=== PATIENT | male | born 1960 | race Caucasian/White ===

== ENCOUNTER 2023-05-29 02:34 | Inpatient (IN) ==
--- OUTSIDE RECORDS SUMMARY | 2023-05-29 02:40 | External Medical Summary | Summary of Care ---
Author Name Unknown Organization [facility] Address [address] [place] [address] Phone [phone] Care Team Providers Care It Project Coordinator Name Role Phone Rodo Pineda Primary Care Provider Reason for Visit * Reason Comments Outpatient Testing Encounter Details Date Type Department Care Team (Late st Contact Info) Description 03/04/2023 2:10 PM EDT Laboratory Laboratory, [facility] [address] [place] [id number] [facility] [address] [place] [id number] Acquired hypothyroidism; Schizoaffective disorder, bipolar type ([facility]); Prediabetes; DYSLIPIDEMIA, GOAL LDL BELOW 70; HOCM (hypertrophic obstructive cardiomyopathy) ([facility]) Allergies Active Allergy Reactions Criticality Noted Date Comments Bee Stings Hives Medium 03/08/2009 Niacin Itching High 03/26/2011 Penicillin V Potassium 08/26/2007 Pt told as a child he was allergic to it documented as of this encounter (statuses as of 03/04/2023) Medications Medication Sig Dispensed Refills Start Date End Date Status BENZTROPINE MESYLATE 1 MG PO TABSIndications:S chizoaffective disorder, chronic condition (HCC) 1 tab daily 30 5 09/02/2007 Active LOXAPINE SUCCINATE 50 MG PO CAPSIndications:S chizoaffective disorder, chronic condition (HCC) 1 cap at bedtime 60 Cap 2 04/16/2011 Active SERTRALINE HCL 100 MG PO TABSIndications:S chizoaffective disorder, chronic condition (HCC),Anxiety state one pill each day 100 Tab 0 10/08/2011 Active EPINEPHrine, anaphylaxis, (EPI-PEN) 0.3 MG/0.3ML SOAJ injection For a severe reaction: Place orange end against the outer thigh, press firmly, hold in place for 10 seconds and go to the Emergency room. 2 Device 3 08/01/2015 Active busPIRone (BUSPAR) 10 MG TabletIndications :Anxiety state Take 1 Tablet by mouth in the morning and 1 Tablet at noon and 1 Tablet before bedtime. 180 Tab 3 08/21/2016 Active hydrOXYzine Pamoate 50 MG Oral Capsule Take 1 Capsule by mouth 2 times a day as needed (anxiety/depressi on). 0 Active oxygen IN GAS Administer into nostril 2 L/min(Oxygen) continuous . 1 Each 0 10/17/2021 Active Additional Information Patient not taking.Reported on 11/19/2022 Combivent Respimat 20-100 MCG/ACT Inhalation Aerosol Solution (Ipratropium-Albu terol)Indications :COPD, severity to be determined (HCC) USE 1 INHALATION ORALLY 4 TIMES DAILY NEEDED FOR COUGH OR WHEEZING 12 g 3 04/30/2022 Active Lisinopril 40 MG Oral TabletIndications :HTN, goal below 130/80 TAKE 1 TABLET DAILY 90 Tablet 3 05/28/2022 Active Montelukast Sodium 10 MG Oral Tablet (Singulair)Indica tions:COPD, severity to be determined (HCC) TAKE 1 TABLET DAILY 90 Tablet 3 05/28/2022 Active amLODIPine Besylate 5 MG Oral Tablet (Norvasc) TAKE 1 TABLET DAILY 90 Tablet 3 07/05/2022 Active Lovastatin 40 MG Oral TabletIndications :Dyslipidemia, goal LDL below 70 TAKE 1 TABLET DAILY 90 Tablet 3 07/05/2022 Active Trelegy Ellipta 100-62.5-25 MCG/ACT Aerosol Powder Breath Activated (Fluticasone-Umec lidinium-Vilanter ol) Inhale 1 Puff by mouth in the morning. 180 Blister Dosing Unit 1 08/13/2022 Active metFORMIN HCl ER 500 MG Oral Tablet Extended Release 24 Hour (Glucophage XR) Take 2 Tablets by mouth at bedtime. 180 Tablet 3 11/19/2022 Active Levothyroxine Sodium 137 MCG Oral Tablet Take 1 Tablet by mouth in the morning. (at least 30 min prior to breakfast or other meds). 90 Tablet 3 12/03/2022 03/04/2023 Active Carvedilol 12.5 MG Oral Tablet (Coreg)Indication s:HOCM (hypertrophic obstructive cardiomyopathy) (HCC) TAKE 1 TABLET TWICE A DAY 180 Tablet 1 02/08/2023 Active documented as of this encounter (statuses as of 03/04/2023) Active Problems Problem Noted Date Diagnosed Date Medical marijuana use 03/04/2023 Need for prophylactic vaccin ation and inoculation against influenza 03/04/2023 Right kidney mass 08/13/2022 Moderate persistent asthma without complication 08/13/2022 Chronic respiratory failure with hypoxia, on home oxygen therapy 11/14/2021 Grade I diastolic dysfunction 09/27/2021 Body mass index (BMI) of 50.0 to 59.9 in adult 0 08/20/2021 Overview: Per Obesity protocol - Decreased visual acuity 12/17/2017 Prediabetes 07/22/2017 Overview: Per Prediabetes protocol #1 Chronic pain of left knee 07/07/2017 Alcohol dependence in remission 08/21/2016 Acquired hypothyroidism 11/07/2015 Heart murmur 05/04/2014 HOCM (hypertrophic obstructive cardiomyopathy) 0 10/14/2012 HTN, goal below 130/80 06/06/2011 Injury of ulnar nerve 03/26/2011 Carpal tunnel syndrome 02/28/2011 Incisional hernia 05/25/2009 DYSLIPIDEMIA, GOAL LDL BELOW 70 04/25/2009 Overview: Per Lipid Taxonomy. COPD, group B, by GOLD 2017 classification 03/08 Edema 03/08/2009 ADVANCE DIRECTIVE INFORMATION 11/09/2007 Overview: Yes, Patient instructed to provide copy of advance directive for provider to review and to be scanned into Electronic Medical Record Constipation 10/19/2007 Schizoaffective disorder, chronic condition 08/10 Unilateral inguinal hernia 08/26/2007 Anxiety state 08/26/2007 Knee pain, left 08/26/2007 documented as of this encounter (statuses as of 03/04/2023) Resolved Problems Problem Noted Date Diagnosed Date Resolved Date MICHELLE (dyspnea on exertion) 09/27/2021 External hemorrhoid 12/17/2017 03/04/20 23 COPD, mild 02/19/2017 05/14/2022 Body mass index (BMI) of 45. 0 to 49.9 in adult 02/10/2017 08/23/2021 Overview: Per Obesity protocol #1 Body mass index (BMI) of 40.0-44.9 in adult 07/26/2010 02/13/2017 Overview: Per Obesity protocol #1 Asthma with severity to be determined 11/02/2009 08/13/2022 Overview: Per Asthma Taxonomy ICD-10 update of inactive term Asthma, mild persistent 11/02/200906/13 Overview: Per Provider Protocol. Obesity, morbid (more than 1 00 lbs over ideal weight or BMI > 40) 08/08/2009 07/26/2010 Overview: Per Obesity Taxonomy ICD-10 update of inactive term ASCVD (arteriosclerotic card iovascular disease) 2009 05/22/2011 Alcohol abuse, unspecified 01/20/2008 0 08/21/2016 Stable angina 10/08/2007 05/22/2011 HTN, goal below 140/90 08/26/200702/28 HYPOTHYROIDISM NOS 08/26/2007 6 Asthma, allergic 08/26/2007 11/02/2009 Mixed dyslipidemia 08/26/2007 9 Overview: Per Lipid Taxonomy. Obesity, BMI not known 08/26/200708/08 Overview: Per Obesity Taxonomy History of tobacco use 08/26/200711/14 documented as of this encounter (statuses as of 03/04/2023) Immunizations Name Administration Dates Next Due COVID-19 mRNA, LNP-s, No Pre serve, 2-Dose Series (Moderna) 07/25/2020,06/27/2020 HEP A - Hepatitis A (Adult > 18 yrs) 09/09/2002, 04/11/2002 Hepatitis B, 20+ yrs 09/09/2002,05/12/2002,04/11 PPD 09/08/2006 Pneumococcal Conjugate Vacci ne, 20-valent (Pryxvun22) 11/14/2021 Pneumococcal Polysaccharide PPV23 (Pneumovax) 04/17/2003 SEASONAL INFLUENZA, PF, 6 M & Above, IM , (FLULAVAL or FLUZONE) 03/04/2023,03/10/2021,02/19/2017 Seasonal Influenza, Quadrivalent, ID 02/21/2022 Seasonal Influenza, Quadriva lent, No Preserve, IM 04/08/2016 Seasonal Influenza, Split, I IV3, With Preserve, Inj 05/04/2014,04/15/2013,04/15/2012,02/28,03/23/2010,02/06/2009,03/13/2007 TD - Tetanus/Diptheria (ADULT) 04/28/2006 TDAP (age 10 and older)(Boostrix) 04/15/2012 Zoster Vaccine Recombinant (Shingrix) 11/14/2021 ,07/31/2021 documented as of this encounter Social History Tobacco Use Types Packs/Day Years Used Date Smoking Tobacco: Former Cigarettes 1 41 0 06/28/2013 - 07/09/2013 Smokeless Tobacco: Current Snuff Alcohol Use Standard Drinks/Week Comments No 0 (1 standard drink = 0.6 oz pure alcohol) alcoholic -sober for "85 days" as of 03/26/10 PHQ-2 Answer Date Recorded PHQ Adult Total Score 0 11/19/2022 Hunger Vital Sign Answer Date Recorded Worried About Running Out of Food in the Last Ye ar Never true 06/06/2020 Ran Out of Food in the Last Year Never true 06/06/2020 Sex and Gender Information Value Date Recorded Sex Assigned at Not on file Gender Identity Not on file Sexual Orientation Not on file Job Start Date Occupation Industry Not on file Not on file Not on file documented as of this encounter Plan of Treatment Upcoming Encounters Date Type Department Care Team (Late st Contact Info) Description 05/27/2023 11:40 AM EST Office Visit Family Practice [facility] [address] [place] [id number] Renae Costello CRNP [address] [place] [phone] Pending Results Name Type Priority Associated Diagnoses Date /Time TSH WITH FREE T4 IF INDICATED Lab Routine Acquired hypothyroidism 03/04/2023 2:15 PM EDT CBC WITH WBC DIFFERENTIAL Lab Routine Schizoaffective disorder, bipolar type (HCC) 03/04/2023 2:15 PM EDT COMPREHENSIVE METABOLIC PANEL Lab Routine Schizoaffective disorder, bipolar type (HCC) 03/04/2023 2:15 PM EDT HEMOGLOBIN A1C Lab Routine Schizoaffective disorder, bipolar type (HCC) 03/04/2023 2:15 PM EDT LIPID PANEL WITH DIRECT LDL IF TG IS HIGH Lab Routine Schizoaffective disorder, bipolar type (HCC) 03/04/2023 2:15 PM EDT LITHIUM LEVEL Lab Routine Schizoaffective disorder, bipolar type (HCC) 03/04/2023 2:15 PM EDT T4, FREE Lab Routine Schizoaffective disorder, bipolar type (HCC) 03/04/2023 2:15 PM EDT CBC Lab Routine Schizoaffective disorder, bipolar type (HCC) 03/04/2023 2:15 PM EDT DIFFERENTIAL, AUTOMATED Lab Routine Schizoaffective disorder, bipolar type (HCC) 03/04/2023 2:15 PM EDT Scheduled Procedures Name Priority Associated Diagnoses Date/Ti me COLONOSCOPY FLEXIBLE PROXIMAL DIAGNOSTIC Recall History of colon polyps Health Maintenance Due Date Last Done Comments DTaP,Tdap,and Td Vaccines (2 - Td or Tdap) 04/15/2022 04/15/2012, 04/28/2006 COVID-19 Vaccine (3 - 2022- season) 2023 07/25/2020, 06/27/2020 COLONOSCOPY-EVERY 3 YRS AGES 18-100 09/09/2023 09/08/2020, 08/29/2015, 08/29/2015, Additional history exists Depression Screening 11/20/2023 11/19/2022 GFR 11/20/2023 11/19/2022, 07/2022, 11/14/2021, Additional history exists HbA1c 11/20/2023 11/19/2022, 07/2022, 11/14/2021, Additional history exists O2 ASSESSMENT COMPLETED IN PAST YEAR FOR COPD 11/20/2023 11/19/2022 TSH 01/08/2024 01/07/2023, 11/09, 05/14/2022, Additional history exists Albumin/Creatinine Ratio 05/14/2025 05/14/2022 Lipid Panel 11/14/2026 11/14/2021, 04/12, 03/15/2020, Additional history exists Hepatitis B Completed 09/09/2002, 05/2002, 04/11/2002 COLONOSCOPY-EVERY 5 YRS AGES 18-100 Discontinued 09/08/2020, 08/29/2015, 08/29/2015, Additional history exists Alpha-1 Antitrypsin Completed 07/31/2021 Pneumococcal Vaccine: Pediatrics (0 to 5 Years) and At-Risk Patients (6 to 64 Years) Completed 11/14/2021, 04/17/2003 Zoster Vaccines Completed 11/14/2021, 07/31/2021 LUNG CANCER SCREENING - USE SMARTSET [id number] Completed 07/30/2022, 07/16/2021, 07/14/2018, Additional history exists Influenza Vaccine (FLU shot) Completed 03/04/2023, 02/21/2022, 03/10/2021, Additional history exists GARDASIL-HPV IMMUNIZATION SERIES Aged Out No longer eligible based on patient's age to complete this topic MENINGOCOCCAL (MENACTRA/MENVEO) Aged Out No longer eligible based on patient's age to complete this topic documented as of this encounter Medical Devices Implanted Type Area Grass Cutter Device Identifier Shelf Expiration Date Model / Serial / Lot Mesh Supramesh [id number] - [id number] Implanted:Qty: 1 on 05/27/2009 [place] [facility] [place]: Abdomen CR BARD : DAVOL 03/12/2011 [id number] / / [id number] documented as of this encounter Visit Diagnoses Diagnosis Acquired hypothyroidism Unspecified hypothyroidism Schizoaffective disorder, bipolar type (HCC) Schizoaffective disorder, unspecified condition Prediabetes Other abnormal glucose DYSLIPIDEMIA, GOAL LDL BELOW 70 Other and unspecified hyperlipidemia HOCM (hypertrophic obstructive cardiomyopathy) (HCC) Hypertrophic obstructive cardiomyopathy documented in this encounter Advance Directives Latest Code Status on File Code Status Date Activated Date Inactivated Comments Full Code 05/27/2009 1:25 PM 06/01/2009 5:29 PM This order reflects the patients wishes and were consensually agreed upon. Question Answer Comments Discussion of Advance Directives occurred with: Patient Code Status History Code Status Date Activated Date Inactivated Comments Full Code 05/27/2009 12:40 PM 05/27/2009 1:25 PM This order reflects the patients wishes and were consensually agreed upon. Full Code 05/25/2009 12:49 PM 05/27/2009 12:40 PM Thi s order reflects the patients wishes and were consensually agreed upon. Care Teams It Project Coordinator Relationship Specialty Start Date End Date Rodo Pineda DO [address] [place] [id number] PCP - General Family Medicine 12/17/17 documented as of this encounter
--- OUTSIDE RECORDS SUMMARY | 2023-05-29 02:40 | External Medical Summary ---
Author Name Unknown Address Unknown Organization [id number]:[facility] [address] [place] [address] Laboratory Report Ordering Provider Test Date Status KAMAR SMITH 03/04/2023 14:15:34 Final Observation Date Value Abnormality Reference (Units ) Status SYNC LEUKOCYTES IN BLOOD BY AUTOMATED COUNT 03/04/2023 14:15:34 9.33 4.00-10.80 (K/uL) Final Segs 03/04/2023 14:15:34 73.3 40.0-75.0 (%) Final Lymphs % 03/04/2023 14:15:34 18.3 18.0-42.0 (%) Final Monos 03/04/2023 14:15:34 6.4 1.0-11.0 (%) Final Eosinophils 03/04/2023 14:15:34 1.6 0.0-6.0 (%) Final Basos 03/04/2023 14:15:34 0.4 0.0-2.0 (%) Final Absolute Segs 03/04/2023 14:15:34 6.83 1.80-7.70 (K/uL) Final Lymphs, absolute 03/04/2023 14:15:34 1.71 1.00-4.80 (K/ul) Final Monos, Abs 03/04/2023 14:15:34 0.60 0.00-1.10 (K/uL) Final Eos, Abs 03/04/2023 14:15:34 0.15 0.00-0.70 (K/uL) Final Basos, Abs 03/04/2023 14:15:34 0.04 0.00-0.20 (K/uL) Final [facility] [place] [id number]
--- OUTSIDE RECORDS SUMMARY | 2023-05-29 02:40 | External Medical Summary ---
Author Name Unknown Address Unknown Organization [id number]:[facility] [place] - [facility] [address] [facility] [id number] Laboratory Report Ordering Provider Test Date Status KAMAR SMITH 03/04/2023 14:15:34 Final Observation Date Value Abnormality Reference (Units ) Status HbA1C 03/04/2023 14:15:34 6.0 Above high normal 4. 0-5.6 (%) Final The use of HbA1c to monitor glycemic status is based on normal hemoglobin and HbA composition. This test should not be used in patients with abnormal hemoglobin that affects the half life of the red blood cell or the in vivo glycation rates. Glucose, estimated average 03/04/2023 14:15:34 126 Above high normal <126 (mg/dL) Akin al Performing Location [facility] - [facility] [address] [facility] [address] [facility] [address]
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
--- OUTSIDE RECORDS SUMMARY | 2023-05-29 02:40 | External Medical Summary | Summary of Care ---
Author Name Unknown Organization [facility] Address [address] [place] [address] Phone [phone] Care Team Providers Care Hearing Therapist Name Role Phone Tyrell Pineda DO Primary Care Provider Reason for Visit * Reason Comments eRx-Medication Refill Encounter Details Date Type Department Care Team (Late st Contact Info) Description 05/17/2023 Refill Family Practice [facility] [address] [place] [phone] Tyrell Pineda DO [address] [place] [address] CHRONIC AIRWAY OBSTRUCTION NEC (HCC); HTN, goal below 130/80 Allergies Active Allergy Reactions Criticality Noted Date Comments Bee Stings Hives Medium 03/08/2009 Niacin Itching High 03/26/2011 Penicillin V Potassium 08/26/2007 Pt told as a child he was allergic to it documented as of this encounter (statuses as of 05/19/2023) Medications Medication Sig Dispensed Refills Start Date End Date Status BENZTROPINE MESYLATE 1 MG PO TABSIndications: Schizoaffective disorder, chronic condition (HCC) 1 tab daily 30 5 09/02/2007 Active LOXAPINE SUCCINATE 50 MG PO CAPSIndications: Schizoaffective disorder, chronic condition (HCC) 1 cap at bedtime 60 Cap 2 04/16/2011 Active SERTRALINE HCL 100 MG PO TABSIndications: Schizoaffective disorder, chronic condition (HCC),Anxiety state one pill each day 100 Tab 0 10/08/2011 Active EPINEPHrine, anaphylaxis, (EPI-PEN) 0.3 MG/0.3ML SOAJ injection For a severe reaction: Place orange end against the outer thigh, press firmly, hold in place for 10 seconds and go to the Emergency room. 2 Device 3 08/01/2015 Active busPIRone (BUSPAR) 10 MG TabletIndication s:Anxiety state Take 1 Tablet by mouth in the morning and 1 Tablet at noon and 1 Tablet before bedtime. 180 Tab 3 08/21/2016 Active hydrOXYzine Pamoate 50 MG Oral Capsule Take 1 Capsule by mouth 2 times a day as needed (anxiety/depress ion). 0 Active oxygen IN GAS Administer into nostril 2 L/min(Oxygen) continuous . 1 Each 0 10/17/2021 Active Additional Information Patient not taking.Reported on 11/19/2022 Combivent Respimat 20-100 MCG/ACT Inhalation Aerosol Solution (Ipratropium-Alb uterol)Indicatio ns:COPD, severity to be determined ([facility]) USE 1 INHALATION ORALLY 4 TIMES DAILY NEEDED FOR COUGH OR WHEEZING 12 g 3 04/30/2022 Active amLODIPine Besylate 5 MG Oral Tablet (Norvasc) TAKE 1 TABLET DAILY 90 Tablet 3 07/05/2022 Active Lovastatin 40 MG Oral TabletIndication s:Dyslipidemia, goal LDL below 70 TAKE 1 TABLET DAILY 90 Tablet 3 07/05/2022 Active metFORMIN HCl ER 500 MG Oral Tablet Extended Release 24 Hour (Glucophage XR) Take 2 Tablets by mouth at bedtime. 180 Tablet 3 11/19/2022 Active Carvedilol 12.5 MG Oral Tablet (Coreg)Indicatio ns:HOCM (hypertrophic obstructive cardiomyopathy) (HCC) TAKE 1 TABLET TWICE A DAY 180 Tablet 1 02/08/2023 Active Trelegy Ellipta 100-62.5-25 MCG/ACT Aerosol Powder Breath Activated (Fluticasone-Ume clidinium-Vilant rodri) Inhale 1 Puff by mouth in the morning. 180 Blister Dosing Unit 2 05/16/2023 Active Montelukast Sodium 10 MG Oral Tablet (Singulair)Indic ations:COPD, severity to be determined (HCC) TAKE 1 TABLET DAILY 90 Tablet 2 05/19/2023 Active Lisinopril 40 MG Oral TabletIndication s:HTN, goal below 130/80 TAKE 1 TABLET DAILY 90 Tablet 2 05/19/2023 Active Lisinopril 40 MG Oral TabletIndication s:HTN, goal below 130/80 TAKE 1 TABLET DAILY 90 Tablet 3 05/28/2022 05/19/19 24 Discontinued Montelukast Sodium 10 MG Oral Tablet (Singulair)Indic ations:COPD, severity to be determined (HCC) TAKE 1 TABLET DAILY 90 Tablet 3 05/28/2022 05/19/19 24 Discontinued documented as of this encounter (statuses as of 05/19/2023) Active Problems Problem Noted Date Diagnosed Date Body mass index (BMI) of 45.0 to 49.9 in adult 1 05/24/2022 Overview: Per Obesity protocol - Per Obesity protocol - Medical marijuana use 03/04/2023 Need for prophylactic vaccin ation and inoculation against influenza 03/04/2023 Right kidney mass 08/13/2022 Moderate persistent asthma without complication 08/13/2022 Chronic respiratory failure with hypoxia, on home oxygen therapy 11/14/2021 Grade I diastolic dysfunction 09/27/2021 Decreased visual acuity 12/17/2017 Prediabetes 07/22/2017 Overview: [...] as of this encounter (statuses as of 05/19/2023) Resolved Problems Problem Noted Date Diagnosed Date Resolved Date MICHELLE (dyspnea on exertion) 09/27/2021 Body mass index (BMI) of 50. 0 to 59.9 in adult 08/20/2021 03/27/2023 Overview: Per Obesity protocol - External hemorrhoid 12/17/2017 03/04/20 23 COPD, mild [...] as of this encounter (statuses as of 05/19/2023) Immunizations Name Administration Dates Next Due COVID-19 mRNA, LNP-s, No Pre serve, 2-Dose Series (Moderna) 07/25/2020,06/27/2020 HEP A - Hepatitis A (Adult > 18 yrs) 09/09/2002, 04/11/2002 Hepatitis B, 20+ yrs 09/09/2002,05/12/2002,04/11 PPD 09/08/2006 Pneumococcal Conjugate Vacci ne, 20-valent ([id number]) 11/14/2021 Pneumococcal Polysaccharide PPV23 (Pneumovax) 04/17/2003 Seasonal Influenza, PF, 6 M & above, IM , (FluLaval or Fluzone) 03/04/2023,03/10/2021,02/19/2017 Seasonal Influenza, Quadrivalent, ID 02/21/2022 Seasonal [...] on file documented as of this encounter Miscellaneous Notes * Telephone Encounter - Iain Corado [facility] - 05/19/2023 10:48 AM ESTSigned Prescriptions: Disp Refills Montelukast Sodium 10 MG Oral Tablet (Sing*90 Tab*2 Sig: TAKE 1TABLET DAILYAuthorizing Provider: TYRELL PINEDA User: IAIN CORADO [id number] MG Oral Tablet 90 Tab*2 Sig: TAKE 1 TABLET DAILYAuthorizing Provider: TYRELL PINEDA User: IAIN CORADO documented in this encounter Plan of Treatment Upcoming Encounters Date Type Department Care Team (Late st Contact Info) Description 05/27/2023 11:40 AM EST Office Visit Family Practice [facility] [address] [facility] [place] [address] Renae Costello CRNP [address] [facility] [place] [phone] Scheduled Procedures Name Priority Associated Diagnoses Date/Ti me COLONOSCOPY FLEXIBLE PROXIMAL DIAGNOSTIC Recall History of colon polyps Health Maintenance Due Date Last Done Comments DTaP,Tdap,and Td Vaccines (2 - Td or Tdap) 04/15/2022 04/15/2012, 04/28/2006 COVID-19 Vaccine (3 - 2022- season) 2023 07/25/2020, 06/27/2020 COLONOSCOPY-EVERY 3 YRS AGES 18-100 09/09/2023 09/08/2020, 08/29/2015, 08/29/2015, Additional history exists Depression Screening 11/20/2023 11/19/2022 O2 ASSESSMENT COMPLETED IN PAST YEAR FOR COPD 11/20/2023 11/19/2022 GFR 03/04/2024 03/04/2023, 11/09, 05/14/2022, Additional history exists HbA1c 03/04/2024 03/04/2023, 11/09, 05/14/2022, Additional history exists Albumin/Creatinine Ratio 05/14/2025 05/14/2022 Lipid Panel 03/04/2028 03/04/2023, 10/2021, 04/30/2021, Additional history exists Hepatitis B Completed 09/09/2002, 05/2002, 04/11/2002 COLONOSCOPY-EVERY 5 YRS AGES 18-100 Discontinued 09/08/2020, 08/29/2015, 08/29/2015, Additional history exists Alpha-1 Antitrypsin Completed 07/31/2021 Pneumococcal Vaccine: Pediatrics (0 to 5 Years) and At-Risk Patients (6 to 64 Years) Completed 11/14/2021, 04/17/2003 Zoster Vaccines Completed 11/14/2021, 07/31/2021 LUNG CANCER SCREENING - USE SMARTSET [id number] Completed 07/30/2022, 07/16/2021, 07/14/2018, Additional history exists Influenza Vaccine (FLU shot) Completed 03/04/2023, 02/21/2022, 02/19/2022, Additional history exists GARDASIL-HPV IMMUNIZATION SERIES Aged Out No longer eligible based on patient's age to complete this topic MENINGOCOCCAL (MENACTRA/MENVEO) Aged Out No longer eligible based on patient's age to complete this topic documented as of this encounter Medical Devices Implanted Type Area Freight Sales Broker Device Identifier Shelf Expiration Date Model / Serial / Lot Mesh Supramesh [id number] - [id number] Implanted:Qty: 1 on 05/27/2009 at [place] [facility] [place] N/A: Abdomen CR BARD : DAVOL 03/12/2011 [id number] / / [id number] documented as of this encounter Visit Diagnoses Diagnosis CHRONIC AIRWAY OBSTRUCTION NEC (HCC) Chronic airway obstruction, not elsewhere classified HTN, goal below 130/80 Unspecified essential hypertension documented in this encounter Advance Directives Latest [...] and were consensually agreed upon. Care Teams Hearing Therapist Relationship Specialty Start Date End Date Tyrell Pineda DO [address] [place] [phone] PCP - General Family Medicine 12/17/17 documented as of this encounter
--- OUTSIDE RECORDS SUMMARY | 2023-05-29 02:40 | External Medical Summary | Summary of Care ---
Author Name Unknown Organization [facility] Address [address] [place] [facility] [address] Phone [phone] Care Team Providers Care Appliance Service Representative Name Role Phone Rodo Pineda Primary Care Provider Reason for Visit * Reason Onset Date Comments Forms Request 03/18/2023 Encounter Details Date Type Department Care Team (Late st Contact Info) Description 03/18/2023 Telephone Family Practice [facility] [address] [place] [address] Ofe Cagle LPN Forms Request Allergies Active Allergy Reactions Criticality Noted Date Comments Bee Stings Hives Medium 03/08/2009 Niacin Itching High 03/26/2011 Penicillin V Potassium 08/26/2007 Pt told as a child he was allergic to it documented as of this encounter (statuses as of 03/18/2023) Medications Medication Sig Dispensed Refills Start Date End Date Status BENZTROPINE MESYLATE 1 MG PO TABSIndications:Sc hizoaffective disorder, chronic condition (HCC) 1 tab daily 30 5 09/02/2007 Active LOXAPINE SUCCINATE 50 MG PO CAPSIndications:Sc hizoaffective disorder, chronic condition (HCC) 1 cap at bedtime 60 Cap 2 04/16/2011 Active SERTRALINE HCL 100 MG PO TABSIndications:Sc hizoaffective disorder, chronic condition (HCC),Anxiety state one pill each day 100 Tab 0 10/08/2011 Active EPINEPHrine, anaphylaxis, (EPI-PEN) 0.3 MG/0.3ML SOAJ injection For a severe reaction: Place orange end against the outer thigh, press firmly, hold in place for 10 seconds and go to the Emergency room. 2 Device 3 08/01/2015 Active busPIRone (BUSPAR) 10 MG TabletIndications: Anxiety state Take 1 Tablet by mouth in [...] Combivent Respimat 20-100 MCG/ACT Inhalation Aerosol Solution (Ipratropium-Albut rodri)Indications:C OPD, severity to be determined ([facility]) USE 1 INHALATION ORALLY 4 TIMES DAILY NEEDED FOR COUGH OR WHEEZING 12 g 3 04/30/2022 Active Lisinopril 40 MG Oral TabletIndications: HTN, goal below 130/80 TAKE 1 TABLET DAILY 90 Tablet 3 05/28/2022 Active Montelukast Sodium 10 MG Oral Tablet (Singulair)Indicat ions:COPD, severity to be determined (HCC) TAKE 1 TABLET DAILY 90 Tablet 3 05/28/2022 Active amLODIPine Besylate 5 MG Oral Tablet (Norvasc) TAKE 1 TABLET DAILY 90 Tablet 3 07/05/2022 Active Lovastatin 40 MG Oral TabletIndications: Dyslipidemia, goal LDL below 70 TAKE 1 TABLET DAILY 90 Tablet 3 07/05/2022 Active Trelegy Ellipta 100-62.5-25 MCG/ACT Aerosol Powder Breath Activated (Fluticasone-Umecl idinium-Vilanterol ) Inhale 1 Puff by mouth in the morning. 180 Blister Dosing Unit 1 08/13/2022 Active metFORMIN HCl ER 500 MG Oral Tablet Extended Release 24 Hour (Glucophage XR) Take 2 Tablets by mouth at bedtime. 180 Tablet 3 11/19/2022 Active Carvedilol 12.5 MG Oral Tablet (Coreg)Indications :HOCM (hypertrophic obstructive cardiomyopathy) (HCC) TAKE 1 TABLET TWICE A DAY 180 Tablet 1 02/08/2023 Active documented as of this encounter (statuses as of 03/18/2023) Active Problems Problem Noted Date Diagnosed Date [...] as of this encounter (statuses as of 03/18/2023) Resolved Problems Problem Noted Date Diagnosed Date Resolved Date MICHELLE (dyspnea on exertion) 09/27/2021 External hemorrhoid 12/17/2017 03/04/20 COPD, mild 02/19/2017 05/14/2022 Body mass index [...] as of this encounter (statuses as of 03/18/2023) Immunizations Name Administration Dates Next Due COVID-19 mRNA, LNP-s, No Pre serve, 2-Dose Series (Moderna) 07/25/2020,06/27/2020 HEP A - Hepatitis A (Adult > 18 yrs) 09/09/2002, 04/11/2002 Hepatitis B, 20+ yrs 09/09/2002,05/12/2002,04/11 PPD 09/08/2006 Pneumococcal Conjugate Vacci ne, 20-valent ([id number]) 11/14/2021 Pneumococcal Polysaccharide PPV23 (Pneumovax) 04/17/2003 SEASONAL [...] encounter Miscellaneous Notes * Telephone Encounter - Ofe Cagle LPN - 03/18/2023 4:17 PM EST Received forms request from [facility]. Form requested recent labs and vitals along with diagnosis list. Form faxed to Attn: Ronel Mayfield RN at [phone]. Form placed in scanning. documented in this encounter Plan of Treatment Upcoming Encounters Date Type Department Care Team (Late st Contact Info) Description 05/27/2023 11:40 AM EST Office Visit [facility] [address] [place] [address] Renae Costello CRNP [address] [place] [address] Scheduled Procedures Name Priority Associated Diagnoses Date/Ti [...] 07/31/2021 LUNG CANCER SCREENING - USE SMARTSET [id number] Completed 07/30/2022, 07/16/2021, 07/14/2018, Additional history exists Influenza Vaccine (FLU shot) Completed 03/04/2023, 02/21/2022, 03/10/2021, Additional history exists GARDASIL-HPV IMMUNIZATION SERIES Aged Out No longer eligible based on patient's age to complete this topic MENINGOCOCCAL (MENACTRA/MENVEO) Aged Out No longer eligible based on patient's age to complete this topic documented as of this encounter Medical Devices Implanted Type Area Netbackup Engineer Device Identifier Shelf Expiration Date Model / Serial / Lot Mesh Supramesh 4x8 [id number] - [id number] Implanted:Qty: 1 on 05/27/2009 [place] [facility] [place]: Abdomen CR BARD : DAVOL 03/12/2011 [id number] / / [id number] documented as of this encounter Advance Directives Latest Code Status [...] and were consensually agreed upon. Care Teams Appliance Service Representative Relationship Specialty Start Date End Date Rodo Pineda DO [address] [place] [address] PCP - General Family Medicine 12/17/17 documented as of this encounter
--- OUTSIDE RECORDS SUMMARY | 2023-05-29 02:40 | External Medical Summary | Summary of Care ---
Author Name Unknown Organization [facility] Address [address] [facility] [address] Phone [phone] Care Team Providers Care Mat Cutter Name Role Phone Tyrell Pineda DO Primary Care Provider Reason for Visit * Reason Onset Date Comments Medication Refill 05/15/2023 Encounter Details Date Type Department Care Team (Late st Contact Info) Description 05/15/2023 Refill Family Practice [facility] [address] [place] [address] Tyrell Pineda DO [address] [place] [address] Allergies Active Allergy Reactions Criticality Noted Date Comments Bee Stings Hives Medium 03/08/2009 Niacin Itching High 03/26/2011 Penicillin V Potassium 08/26/2007 Pt told as a child he was allergic to it documented as of this encounter (statuses as of 05/16/2023) Medications Medication Sig Dispensed Refills Start Date [...] (Ipratropium-Albu terol)Indications :COPD, severity to be determined ([facility]) USE 1 INHALATION ORALLY 4 TIMES DAILY NEEDED FOR COUGH OR WHEEZING 12 g 3 04/30/2022 Active Lisinopril 40 MG Oral TabletIndications :HTN, goal below 130/80 TAKE 1 TABLET DAILY 90 Tablet 3 05/28/2022 Active Montelukast Sodium 10 MG Oral Tablet (Singulair)Indica tions:COPD, severity to be determined ([facility]) TAKE 1 TABLET DAILY 90 Tablet 3 [...] 11/19/2022 Active Carvedilol 12.5 MG Oral Tablet (Coreg)Indication s:HOCM (hypertrophic obstructive cardiomyopathy) ([facility]) TAKE 1 TABLET TWICE A DAY 180 Tablet 1 02/08/2023 Active Trelegy Ellipta 100-62.5-25 MCG/ACT Aerosol Powder Breath Activated (Fluticasone-Umec lidinium-Vilanter ol) Inhale 1 Puff by mouth in the morning. 180 Blister Dosing Unit 2 05/16/2023 Active Trelegy Ellipta 100-62.5-25 MCG/ACT Aerosol Powder Breath Activated (Fluticasone-Umec lidinium-Vilanter ol) Inhale 1 Puff by mouth in the morning. 180 Blister Dosing Unit 1 08/13/2022 4 Discontinue d(Refill) documented as of this encounter (statuses as of 05/16/2023) Active Problems Problem Noted Date Diagnosed Date [...] as of this encounter (statuses as of 05/16/2023) Resolved Problems Problem Noted Date Diagnosed Date [...] as of this encounter (statuses as of 05/16/2023) Immunizations Name Administration Dates Next Due COVID-19 mRNA, LNP-s, No Pre serve, 2-Dose Series (Moderna) 07/25/2020,06/27/2020 HEP A - Hepatitis A (Adult > 18 yrs) 09/09/2002, 04/11/2002 Hepatitis B, 20+ yrs 09/09/2002,05/12/2002,04/11 PPD 09/08/2006 Pneumococcal Conjugate Vacci ne, 20-valent ([id number]) 11/14/2021 Pneumococcal Polysaccharide PPV23 (Pneumovax) 04/17/2003 Seasonal [...] encounter Miscellaneous Notes * Telephone Encounter - Maida Han RP - 05/16/2023 4:09 PM ESTSigned Prescriptions: Disp Refills Trelegy Ellipta 100-62.5-25 MCG/ACT Aeroso*180 Bl*2 Sig: Inhale 1 Puff by mouth in the morning. Authorizing Provider: TYRELL PINEDA Ordering User: MAIDA HAN * Telephone Encounter - Mary Lima CPhT - 05/15/2023 5:16 PM EST Did you pend patient's preferred pharmacy and medication before forwarding?yes [id number] Pending Prescriptions: Disp Refills Trelegy Ellipta 100-62.5-25 MCG/ACT Aeros*180 Bl*1 Sig: Inhale 1 Puff by mouth in the morning. Last Visit: 03/04/2023 (in office), 06/06/2020 (telemedicine) Next Visit: 05/27/2023 If no future appointments scheduled, and last appointment is greater than a year ago, please schedule patient for a follow-up appointment Last date the medication was ordered: 08/13/2022 Is this request for a controlled substance?No Urine Drug Screen:No results found for this or any previous visit. Patient Phone Numbers Labs: Lab Results Component Value Date/Time CREAT 0.9 03/04/2023 02:15 PM CREAT 0.9 03/15/2020 10:38 AM POTASSIUM 4.7 03/04/2023 02:15 PM POTASSIUM 4.6 03/15/2020 10:38 AM TSH 1.87 03/04/2023 02:15 PM TSH 2.80 03/15/2020 10:38 AM LDLCALC 85 03/04/2023 02:15 PM LDLCALC 91 06/24/2018 10:39 AM LDLDIRECT 101 03/15/2020 10:38 AM LDLDIRECT 135 (H) 07/06/2015 12:49 PM ALT 16 03/04/2023 02:15 PM ALT 17 07/07/2017 10:20 AM HGBA1C 6.0 (H) 03/04/2023 02:15 PM HGBA1C 5.7 (H) 01/06/2019 10:54 AM documented in this encounter Plan of Treatment Upcoming Encounters Date Type Department Care Team (Late st Contact Info) Description 05/27/2023 11:40 AM EST Office Visit Family Practice [facility] [address] [place] [address] Renae Costello CRNP [address] [place] [address] Scheduled Procedures Name Priority Associated Diagnoses Date/Ti me COLONOSCOPY FLEXIBLE PROXIMAL DIAGNOSTIC Recall History of colon polyps Health Maintenance Due Date Last Done Comments DTaP,Tdap,and Td Vaccines (2 - Td or Tdap) 04/15/2022 04/15/2012, 04/28/2006 COVID-19 Vaccine (3 - season) 2023 07/25/2020, 06/27/2020 COLONOSCOPY-EVERY 3 YRS [...] 07/31/2021 LUNG CANCER SCREENING - USE SMARTSET [id number] Completed 07/30/2022, 07/16/2021, 07/14/2018, Additional history exists Influenza Vaccine (FLU shot) Completed 03/04/2023, 02/21/2022, 02/19/2022, Additional history exists GARDASIL-HPV IMMUNIZATION SERIES Aged Out No longer eligible based on patient's age to complete this topic MENINGOCOCCAL (MENACTRA/MENVEO) Aged Out No longer eligible based on patient's age to complete this topic documented as of this encounter Medical Devices Implanted Type Area Outside Plant Field Engineer Device Identifier Shelf Expiration Date Model / Serial / Lot Mesh Supramesh 4x8 [id number] - [id number] Implanted:Qty: 1 on 05/27/2009 at [place] [facility] [place] N/A: Abdomen CR BARD : DAVOL 03/12/2011 [id number] / / [id number] documented as of this encounter Advance Directives [...] and were consensually agreed upon. Care Teams Mat Cutter Relationship Specialty Start Date End Date Tyrell Pineda DO [address] [place] [address] PCP - General Family Medicine 12/17/17 documented as of this encounter
--- OUTSIDE RECORDS SUMMARY | 2023-05-29 02:40 | External Medical Summary ---
Author Name Unknown Address Unknown Organization [id number][place] [place] [address] [facility] [address] Laboratory Report Ordering Provider Test Date Status KAMAR SMITH 03/04/2023 14:15:34 Final Observation Date Value Abnormality Reference (Units ) Status Triglyceride 03/04/2023 14:15:34 196 Above high normal <=174 (mg/dL) Final Triglyceride Reference Range s (mg/dL):
<150 Acceptable
150-174 Borderline high
175-499 High
>=500 Very high Cholesterol 03/04/2023 14:15:34 161 <200 (mg /dL) Final Total Cholesterol Reference Ranges (mg/dL):
<200 Desirable
200-239 Borderline high
>=240 High HDL 03/04/2023 14:15:34 37 Below low normal >39 (mg/dL) Final HDL Cholesterol Reference Ra nges (mg/dL):
>=60 High (Desirable)
<50 Low (Undesirable) For Females
<40 Low (Undesirable) For Males NON-HDL CHOLESTEROL 03/04/2023 14:15:34 124 <=159 (mg/dL) Final Non-HDL Cholesterol Referenc e Range (mg/dL):
<100 Target level for high risk ASCVD patient
<130 Optimal for general population
130-159 Near optimal for general population
160-189 Borderline High
190-219 High
>=220 Very High LDL, (calculated) 03/04/2023 14:15:34 85 <= 129 (mg/dL) Final LDL Cholesterol Reference Ra nges (mg/dL):
<70 Target level for high risk ASCVD patient
<100 Optimal for general population
100-129 Near optimal for general population
130-159 Borderline high
160-189 High
>=190 Very high Performing Location [facility] [place] [address] [facility] [address]
--- OUTSIDE RECORDS SUMMARY | 2023-05-29 02:40 | External Medical Summary ---
Author Name Unknown Address Unknown Organization [id number][place] [place] [address] [place] [address] Laboratory Report Ordering Provider Test Date Status KAMAR SMITH 03/04/2023 14:15:34 Final Observation Date Value Abnormality Reference (Units ) Status [place] [Moles/volume] in Blood 03/04/2023 14:15:34 <0.1 Below low normal 0.6-1.2 (mmol/L) Final Performing Location [facility] [place] [address] [place] [address]
--- OUTSIDE RECORDS SUMMARY | 2023-05-29 02:40 | External Medical Summary | Summary of Care ---
Author Name Unknown Organization [facility] Address [address] [facility] [address] Phone [phone] Care Team Providers Care Nut Sheller Name Role Phone Elsie Pinedar Mark Primary Care Provider Encounter Details Date Type Department Care Team (Late st Contact Info) Description 03/05/2023 Telephone Family Practice [facility] [address] [place] [address] Renae Costello CRNP [address] [place] [address] Allergies Active Allergy Reactions Criticality Noted Date Comments Bee Stings Hives Medium 03/08/2009 Niacin Itching High 03/26/2011 Penicillin V Potassium 08/26/2007 Pt told as a child he was allergic to it documented as of this encounter (statuses as of 03/06/2023) Medications Medication Sig Dispensed Refills Start Date [...] (Ipratropium-Albut rodri)Indications:C OPD, severity to be determined (HCC) USE 1 [...] as of this encounter (statuses as of 03/06/2023) Active Problems Problem Noted Date Diagnosed Date [...] as of this encounter (statuses as of 03/06/2023) Resolved Problems Problem Noted Date Diagnosed Date [...] 6 Asthma, allergic 08/26/2007 11/02/2009 Mixed dyslipidemia 08/26/2007200 9 Overview: Per Lipid Taxonomy. Obesity, BMI not known 08/26/200708/08 Overview: Per Obesity Taxonomy History of tobacco use 08/26/200711/14 documented as of this encounter (statuses as of 03/06/2023) Immunizations Name Administration Dates Next Due COVID-19 mRNA, LNP-s, No Pre serve, 2-Dose Series (Moderna) 07/25/2020,06/27/2020 HEP A - Hepatitis A (Adult > 18 yrs) 09/09/2002, 04/11/2002 Hepatitis B, 20+ yrs 09/09/2002,05/12/2002,04/11 PPD 09/08/2006 Pneumococcal Conjugate Vacci ne, 20-valent ([id number]) 11/14/2021 Pneumococcal Polysaccharide PPV23 (Pneumovax) 04/17/2003 SEASONAL [...] encounter Miscellaneous Notes * Telephone Encounter - Adriana Sultana LPN - 03/06/2023 4:15 PM EDT Patient is aware and verbalizes understanding. * Telephone Encounter - Leandra Sommer LPN - 03/06/2023 4:04 PM EDT Called pt and left a vm message to call the nurse line. See Trang's note below. * Telephone Encounter - SMITHA Bess - 03/05/2023 4:31 PM EDT Please notify patient Liver, kidney functions normal Thyroid normal A1C is improved and now at 6.0 meaning his prediabetes is better. His diet changes and weight loss are improving his health Brooks, MSN, SMITHA [facility] Medicine documented in this encounter Plan of Treatment Upcoming Encounters Date Type Department Care Team (Late st Contact Info) Description 05/27/2023 11:40 AM EST Office Visit Family Practice [facility] [address] [place] [address] Renae Costello CRNP [address] [place] [address] Scheduled Procedures Name Priority Associated Diagnoses Date/Ti [...] 07/31/2021 LUNG CANCER SCREENING - USE SMARTSET [id number] Completed 07/30/2022, 07/16/2021, 07/14/2018, Additional history exists Influenza Vaccine (FLU shot) Completed 03/04/2023, 02/21/2022, 03/10/2021, Additional history exists GARDASIL-HPV IMMUNIZATION SERIES Aged Out No longer eligible based on patient's age to complete this topic MENINGOCOCCAL (MENACTRA/MENVEO) Aged Out No longer eligible based on patient's age to complete this topic documented as of this encounter Medical Devices Implanted Type Area Manager Battery Device Identifier Shelf Expiration Date Model / Serial / Lot Mesh Supramesh 4x8 [id number] - [id number] Implanted:Qty: 1 on 05/27/[address] [facility] [place] N/A: Abdomen CR BARD : DAVOL 03/12/2011 [id number] / / [id number] documented as of this encounter Advance Directives [...] and were consensually agreed upon. Care Teams Nut Sheller Relationship Specialty Start Date End Date Rodo Pineda DO [address] [place] [address] PCP - General Family Medicine 12/17/17 documented as of this encounter
--- OUTSIDE RECORDS SUMMARY | 2023-05-29 02:40 | External Medical Summary ---
Author Name Unknown Address Unknown Organization K0G:LABORATORY [facility] [address] [place] [address] Laboratory Report Ordering Provider Test Date Status KAMAR SMITH 03/04/2023 14:15:34 Final Observation Date Value Abnormality Reference (Units ) Status WBC, Total 03/04/2023 14:15:34 9.33 4.00-10.8 0 (K/uL) Final RBC 03/04/2023 14:15:34 5.64 4.50-5.25 (M/uL) Final Hemoglobin 03/04/2023 14:15:34 15.8 14.0-16.8 (g/dL) Final HCT 03/04/2023 14:15:34 48.1 40.0-48.4 (%) Final MCV 03/04/2023 14:15:34 85.3 82.0-99.5 (fL) Final MCH 03/04/2023 14:15:34 28.0 27.0-34.0 (pg) Final MCHC 03/04/2023 14:15:34 32.8 32.0-36.0 (g/dL) Final RDW 03/04/2023 14:15:34 14.8 11.5-15.5 (%) Final Platelets 03/04/2023 14:15:34 337 140-400 (K /uL) Final MPV 03/04/2023 14:15:34 8.8 6.6-11.1 ( fL) Final Performing Location [facility]ORY [facility] [place] [address] - [address] [place] [address]
--- OUTSIDE RECORDS SUMMARY | 2023-05-29 02:40 | External Medical Summary ---
Author Name Unknown Address Unknown Organization K01:LAB[facility]ATORY [facility] - [address] [place] [address] Laboratory Report Ordering Provider Test Date Status KAMAR SMITH 03/04/2023 14:15:34 Final Observation Date Value Abnormality Reference (Units ) Status T4, Free 03/04/2023 14:15:34 1.5 0.9-1.7 (n g/dL) Final Performing Location LABORATORY [facility] - [address] [place] [address]
--- OUTSIDE RECORDS SUMMARY | 2023-05-29 02:41 | External Medical Summary | Summary of Care ---
Author Name Unknown Organization [facility] Address [address] [place] [address] Phone [phone] Care Team Providers Care Nursery Manager Name Role Phone Rodo Pineda Primary Care Provider Reason for Visit * Reason Comments Medical Nutrition Therapy Follow Up Encounter Details Date Type Department Care Team Description 02/28/2023 Telemedicine Nutrition, [facility] [address] [place] [address] Barbara Mukherjee, ELIECER [address] [place] [address] Prediabetes*; Body mass index (BMI) of 50.0 to 59.9 in adult (HCC); Dyslipidemia, goal LDL below 70; HTN, goal below 130/80; Schizoaffective disorder, chronic condition (HCC) Allergies Active Allergy Reactions Severity Noted Date Comments Bee Stings Hives Medium 03/08/2009 Niacin Itching High 03/26/2011 Penicillin V Potassium 08/26/2007 Pt told as a child he was allergic to it documented as of this encounter (statuses as of 02/28/2023) Medications Medication Sig Dispensed Refills Start Date [...] at bedtime. 180 Tablet 3 11/19/2022 Active Docusate Sodium 100 MG Oral Capsule (Colace) Take 1 Capsule by mouth in the morning and 1 Capsule before bedtime. 180 Capsule 3 12/03/2022 03/03/2023 Active Levothyroxine Sodium 137 MCG Oral Tablet Take 1 Tablet by mouth in the morning. (at least 30 min prior to breakfast or other meds). 90 Tablet 3 12/03/2022 03/03/2023 Active Carvedilol 12.5 MG Oral Tablet (Coreg)Indication s:HOCM (hypertrophic obstructive cardiomyopathy) (HCC) TAKE 1 TABLET TWICE A DAY 180 Tablet 1 02/08/2023 Active documented as of this encounter (statuses as of 02/28/2023) Active Problems Problem Noted Date Right kidney mass 08/13/2022 Moderate persistent asthma without compl ication 08/13/2022 Chronic respiratory failure with hypoxia , on home oxygen therapy 11/14/2021 MICHELLE (dyspnea on exertion) 09/27/2021 Grade I diastolic dysfunction 09/27/2021 Body mass index (BMI) of 50.0 to 59.9 in adult 08/20/2021 Overview: Per Obesity protocol - Decreased visual acuity 12/17/2017 External hemorrhoid 12/17/2017 Prediabetes 07/22/2017 Overview: Per Prediabetes protocol #1 Chronic pain of left knee 07/07/2017 Alcohol dependence in remission 08/22/19 17 Acquired hypothyroidism 11/07/2015 Heart murmur 05/04/2014 HOCM (hypertrophic obstructive cardiomyo kuldip) 10/14/2012 HTN, goal below 130/80 06/06/2011 Injury of ulnar nerve 03/26/2011 Carpal tunnel syndrome 02/28/2011 Incisional hernia 05/25/2009 DYSLIPIDEMIA, GOAL LDL BELOW 70 04/25/20 09 Overview: Per Lipid Taxonomy. COPD, group B, by GOLD 2017 classificati on 03/08/2009 Edema 03/08/2009 ADVANCE DIRECTIVE INFORMATION 11/09/2007 Overview: Yes, Patient instructed to provide copy of advance directive for provider to review and to be scanned into Electronic Medical Record Constipation 10/19/2007 Schizoaffective disorder, chronic condit ion 08/26/2007 Unilateral inguinal hernia 08/26/2007 Anxiety state 08/26/2007 Knee pain, left 08/26/2007 documented as of this encounter (statuses as of 02/28/2023) Resolved Problems Problem Noted Date Resolved Date COPD, mild 02/19/2017 05/14/2022 Body mass index (BMI) of 45.0 to 49.9 in adult 1 08/23/2021 Overview: Per Obesity protocol #1 Body mass index (BMI) of 40.0-44.9 in adult 07/1002/13/2017 Overview: Per Obesity protocol #1 Asthma with severity to be determined 11/02/2009 08/13/2022 Overview: Per Asthma Taxonomy ICD-10 update of inactive term Asthma, mild persistent 11/02/2009 07/06/19 16 Overview: Per Provider Protocol. Obesity, morbid (more than 1 00 lbs over ideal weight or BMI > 40) 08/08/2009 07/26/2010 Overview: Per Obesity Taxonomy ICD-10 update of inactive term ASCVD (arteriosclerotic cardiovascular disease) 2009 05/22/2011 Alcohol abuse, unspecified 01/20/200808/21 Stable angina 10/08/2007 05/22/2011 HTN, goal below 140/90 08/26/2007 1 HYPOTHYROIDISM NOS 08/26/2007 11/07/2015 Asthma, allergic 08/26/2007 11/02/2009 Mixed dyslipidemia 08/26/2007 04/25/2009 Overview: Per Lipid Taxonomy. Obesity, BMI not known 08/26/2007 0 Overview: Per Obesity Taxonomy History of tobacco use 08/26/2007 2 documented as of this encounter (statuses as of 02/28/2023) Immunizations Name Administration Dates Next Due COVID-19 mRNA, LNP-s, No Pre serve, 2-Dose Series (Moderna) 07/25/2020,06/27/2020 HEP A - Hepatitis A (Adult > 18 yrs) 09/09/2002, 04/11/2002 Hepatitis B, 20+ yrs 09/09/2002,05/12/2002,04/11 PPD 09/08/2006 Pneumococcal Conjugate Vacci ne, 20-valent ([id number]) 11/14/2021 Pneumococcal Polysaccharide PPV23 (Pneumovax) 04/17/2003 SEASONAL INFLUENZA, PF, 6 M & Above, IM , (FLULAVAL or FLUZONE) 03/10/2021,02/19/2017 Seasonal Influenza, Quadrivalent, ID 02/21/2022 Seasonal Influenza, [...] -sober for "85 days" as of 03/26/10 Food Insecurity Answer Date Recorded Within the past 12 months, y ou worried that your food would run out before you got money to buy more. Never true 01/06/2019 Within the past 12 months, t he food you bought just didn't last and you didn't have money to get more. Never true 01/06/2019 Sex Assigned at Date Recorded Not on file Job Start Date Occupation Industry Not on file Not on file Not on file documented as of this encounter Last Filed Vital Signs Vital Sign Reading Time Taken Comments Blood Pressure - - Pulse - - Temperature - - Respiratory Rate - - Oxygen Saturation - - Inhaled Oxygen Concentration - - Weight 152 kg (335 lb) 02/28/2023 1:00 PM EDT Height 173.9 cm (5' 8.47") 02/28/2023 1:00 PM ED T Body Mass Index 50.25 02/28/2023 1:00 PM EDT documented in this encounter Patient Instructions * Patient Instructions* Barbara Mukherjee RDN - 02/28/2023 1:24 PM EDT Patient will increase activity level by walking at least 3 times a week. Do 20 minutes sessions if able or do 2 10 minute sessions daily. Patient will monitor serving sizes of high-CHO foods to no more than 1/2 cup portions. Patient will include a low-carb vegetable at least 1 serving a day most days of the week. documented in this encounter Progress Notes * Barbara Mukherjee RDN - 02/28/2023 12:59 PM EDT NUTRITION FOLLOW-UP NOTE - OUTPATIENT [facility] Name: Will Bearden Location: [facility] Date: 02/28/2023 Time: 12:59 PM Patient was identified by name and date. After connecting to the patient via telephone, the patient was identified by name and date of . Patient was then informed that this was a telephone call only visit. The patient agreed to participate. Visit Disposition: Routine follow-up Total call duration was 28 minutes. Reason for Nutrition Follow-up: Prediabetes NUTRITION ASSESSMENT: Client History Patient is a 62 year old male being seen for above issue. Support System: sister, cousin, friends Barriers to Learning: mental health-schizophrenia. States he doesn't function well in public places. Special Education Needs: None Physical Activity: walking at least 2 times a week Food/Nutrition-Related History Describes typical diet history/24 hr recall Breakfast: 1 egg and 1 egg white or 2 egg whites or oatmeal with flax seed and cinnamon sugar, water with medicine, coffee, whole milk, tea Snacks: none Lunch: 1 PM spoonfuls of fruit, monegasque fries, pork or chicken breast, water or milk Snacks: sometimes handful of Chex mix Dinner: 5-6:30 PM chicken breast or pork loin, northern beans or kidney beans or Mckeon[employer] baked beans, water or milk Snacks: occasionally Chex mix Drinks: decaf tea-one cup black and one cup green, water, coffee-2 daily in AM, milk with most meals, water-64 ounces Restaurant meals: rarely per pt, Gene Gamez when sister visits Alcohol: decreased per pt report Tobacco Use: chews snuff daily, quit cigars recently Drug Use: medical marijuana 2 servings of vegetables daily, apple or sugar-free fruit daily per pt report Diet Recall/Food Logs Indicate: AREAS FOR IMPROVEMENT: High calorie, high fat and/or high sugar selections Inconsistent carbohydrate intake Inadequate fiber intake Inadequate fruit and vegetable intake POSITIVE: Uses calorie free beverages Adequate fluid intake Food and Nutrient Intake and other pertinent information: Patient reports working on portion sizes of his foods and experiencing less munchies lately. States he has not been walking a lot. Notes his weight has decreased and he feels better. Notes an improvement in his anxiety and mood since using medical marijuana. He continues to be assessed by nursing staff from [facility]. Medications Changes/Updates: medical marijuana per pt report Nutrition-Focused Physical Findings Deferred due to telephonic visit Anthropometric Measurements Current Weight: Wt Readings from Last 1 Encounters: 02/28/23 (!) 152 kg (335 lb) Wt Readings from Last 4 Encounters: 02/28/23 (!) 152 kg (335 lb) 12/03/22 (!) 155.2 kg (342 lb 2 oz) 11/22/22 (!) 157.6 kg (347 lb 7.1 oz) 11/19/22 (!) 157.6 kg (347 lb 8 oz) Weight Change: decreased by 12.5 pounds in the past 3 months per pt report BMI Readings from Last 1 Encounters: 02/28/23 50.25 kg/m Biochemical Data, Medical Tests, and Procedures No current labs since last visit. Patient states he will be having labs checked on 03/04. Previous Nutrition Diagnosis: Altered nutrition-related laboratory values related to prediabetes as evidenced by elevated Hgb [id number]. Overweight/obesity related to Large portions, High calorie, high fat and/or high sugar selections, Inconsistent carbohydrate intake as evidenced by Reported diet and/or activity recall, Body mass index is 52.11 kg/m. Progress towards goals: Patient will continue walking at least 5 days a week. Go ahead and separate sessions into 2-15 minute sessions daily or 3-10 minute sessions daily. NOT MET Patient will follow ADA Plate model for eating at least 1 meal a day at least 5 times a week. Partially MET Patient will monitor serving sizes of high-CHO foods to no more than 1/2 cup portions. partially MET Patient will eat consistent meals throughout the day, at least 3 meals most days of the week. MET Patient will review nutrition labels for total grams of carb's and serving size. MET CURRENT NUTRITION DIAGNOSIS Overweight/obesity related to High calorie, high fat and/or high sugar selections, Inconsistent carbohydrate intake, Inadequate fiber intake, Inadequate fruit and vegetable intake as evidenced by Reported diet and/or activity recall, Body mass index is 50.25 kg/m. NUTRITION INTERVENTION: NUTRITION EDUCATION Initial/brief nutrition education NUTRITION COUNSELING Strategies Nutrition Prescription: Diet: Consistent Carbohydrate Weight Management Daily Calorie Needs: 4730-7976 Kcals Daily Protein Needs: 75-80 Grams protein Current Goals: Patient will increase activity level by walking at least 3 times a week. Do 20 minute sessions if able or do 2- 10 minute sessions daily. Patient will monitor serving sizes of high-CHO foods to no more than 1/2 cup portions. Patient will include a low-carb vegetable at least 1 serving a day most days of the week. Dietitian Action: Encouraged patient to do short sessions of activity daily as able-states he feelshe can do 20 minute sessions daily. Patient asking questions about certain foods. Reminded him of total CHO content affecting the glucose levels; encouraged him to limit portion sizes of beans and fruit and pasta and potatoes to 1/2 cup per meal. Encouraged him to decrease portion size of cinnamonsugar on oatmeal, as he currently uses a few tablespoons with each serving. Encouraged him to include more low-CHO vegetables in meals. When asked about nutrition labels, pt states he has assistance from nursing staff with reviewing these. Recommendations to Ordering Provider: Continue current plan of nutrition care. NUTRITION MONITORING AND EVALUATION: The following will be monitored and evaluated at the next visit: Monitor weight. Monitor goals and progress. Monitor activity regimen. Plan: Patient scheduled to return in 6 months; encouraged pt to contact me via phone if any questions or concerns arise. Of note: pt does not have My G access. 30 minutes Medical Nutrition Therapy Time In: 1300 (02/28/23 1314) Time Out: 1329 (02/28/23 1504) 15 min (8-22 min) 30 min (23-37 min) 45 min (38-52 min) 60 min (53-67 min) 75 min (68-82 min) 90 min (83-97 min) 105 min (98-113 min) Barbara Mukherjee RDN [facility] documented in this encounter Plan of Treatment Upcoming Encounters Date Type Specialty Care Team Description 03/04/2023 Office Visit Family Medicine Renae Costello CRNP [address] [place] [address] 05/27/2023 Office Visit Family Medicine Renae Costello CRNP [address] [place] [phone] Scheduled Procedures Name Priority Associated Diagnoses Date/Ti me COLONOSCOPY FLEXIBLE PROXIMAL DIAGNOSTIC Recall History of colon polyps Health Maintenance Due Date Last Done Comments DTaP,Tdap,and Td Vaccines (2 - Td or Tdap) 04/15/2022 04/15/2012, 04/28/2006 COVID-19 Vaccine (3 - 2022- season) 2023 07/25/2020, 06/27/2020 Influenza Vaccine (FLU shot) (#1) 2023 02/21/2022, 03/10/2021, 02/19/2017, Additional history exists COLONOSCOPY-EVERY 3 YRS AGES 18-100 09/09/2023 09/08/2020, 08/29/2015, 08/29/2015, Additional history exists Depression Screening 11/20/2023 11/19/2022 GFR 11/20/2023 11/19/2022, 07/2022, 11/14/2021, Additional history exists HbA1c 11/20/2023 11/19/2022, 0 07/2022, 11/14/2021, Additional history exists O2 ASSESSMENT [...] 07/31/2021 LUNG CANCER SCREENING - USE SMARTSET 82800 Completed 07/30/2022, 07/16/2021, 07/14/2018, Additional history exists GARDASIL-HPV IMMUNIZATION SERIES Aged Out No longer eligible based on patient's age to complete this topic MENINGOCOCCAL (MENACTRA/MENVEO) Aged Out No longer eligible based on patient's age to complete this topic documented as of this encounter Medical Devices Implanted Type Area Coagulant Dipper Device Identifier Shelf Expiration Date Model / Serial / Lot Mesh Supramesh 4x8 [id number] - [id number] Implanted:Qty: 1 on 05/27/2009 [place] [facility] [place]: Abdomen CR BARD : DAVOL 03/12/2011 [id number] / / [id number] documented as of this encounter Visit Diagnoses Diagnosis Prediabetes- Primary Other abnormal glucose Body mass index (BMI) of 50.0 to 59.9 in adult (HCC) Dyslipidemia, goal LDL below 70 Other and unspecified hyperlipidemia HTN, goal below 130/80 Unspecified essential hypertension Schizoaffective disorder, chronic condition (HCC) Schizoaffective disorder, chronic condition documented in this encounter Advance Directives Latest [...] and were consensually agreed upon. Care Teams Nursery Manager Relationship Specialty Start Date End Date Rodo Pineda DO [address] [place] [phone] PCP - General Family Medicine 12/17/17 documented as of this encounter
--- OUTSIDE RECORDS SUMMARY | 2023-05-29 02:41 | External Medical Summary | Summary of Care ---
Author Name Unknown Organization [facility] Address [address] [address] Phone [phone] Care Team Providers Care Outpatient Clerk Name Role Phone Tyrell Pineda DO Primary Care Provider Reason for Visit * Reason Comments eRx-Medication Refill Encounter Details Date Type Department Care Team Description 02/08/2023 Refill Family Practice [facility] [address] [place] [address] Tyrell Pineda DO [address] [place] [address] HOCM (hypertrophic obstructive cardiomyopathy) ([facility]) Allergies Active Allergy Reactions Severity Noted Date Comments Bee Stings Hives Medium 03/08/2009 Niacin Itching High 03/26/2011 Penicillin V Potassium 08/26/2007 Pt told as a child he was allergic to it documented as of this encounter (statuses as of 02/08/2023) Medications Medication Sig Dispensed Refills Start Date End Date Status BENZTROPINE MESYLATE 1 MG PO TABSIndications: Schizoaffective disorder, chronic condition ([facility]) 1 tab daily 30 5 09/02/2007 Active LOXAPINE SUCCINATE 50 MG PO CAPSIndications: Schizoaffective disorder, chronic condition ([facility]) 1 cap at bedtime 60 Cap 2 [...] (Ipratropium-Alb uterol)Indicatio ns:COPD, severity to be determined (HCC) USE 1 INHALATION ORALLY 4 TIMES DAILY NEEDED FOR COUGH OR WHEEZING 12 g 3 04/30/2022 Active Lisinopril 40 MG Oral TabletIndication s:HTN, [...] Capsule before bedtime. 180 Capsule 3 12/03/2022 03/03/20 Active Levothyroxine Sodium 137 MCG Oral Tablet Take 1 Tablet by mouth in the morning. (at least 30 min prior to breakfast or other meds). 90 Tablet 3 12/03/2022 03/03/20 Active Carvedilol 12.5 MG Oral Tablet (Coreg)Indicatio ns:HOCM (hypertrophic obstructive cardiomyopathy) (HCC) TAKE 1 TABLET TWICE A DAY 180 Tablet 1 02/08/2023 Active Carvedilol 12.5 MG Oral Tablet (Coreg)Indicatio ns:HOCM (hypertrophic obstructive cardiomyopathy) (HCC) TAKE 1 TABLET TWICE A DAY 180 Tablet 0 11/26/2022 02/09/20 Discontinued documented as of this encounter (statuses as of 02/08/2023) Active Problems Problem Noted Date Right kidney [...] as of this encounter (statuses as of 02/08/2023) Resolved Problems Problem Noted Date Resolved Date COPD, mild 02/19/2017 05/14/2022 Body mass index (BMI) of 45.0 to 49.9 in adult 1 08/23/2021 Overview: Per Obesity protocol #1 Body mass index (BMI) of 40.0-44.9 in adult /11/201002/13/2017 Overview: Per Obesity protocol #1 Asthma with [...] as of this encounter (statuses as of 02/08/2023) Immunizations Name Administration Dates Next Due COVID-19 mRNA, LNP-s, No Pre serve, 2-Dose Series (Moderna) 07/25/2020,06/27/2020 HEP A - Hepatitis A (Adult > 18 yrs) 09/09/2002, 04/11/2002 Hepatitis B, 20+ yrs 09/09/2002,05/12/2002,04/11 PPD 09/08/2006 Pneumococcal Conjugate Vacci ne, 20-valent ([id number]) 11/14/2021 Pneumococcal Polysaccharide PPV23 (Pneumovax) 04/17/2003 SEASONAL [...] encounter Miscellaneous Notes * Telephone Encounter - Zoltan Zamudio [facility] - 02/08/2023 1:42 PM EDTSigned Prescriptions: Disp Refills Carvedilol 12.5 MG Oral Tablet (Coreg) 180 Ta*1 Sig: TAKE 1 TABLET TWICE A DAYAuthorizing Provider: TYRELL PINEDA User: ZOLTAN ZAMUDIO documented in this encounter Plan of Treatment Upcoming Encounters Date Type Specialty Care Team Description 02/28/2023 Telemedicine Nutrition Services Barbara Mukherjee, ELIECER [address] [place] [phone] 03/04/2023 Office Visit Family Medicine Renae Costello CRNP [address] [place] [address] 05/27/2023 Office Visit Family Renae Winters CRNP [address] [place] [address] Scheduled Procedures Name Priority Associated Diagnoses Date/Ti me COLONOSCOPY FLEXIBLE PROXIMAL DIAGNOSTIC Recall History of colon polyps Health Maintenance Due Date Last Done Comments COVID-19 Vaccine (3 - Moderna series) 09/19/2020 07/25/2020, 06/27/2020 DTaP,Tdap,and Td Vaccines (2 - Td or Tdap) 04/15/2022 04/15/2012, 04/28/2006 Influenza Vaccine (FLU shot) (#1) 2023 02/21/2022, [...] 07/31/2021 LUNG CANCER SCREENING - USE SMARTSET [id number] Completed 07/30/2022, 07/16/2021, 07/14/2018, Additional history exists GARDASIL-HPV IMMUNIZATION SERIES Aged Out No longer eligible based on patient's age to complete this topic MENINGOCOCCAL (MENACTRA/MENVEO) Aged Out No longer eligible based on patient's age to complete this topic documented as of this encounter Medical Devices Implanted Type Area Qlikview Developer Device Identifier Shelf Expiration Date Model / Serial / Lot Mesh Supramesh 4x8 [id number] - [id number] Implanted:Qty: 1 on 05/27/2009 [place] [facility] [place]A: Abdomen CR BARD : DAVOL 03/12/2011 [id number] / / [id number] documented as of this encounter Visit Diagnoses Diagnosis HOCM (hypertrophic obstructive cardiomyopathy) (HCC) Hypertrophic obstructive [...] and were consensually agreed upon. Care Teams Outpatient Clerk Relationship Specialty Start Date End Date Tyrell Pineda DO [address] [place] [address] PCP - General Family Medicine 12/17/17 documented as of this encounter
--- OUTSIDE RECORDS SUMMARY | 2023-05-29 02:41 | External Medical Summary ---
Author Name Unknown Address Unknown Organization K01:LABORATORY [facility] [place] - [address] [place] [address] Laboratory Report Ordering Provider Test Date Status LASHA CERONAlverto 03/04/2023 14:15:34 Final Observation Date Value Abnormality Reference (Units ) Status TSH 03/04/2023 14:15:34 1.87 0.27-4.20 (uIU/mL) Final Performing Location LABORATORY [facility] - [address] [place] [address]
--- OUTSIDE RECORDS SUMMARY | 2023-05-29 02:41 | External Medical Summary | Summary of Care ---
Author Name Unknown Organization [facility] Address [address] [facility] [place] [address] Phone [phone] Care Team Providers Care Finance Director Name Role Phone Rodo Pineda Primary Care Provider Reason for Visit * Reason Comments Medical Nutrition Therapy Follow Up Encounter Details Date Type Department Care Team Description 02/28/2023 Telemedicine Nutrition, [facility] [address] [place] [address] Barbara Mukherjee, ELIECER [address] [place] [address] Prediabetes*; Body mass index (BMI) of 50.0 [...] PPD 09/08/2006 Pneumococcal Conjugate Vacci ne, 20-valent ([id number]) 11/14/2021 Pneumococcal Polysaccharide PPV23 (Pneumovax) 04/17/2003 SEASONAL [...] PM EDT NUTRITION FOLLOW-UP NOTE - OUTPATIENT [facility] Name: Will Bearden Location: [facility] Date: 02/28/2023 Time: 12:59 PM Patient [...] none Lunch: 1 PM spoonfuls of fruit, bulgarian fries, pork or chicken breast, water or [...] to be assessed by nursing staff from [facility]. Medications Changes/Updates: medical marijuana per pt [...] to prediabetes as evidenced by elevated Hgb [id number]. Overweight/obesity related to Large portions, High calorie, [...] Consistent Carbohydrate Weight Management Daily Calorie Needs: 8654-4746 Kcals Daily Protein Needs: 75-80 Grams protein [...] Encouraged him to decrease portion size of cinnamon sugar on oatmeal, as he currently uses a [...] (98-113 min) Barbara Mukherjee RDN [facility] documented in this encounter Plan of Treatment Upcoming Encounters Date Type Specialty Care Team Description 03/04/2023 Office Visit Family Medicine Renae Costello CRNP [address] [phone] 05/27/2023 Office Visit Family Medicine Renae Costello CRNP [address] [place] [address] Scheduled Procedures Name Priority Associated Diagnoses Date/Ti [...] 07/31/2021 LUNG CANCER SCREENING - USE SMARTSET [id number] Completed 07/30/2022, 07/16/2021, 07/14/2018, Additional history exists GARDASIL-HPV IMMUNIZATION SERIES Aged Out No longer eligible based on patient's age to complete this topic MENINGOCOCCAL (MENACTRA/MENVEO) Aged Out No longer eligible based on patient's age to complete this topic documented as of this encounter Medical Devices Implanted Type Area Cabinet Mounter Device Identifier Shelf Expiration Date Model / Serial / Lot Mesh Supramesh 4x8 [id number] - [id number] Implanted:Q[place] 1 [place] 05[place]27[place]2009 [place] [facility] [place] Abdomen CR BARD : DAVOL 03/12/2011 [id number] / / [id number] documented as of this encounter Visit Diagnoses [...] and were consensually agreed upon. Care Teams Finance Director Relationship Specialty Start Date End Date Rodo Pineda DO [address] [place] [address] PCP - General Family Medicine 12/17/17 documented as of this encounter
--- OUTSIDE RECORDS SUMMARY | 2023-05-29 02:41 | External Medical Summary | Summary of Care ---
Author Name Unknown Organization [facility] Address [address] [address] Phone [phone] Care Team Providers Care Medical Technologist Chief Name Role Phone Rodo Pineda DO Primary Care Provider Reason for Visit * Reason Onset Date Comments Health Maintenance 02/24/2023 Encounter Details Date Type Department Care Team Description 02/24/2023 Telephone Family Practice [facility] [address] [place] [address] Rodo Pineda DO [address] [place] [address] Health Maintenance Allergies Active Allergy Reactions Severity Noted Date Comments Bee Stings Hives Medium 03/08/2009 Niacin Itching High 03/26/2011 Penicillin V Potassium 08/26/2007 Pt told as a child he was allergic to it documented as of this encounter (statuses as of 02/24/2023) Medications Medication Sig Dispensed Refills Start Date [...] as of this encounter (statuses as of 02/24/2023) Active Problems Problem Noted Date Right kidney [...] as of this encounter (statuses as of 02/24/2023) Resolved Problems Problem Noted Date Resolved Date [...] as of this encounter (statuses as of 02/24/2023) Immunizations Name Administration Dates Next Due COVID-19 mRNA, LNP-s, No Pre serve, 2-Dose Series (Moderna) 07/25/2020,06/27/2020 HEP A - Hepatitis A (Adult > 18 yrs) 09/09/2002, 04/11/2002 Hepatitis B, 20+ yrs 09/09/2002,05/12/2002,04/11 PPD 09/08/2006 Pneumococcal Conjugate Vacci ne, 20-valent ([id number]) 11/14/2021 Pneumococcal Polysaccharide PPV23 (Pneumovax) 04/17/2003 SEASONAL [...] encounter Miscellaneous Notes * Telephone Encounter - Juanita Pritchett LPN - 02/24/2023 8:50 AM EDT Care Gaps Comprehensive Care Outreach Last Office/Telemedicine Visit: 12/03/2022 (in office), 06/06/2020 (telemedicine) Next Office Visit: 03/04/2023 Hemoglobin AIC Results: Lab Results Component Value Date/Time HEMOGLOBIN A1C - [facility] 6.1 (H) 11/19/2022 12:18 PM HEMOGLOBIN A1C - [facility] 6.4 (H) 05/14/2022 11:59 AM HEMOGLOBIN A1C - [facility] 6.1 (H) 11/14/2021 12:55 PM HEMOGLOBIN A1C - [facility] 5.7 (H) 01/06/2019 10:54 AM HEMOGLOBIN A1C - [facility] 5.8 (H) 06/24/2018 10:39 AM HEMOGLOBIN A1C - [facility] 5.7 (H) 12/17/2017 11:05 AM Reviewed Health Maintenance below: Health Maintenance Topic Date Due DTaP,Tdap,and Td Vaccines (2 - Td or Tdap) 04/15/2022 Influenza Vaccine (FLU shot) (1) 01/10/2023 COVID-19 Vaccine (3 - season) 2023 Care Gap Outreach Action Taken: Outreach not indicated documented in this encounter Plan of Treatment Upcoming Encounters Date Type Specialty Care Team Description 02/28/2023 Telemedicine Nutrition Services Barbara Mukherjee RDN [address] [place] [address] 03/04/2023 Office Visit Family Renae Winters CRNP [address] [place] [address] 05/27/2023 Office Visit Family Renae Winters CRNP [address] [place] [address] Scheduled Procedures Name Priority Associated Diagnoses Date/Ti me COLONOSCOPY FLEXIBLE PROXIMAL DIAGNOSTIC Recall History of colon polyps Health Maintenance Due Date Last Done Comments DTaP,Tdap,and Td Vaccines (2 - Td or Tdap) 04/15/2022 04/15/2012, 04/28/2006 COVID-19 Vaccine (3 - 2023-24 season) 2023 07/25/2020, 06/27/2020 Influenza Vaccine (FLU [...] 07/31/2021 LUNG CANCER SCREENING - USE SMARTSET [id number] Completed 07/30/2022, 07/16/2021, 07/14/2018, Additional history exists GARDASIL-HPV IMMUNIZATION SERIES Aged Out No longer eligible based on patient's age to complete this topic MENINGOCOCCAL (MENACTRA/MENVEO) Aged Out No longer eligible based on patient's age to complete this topic documented as of this encounter Medical Devices Implanted Type Area Student Loan Counselor Device Identifier Shelf Expiration Date Model / Serial / Lot Mesh Farhanaesh 4x8 [id number] - [id number] Implanted:Qty: 1 on 05/27/2009 at [place] [facility] [place] N/A: Abdomen CR BARD : DAVOL 03/12/2011 [id number] / / [id number] documented as of this encounter Advance Directives [...] and were consensually agreed upon. Care Teams Medical Technologist Chief Relationship Specialty Start Date End Date Rodo Pineda DO [address] [place] [address] PCP - General Family Medicine 12/17/17 documented as of this encounter
--- OUTSIDE RECORDS SUMMARY | 2023-05-29 02:41 | External Medical Summary ---
Author Name Unknown Address Unknown Organization [id number]:[facility] - [address] [place] [address] Laboratory Report Ordering Provider Test Date Status KAMAR SMITH 03/04/2023 14:15:34 Final Observation Date Value Abnormality Reference (Units ) Status BUN 03/04/2023 14:15:34 10 6-20 (mg/dL) Final Creatinine 03/04/2023 14:15:34 0.9 0.6-1.2 (mg/dL) Final Glomerular filtration rate/1.73 sq M.predicted [Volume Rate/Area] in Serum, Plasma or Blood by Creatinine-based formula (CKD-EPI) 03/04/2023 14:15:34 >90 >=60 (mL/min) Final eGFR is calculated based on the CKD-EPI 2020 equation SODIUM 03/04/2023 14:15:34 137 135-146 (m mol/L) Final Potassium 03/04/2023 14:15:34 4.7 3.5-5.1 (m mol/L) Final Cl 03/04/2023 14:15:34 95 Below low normal 98- 107 (mmol/L) Final CO2 03/04/2023 14:15:34 28 22-32 (mmo l/L) Final Anion gap 03/04/2023 14:15:34 14 7-15 (mmol /L) Final Glucose 03/04/2023 14:15:34 103 70-120 (mg /dL) Final Albumin 03/04/2023 14:15:34 4.5 3.8-5.0 (g /dL) Final AST (Aspartate aminotransferase) 03/04/2023 14:15:34 12 10-50 (U/L) Fin al Alk Phos 03/04/2023 14:15:34 110 35-130 (U/ L) Final Bilirubin, Total 03/04/2023 14:15:34 0.5 <=1 .2 (mg/dL) Final Calcium 03/04/2023 14:15:34 9.8 8.4-10.2 ( mg/dL) Final Protein 03/04/2023 14:15:34 7.0 6.0-8.3 (g /dL) Final ALT (Alanine aminotransferase) 03/04/2023 14:15:34 16 10-50 (U/L) Akin corona Performing Location [facility] [place] [address]
--- OUTSIDE RECORDS SUMMARY | 2023-05-29 02:41 | External Medical Summary | Summary of Care ---
Author Name Unknown Organization [facility] Address [address] [place] [address] Phone [phone] Care Team Providers Care Life Cycle Assessment Analyst Name Role Phone Rodo Pineda Primary Care Provider Encounter Details Date Type Department Care Team Description 01/21/2023 Orders Only Laboratory, [facility] [address] [place] [phone] [address] Guardado PA-C [address] [place] [address] Schizoaffective disorder, bipolar type ([facility])* Allergies Active Allergy Reactions Severity Noted Date Comments Bee Stings Hives Medium 03/08/2009 Niacin Itching High 03/26/2011 Penicillin V Potassium 08/26/2007 Pt told as a child he was allergic to it documented as of this encounter (statuses as of 01/21/2023) Medications Medication Sig Dispensed Refills Start Date [...] TWICE A DAY 180 Tablet 0 11/26/2022 Active Docusate Sodium 100 MG Oral Capsule (Colace) Take 1 Capsule by mouth in the morning and 1 Capsule before bedtime. 180 Capsule 3 12/03/2022 03/03/2023 Active Levothyroxine Sodium 137 MCG Oral Tablet Take 1 Tablet by mouth in the morning. (at least 30 min prior to breakfast or other meds). 90 Tablet 3 12/03/2022 03/03/2023 Active documented as of this encounter (statuses as of 01/21/2023) Active Problems Problem Noted Date Right kidney [...] as of this encounter (statuses as of 01/21/2023) Resolved Problems Problem Noted Date Resolved Date COPD, mild 02/19/2017 05/14/2022 Body mass index (BMI) of 45.0 to 49.9 in adult 1 08/23/2021 Overview: Per Obesity protocol #1 Body mass index (BMI) of 40.0-44.9 in adult 03/11/201002/13/2017 Overview: Per Obesity protocol #1 Asthma with [...] as of this encounter (statuses as of 01/21/2023) Immunizations Name Administration Dates Next Due COVID-19 mRNA, LNP-s, No Pre serve, 2-Dose Series (Moderna) 07/25/2020,06/27/2020 HEP A - Hepatitis A (Adult > 18 yrs) 09/09/2002, 04/11/2002 Hepatitis B, 20+ yrs 09/09/2002,05/12/2002,04/11 PPD 09/08/2006 Pneumococcal Conjugate Vacci ne, 20-valent ([id number]) 11/14/2021 Pneumococcal Polysaccharide PPV23 (Pneumovax) 04/17/2003 Seasonal Influenza, PF, 6 mo ns & Above, IM , (Flulaval) 03/10/2021,02/19/2017 Seasonal Influenza, Quadrivalent, ID 02/21/2022 Seasonal [...] Description 02/28/2023 Telemedicine Nutrition Services Barbara Mukherjee, RDN [address] [place] [address] 03/04/2023 Office Visit Family Medicine Renae Costello CRNP [address] [place] [address] 05/27/2023 Office Visit Family Medicine Renae Costello CRNP [address] [place] [address] Scheduled Orders Name Type Priority Associated Diagnoses Orde r Schedule CBC WITH WBC DIFFERENTIAL Lab Routine Schizoaffective disorder, bipolar type (HCC) Expected: 01/21/2023, Expires: 01/22/2024 COMPREHENSIVE METABOLIC PANEL Lab Routine Schizoaffective disorder, bipolar type (HCC) Expected: 01/21/2023, Expires: 01/22/2024 HEMOGLOBIN A1C Lab Routine Schizoaffective disorder, bipolar type (HCC) Expected: 01/21/2023, Expires: 01/22/2024 LIPID PANEL WITH DIRECT LDL IF TG IS HIGH Lab Routine Schizoaffective disorder, bipolar type (HCC) Expected: 01/21/2023, Expires: 01/22/2024 LITHIUM LEVEL Lab Routine Schizoaffective disorder, bipolar type (HCC) Expected: 01/21/2023, Expires: 01/22/2024 TSH Lab Routine Schizoaffective disorder, bipolar type (HCC) Expected: 01/21/2023, Expires: 01/22/2024 T4, FREE Lab Routine Schizoaffective disorder, bipolar type (HCC) Expected: 01/21/2023, Expires: 01/22/2024 Scheduled Procedures Name Priority Associated Diagnoses Date/Ti [...] 07/31/2021 LUNG CANCER SCREENING - USE SMARTSET [id number] Completed 07/30/2022, 07/16/2021, 07/14/2018, Additional history exists GARDASIL-HPV IMMUNIZATION SERIES Aged Out No longer eligible based on patient's age to complete this topic MENINGOCOCCAL (MENACTRA/MENVEO) Aged Out No longer eligible based on patient's age to complete this topic documented as of this encounter Medical Devices Implanted Type Area Salt Miner Device Identifier Shelf Expiration Date Model / Serial / Lot Mesh Supramesh 4x8 [id number] - [id number] Implanted:Qty: 1 on 05/27/2009 at OR [facility] [place] N/A: Abdomen CR BARD : DAVOL 03/12/2011 [id number] / / [id number] documented as of this encounter Visit Diagnoses Diagnosis Schizoaffective disorder, bipolar type (HCC)- Primary Schizoaffective disorder, unspecified condition documented in this encounter Advance Directives [...] and were consensually agreed upon. Care Teams Life Cycle Assessment Analyst Relationship Specialty Start Date End Date Rodo Pineda DO [address] [place] [address] PCP - General Family Medicine 12/17/17 documented as of this encounter
--- OUTSIDE RECORDS SUMMARY | 2023-05-29 02:42 | External Medical Summary | Summary of Care ---
Author Name Unknown Organization [facility] Address [address] [place] [address] Phone [phone] Care Team Providers Care Beverage Sales Consultant Name Role Phone Rodo Pineda Primary Care Provider Encounter Details Date Type Department Care Team Description 01/21/2023 Orders Only Laboratory, [facility] [address] [place] [phone] [address] Guardado PA-C [address] [place] [address] Schizoaffective disorder, bipolar type ([facility])* Allergies Active Allergy Reactions Severity Noted Date [...] PPD 09/08/2006 Pneumococcal Conjugate Vacci ne, 20-valent ([id number]) 11/14/2021 Pneumococcal Polysaccharide PPV23 (Pneumovax) 04/17/2003 Seasonal [...] Mukherjee, RDN [address] [place] [address] 03/04/2023 Office Visit Family Medicine Renae Costello CRNP [address] [place] [address] 05/27/2023 Office Visit Family Medicine Renae Costello CRNP [address] [place] [address] Scheduled Orders Name Type Priority Associated Diagnoses [...] 07/31/2021 LUNG CANCER SCREENING - USE SMARTSET [id number] Completed 07/30/2022, 07/16/2021, 07/14/2018, Additional history exists GARDASIL-HPV IMMUNIZATION SERIES Aged Out No longer eligible based on patient's age to complete this topic MENINGOCOCCAL (MENACTRA/MENVEO) Aged Out No longer eligible based on patient's age to complete this topic documented as of this encounter Medical Devices Implanted Type Area Nurse'S Assistant Device Identifier Shelf Expiration Date Model / Serial / Lot Mesh Supramesh 4x8 [id number] - [id number] Implanted:Q[place]: 1 [place]27[place]2009 [place] [facility] [place]A: Abdomen CR BARD : DAVOL 03/12/2011 [id number] / / [id number] documented as of this encounter Visit Diagnoses [...] and were consensually agreed upon. Care Teams Beverage Sales Consultant Relationship Specialty Start Date End Date Rodo Pineda DO [address] [place] [address] PCP - General Family Medicine 12/17/17 documented as of this encounter
--- OUTSIDE RECORDS SUMMARY | 2023-05-29 02:42 | External Medical Summary | Summary of Care ---
Author Name Unknown Organization [facility] Address [address] [address] [address] Phone [phone] Care Team Providers Care Sole Leveler Machine Name Role Phone Elsie Pinedar Mark Primary Care Provider Reason for Visit * Reason Comments Outpatient Testing Encounter Details Date Type Department Care Team Description 01/07/2023 [facility] [address] [facility] [place] [phone] [facility] [address] [place] [address] Acquired hypothyroidism Allergies Active Allergy Reactions Severity Noted Date Comments Bee Stings Hives Medium 03/08/2009 Niacin Itching High 03/26/2011 Penicillin V Potassium 08/26/2007 Pt told as a child he was allergic to it documented as of this encounter (statuses as of 01/07/2023) Medications Medication Sig Dispensed Refills Start Date End Date Status BENZTROPINE MESYLATE 1 MG PO TABSIndications:S chizoaffective disorder, chronic condition ([facility]) 1 tab daily 30 5 09/02/2007 Active LOXAPINE SUCCINATE 50 MG PO CAPSIndications:S chizoaffective disorder, chronic condition ([facility]) 1 cap at bedtime 60 Cap 2 04/16/2011 Active SERTRALINE HCL 100 MG PO TABSIndications:S chizoaffective disorder, chronic condition ([facility]),Anxiety state one pill each day 100 Tab [...] as of this encounter (statuses as of 01/07/2023) Active Problems Problem Noted Date Right kidney [...] as of this encounter (statuses as of 01/07/2023) Resolved Problems Problem Noted Date Resolved Date [...] as of this encounter (statuses as of 01/07/2023) Immunizations Name Administration Dates Next Due COVID-19 mRNA, LNP-s, No Pre serve, 2-Dose Series (Moderna) 07/25/2020,06/27/2020 HEP A - Hepatitis A (Adult > 18 yrs) 09/09/2002, 04/11/2002 Hepatitis B, 20+ yrs 09/09/2002,05/12/2002,04/11 PPD 09/08/2006 Pneumococcal Conjugate Vacci ne, 20-valent ([id number]) 11/14/2021 Pneumococcal Polysaccharide PPV23 (Pneumovax) 04/17/2003 Seasonal [...] Mukherjee, RDN [address] [place] [address] 03/04/2023 Office Visit Family Medicine Renae Costello CRNP [address] [place] [address] 05/27/2023 Office Visit Family Renae Winters CRNP [address] [place] [address] Pending Results Name Type Priority Associated Diagnoses Date /Time TSH WITH FREE T4 IF INDICATED Lab Routine Acquired hypothyroidism 01/07/2023 12:15 PM EDT Scheduled Procedures Name Priority Associated [...] 09/08/2020, 08/29/2015, 08/29/2015, Additional history exists Depression Screening, Annual for Pts 12 and Over 11/20/2023 11/19/2022 GFR 11/20/2023 11/19/2022, 0 07/2022, 11/14/2021, Additional history exists HbA1c 11/20/2023 11/19/2022, 0 07/2022, 11/14/2021, Additional history exists O2 ASSESSMENT COMPLETED IN PAST YEAR FOR COPD 11/20/2023 11/19/2022 TSH 11/20/2023 11/19/2022, 0 07/2022, 11/14/2021, Additional history exists Albumin/Creatinine Ratio 05/14/2025 05/14/2022 Lipid Panel 11/14/2026 11/14/2021, 12/2 , 03/15/2020, Additional history exists Hepatitis B Completed 09/09/2002, 05/2002, 04/11/2002 COLONOSCOPY-EVERY 5 YRS AGES 18-100 Discontinued 09/08/2020, 08/29/2015, 08/29/2015, Additional history exists Alpha-1 Antitrypsin Completed 07/31/2021 Pneumococcal Vaccine: Pediatrics (0 to 5 Years) and At-Risk Patients (6 to 64 Years) Completed 11/14/2021, 04/17/2003 Zoster Vaccines Completed 11/14/2021, 07/31/2021 LUNG CANCER SCREENING - USE SMARTSET [id number] Completed 07/30/2022, 07/16/2021, 07/14/2018, Additional history exists GARDASIL-HPV IMMUNIZATION SERIES Aged Out No longer eligible based on patient's age to complete this topic MENINGOCOCCAL (MENACTRA/MENVEO) Aged Out No longer eligible based on patient's age to complete this topic documented as of this encounter Medical Devices Implanted Type Area Teasel Gig Operator Device Identifier Shelf Expiration Date Model / Serial / Lot Mesh Supramesh 4x8 [id number] - [id number] Implanted:Qty: 1 on [place]2009 [place] [facility] [place]: Abdomen CR BARD : DAVOL 03/12/2011 [id number] / / [id number] documented as of this encounter Visit Diagnoses Diagnosis Acquired hypothyroidism Unspecified hypothyroidism documented in this encounter Advance Directives Latest [...] and were consensually agreed upon. Care Teams Sole Leveler Machine Relationship Specialty Start Date End Date Rodo Pineda DO [address] [place] [address] PCP - General Family Medicine 12/17/17 documented as of this encounter
--- OUTSIDE RECORDS SUMMARY | 2023-05-29 02:42 | External Medical Summary ---
Author Name Unknown Address Unknown Organization K01:[facility] - [address] [place] [address] Laboratory Report Ordering Provider Test Date Status LEOLA CERON 01/07/2023 12:15:12 Final Observation Date Value Abnormality Reference (Units ) Status TSH 01/07/2023 12:15:12 1.44 0.27-4.20 (uIU/mL) Final Performing Location [facility] - [address] [place] [id number]
--- OUTSIDE RECORDS SUMMARY | 2023-05-29 02:42 | External Medical Summary | Summary of Care ---
Author Name Unknown Organization [facility] Address [address] [address] Phone [phone] Care Team Providers Care Environmental Health Aide Name Role Phone Rodo Pineda Primary Care Provider Reason for Visit * Reason Onset Date Comments Test Results 01/08/2023 Encounter Details Date Type Department Care Team Description 01/08/2023 Telephone Family Practice [facility] [address] [place] [address] Renae Costello CRNP [address] [place] [id number] Test Results Allergies Active Allergy Reactions Severity Noted Date Comments Bee Stings Hives Medium 03/08/2009 Niacin Itching High 03/26/2011 Penicillin V Potassium 08/26/2007 Pt told as a child he was allergic to it documented as of this encounter (statuses as of 01/08/2023) Medications Medication Sig Dispensed Refills Start Date [...] as of this encounter (statuses as of 01/08/2023) Active Problems Problem Noted Date Right kidney [...] as of this encounter (statuses as of 01/08/2023) Resolved Problems Problem Noted Date Resolved Date [...] as of this encounter (statuses as of 01/08/2023) Immunizations Name Administration Dates Next Due COVID-19 mRNA, LNP-s, No Pre serve, 2-Dose Series (Moderna) 07/25/2020,06/27/2020 HEP A - Hepatitis A (Adult > 18 yrs) 09/09/2002, 04/11/2002 Hepatitis B, 20+ yrs 09/09/2002,05/12/2002,04/11 PPD 09/08/2006 Pneumococcal Conjugate Vacci ne, 20-valent ([id number]) 11/14/2021 Pneumococcal Polysaccharide PPV23 (Pneumovax) 04/17/2003 Seasonal [...] encounter Miscellaneous Notes * Telephone Encounter - Venita Fallon LPN - 01/08/2023 7:48 AM EDT Pt aware. Stay on current dose of med. * Telephone Encounter - SMITHA Bess - 01/08/2023 6:59 AM EDT Please notify patient- Recheck of thyroid is normal. Brooks, MSN, SMITHA [facility] documented in this encounter Plan of Treatment Upcoming Encounters Date Type Specialty Care Team Description 02/28/2023 Telemedicine Nutrition Services Barbara Mukherjee, ELIECER [address] [place] [address] 03/04/2023 Office Visit Family Medicine Renae Costello CRNP [address] [place] [address] 05/27/2023 Office Visit Family Medicine Renae Costello CRNP [address] [place] [address] Scheduled Procedures Name Priority Associated Diagnoses Date/Ti [...] and Over 11/20/2023 11/19/2022 GFR 11/20/2023 11/19/2022, 07/2022, 11/14/2021, [...] 07/31/2021 LUNG CANCER SCREENING - USE SMARTSET [id number] Completed 07/30/2022, 07/16/2021, 07/14/2018, Additional history exists GARDASIL-HPV IMMUNIZATION SERIES Aged Out No longer eligible based on patient's age to complete this topic MENINGOCOCCAL (MENACTRA/MENVEO) Aged Out No longer eligible based on patient's age to complete this topic documented as of this encounter Medical Devices Implanted Type Area Insurance Salesman Device Identifier Shelf Expiration Date Model / Serial / Lot Mesh Supramesh 4x8 [id number] - [id number] Implanted:Qty: 1 on 05/27/2009 at [place] [facility] [place] N/A: Abdomen CR BARD : DAVOL 03/12/2011 [id number] / / [id number] documented as of this encounter Advance Directives [...] and were consensually agreed upon. Care Teams Environmental Health Aide Relationship Specialty Start Date End Date Rodo Pineda DO [address] [place] [address] PCP - General Family Medicine 12/17/17 documented as of this encounter
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
[2023-05-29] MEDS ORDERED: SODIUM CHLORIDE 0.9% 500 ML IV ONE (02:55)
[2023-05-29] MEDS ORDERED: ACETAMINOPHEN 500 MG TAB PO STA (02:55)
[2023-05-29] MEDS ORDERED: ALBUT/IPRATROP 3MG/0.5MG NEB 3 ML VIAL NEB STA (02:55)
[2023-05-29 03:13] LABS: Base Excess VBG 4.8 mEq/L; HCO3 VBG 30 mmol/L; Oxygen Saturation VBG 87.4 %; PCO2 VBG 45 mmHg (38-50); PO2 VBG 56 mmHg; pH VBG 7.43 (7.36-7.41)
[2023-05-29 03:26] LABS: Basophils # (auto) 0.03 K/uL (0.00-0.20); Basophils % (auto) 0.3 %; Eosinophils # (auto) 0.05 K/uL (0.00-0.50); Eosinophils % (auto) 0.5 %; Hematocrit (blood only) 47.7 % (42.0-52.0); Hemoglobin 16.1 g/dl (14.0-18.0); Immature Granulocytes # (auto) 0.03 K/uL (0.01-0.20); Immature Granulocytes % (auto) 0.3 %; Lymphocytes % (auto) 6.7 %; Mean Corpuscular Hemoglobin 28.1 pg (25.0-34.0); Mean Corpuscular Hgb Conc 33.8 g/dL (32.0-36.0); Mean Corpuscular Volume 83.4 fL (80.0-100.0); Mean Platelet Volume 9.1 fL (9.4-12.4); Monocytes # (auto) 0.77 K/uL (0.11-0.59); Monocytes % (auto) 7.4 %; Neutrophils # (auto) 8.81 K/uL (1.40-6.50); Neutrophils % (auto) 84.8 %; Platelet Count 316 K/uL (130-400); RDW Coefficient of Variation 15.4 % (11.5-14.5); RDW Standard Deviation 45.8 fL (36.4-46.3); Red Blood Count 5.72 M/uL (4.70-6.10); White Blood Count 10.39 K/ul (4.8-10.8)
[2023-05-29 03:33] LABS: Albumin Globulin Ratio 1.4 (0.9-2); Albumin Level 4.2 gm/dl (3.4-5.0); BUN Creatinine Ratio 9.7 (10-20); Bilirubin,Total 0.6 mg/dl (0.2-1.0); Calcium 9.1 mg/dl (8.6-10.3); Creatinine Clr Calc Pharmacy 148.9 ml/min; Est GFR (African American) 115.1 ml/min; Est GFR (Non-African American) 99.3 ml/min; Potassium 4.1 mmol/L (3.5-5.1); Total Protein 7.2 gm/dl (6.0-8.3)
[2023-05-29 03:38] LABS: Troponin I High Sensitivity 5.1 pg/ml (0-20)
[2023-05-29 04:01] LABS: Adenovirus PCR Not Detected (NotDetected); Bordetella parapertussis PCR Not Detected (NotDetected); Bordetella pertussis PCR Not Detected (NotDetected); Chlamydia pneumoniae PCR Not Detected (NotDetected); Coronavirus 229E PCR Not Detected (NotDetected); Coronavirus CoV-2 (COVID19)PCR Not Detected (NotDetected); Coronavirus HKU1 PCR Not Detected (NotDetected); Coronavirus NL63 PCR Not Detected (NotDetected); Coronavirus OC43PCR Not Detected (NotDetected); Human Metapneumovirus PCR Not Detected (NotDetected); Influenza A PCR Not Detected (NotDetected); Influenza B PCR Not Detected (NotDetected); Mycoplasma pneumoniae PCR Not Detected (NotDetected); Parainfluenza Virus 1 PCR Not Detected (NotDetected); Parainfluenza Virus 2 PCR Not Detected (NotDetected); Parainfluenza Virus 3 PCR Not Detected (NotDetected); Parainfluenza Virus 4 PCR Not Detected (NotDetected); Rhinovirus/Enterovirus PCR Not Detected (NotDetected)
[2023-05-29 04:05] LABS: INR 1.1 (0.9-1.1); Partial Thromboplastin Ratio 1.1; Partial Thromboplastin Time 31 Seconds (21-31); Prothrombin Time 11.7 Seconds (9.0-12.0)
[2023-05-29 04:08] LABS: Respiratory Syncytial VirusPCR DETECTED (NotDetected)
[2023-05-29 06:44] LABS: Appearance Urine Clear (Clear); Bilirubin Urine Negative (Negative); Blood Urine Negative (Negative); Color Urine Yellow; Glucose Urine UA Negative (Negative); Ketones Urine Negative (Negative); Leukocyte Esterase Urine Negative (Negative); Nitrite Urine Negative (Negative); Protein Urine Negative (Negative); Urobilinogen Urine Negative (Negative)
[2023-05-29] MEDS ORDERED: GLUCOSE 40% GEL 15 GM TUBE PO PRN (07:27)
[2023-05-29] MEDS ORDERED: GLUCOSE 10 TAB/TUBE PO PRN (07:27)
[2023-05-29] MEDS ORDERED: GLUCAGON FOR INJ 1 MG VIAL SQ PRN (07:27)
[2023-05-29] MEDS ORDERED: DEXTROSE 50% 50 ML SYRINGE IV PRN (07:27)
[2023-05-29] MEDS ORDERED: CARBOHYDRATES FOR HYPOGLYCEMIA PO PRN (07:27)
[2023-05-29] MEDS ORDERED: ACETAMINOPHEN 325 MG TAB PO PRN (07:27)
[2023-05-29] MEDS ORDERED: NITROGLYCERIN SL 0.4 MG/TAB TAB SL PRN (07:27)
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
--- NOTE | 2023-05-29 08:01 | XRay Report ---
SINGLE VIEW CHEST CLINICAL HISTORY: Atypical chest pain. Dyspnea FINDINGS: An AP, portable, upright chest radiograph is compared to study dated 09/13/2018 and correlate d with chest CT dated 07/23/2013. The heart is enlarged and noting atherosclerotic calcification of th e thoracic aorta. There is prominence of the pulmonary vasculature. Emphysema and chronic interstitia l thickening is similar to previous. A metallic foreign body is again seen in the right lower lung. T here is volume loss in the right lung with pleural thickening at the right lung base. This is similar to previous. No superimposed airspace consolidation or large pleural effusion is identified. No pneu mothorax is seen. The skeletal structures are osteopenic. There is chronic deformity of the right-sandra ed ribs. Arthritic change is seen in the shoulders. IMPRESSION: 1. Cardiomegaly and emphysema with prominence of the pulmonary vasculature. Correlate clinically for evidence of fluid overload/mild congestive change. 2. No airspace consolidation or large pleural effusion is identified. 3. A metallic foreign body is again seen in the right lower lung. ACT 112: Negative or not required by law. Electronically signed by: Ambrosio Ríos M.D. 05/29/2023 8:00 AM
[2023-05-29] MEDS: INSULIN ASPART PER UNIT CHARGE SC SCH ×4 (08:04→20:53)
[2023-05-29] MEDS ORDERED: NON-FORMULARY MEDICATION (Fluticasone-Umeclidin-Vilanter [Trelegy Ellipta] 100-62.5-25 mcg INH SCH (09:00)
[2023-05-29] MEDS: carvediloL 12.5 MG TAB PO SCH ×2 (09:38→17:49)
[2023-05-29] MEDS: amLODIPine BESYLATE 5 MG TAB PO SCH (09:38)
[2023-05-29] MEDS: ALBUT/IPRATROP 3MG/0.5MG NEB 3 ML VIAL NEB SCH ×4 (09:40→20:13)
[2023-05-29] MEDS: LEVOTHYROXINE SODIUM 137 MCG TABLET PO SCH (09:41)
[2023-05-29] MEDS: BENZTROPINE MESYLATE 1 MG TAB PO SCH (09:42)
[2023-05-29] MEDS: busPIRone 5 MG TAB PO SCH ×3 (09:43→20:56)
[2023-05-29] MEDS: ENOXAPARIN INJ 40 MG/0.4 ML SYR SQ SCH (09:43)
[2023-05-29] MEDS: FLUTICASONE FUROATE 100MCG 14 PUFFS/INHALER INH SCH (09:44)
[2023-05-29] MEDS: UMECLIDINIUM/VILANTEROL 62.5/25MCG 7 PUFFS/INHALER INH SCH (09:44)
[2023-05-29] MEDS: LOVASTATIN 20 MG TAB PO SCH (09:45)
[2023-05-29] MEDS: lisinopril 40 MG TAB PO SCH (09:45)
[2023-05-29] MEDS: SERTRALINE HCL 100 MG TABLET PO SCH (09:46)
[2023-05-29] MEDS: hydrOXYzine HCl 25 MG TAB PO PRN ×2 (09:46→22:39)
[2023-05-29] MEDS: methylPREDNISolone 40 MG in SYRINGE 0 ML IV SCH ×3 (10:49→20:55)
[2023-05-29] MEDS ORDERED: hydrOXYzine HCl 25 MG TAB PO STA (15:30)
[2023-05-29] MEDS: FUROSEMIDE 20 MG TAB PO SCH (16:13)
[2023-05-29] MEDS: guaiFENesin 600 MG TABCR PO SCH ×2 (16:14→20:55)
[2023-05-29] MEDS: MONTELUKAST SODIUM 10 MG TABLET PO SCH (20:55)
[2023-05-30] MEDS: LEVOTHYROXINE SODIUM 137 MCG TABLET PO SCH (06:03)
[2023-05-30 06:32] LABS: BUN Creatinine Ratio 17.7 (10-20); Calcium 8.9 mg/dl (8.6-10.3); Creatinine Clr Calc Pharmacy 171.6 ml/min; Est GFR (African American) 122.4 ml/min; Est GFR (Non-African American) 105.6 ml/min; Magnesium 2.2 mg/dl (1.7-2.4); Phosphorus 3.3 mg/dl (2.5-4.9); Potassium 4.1 mmol/L (3.5-5.1)
[2023-05-30 06:47] LABS: Thyroid Stimulating Hormone 0.241 uIu/ml (0.300-4.500)
[2023-05-30] MEDS: ALBUT/IPRATROP 3MG/0.5MG NEB 3 ML VIAL NEB SCH ×4 (07:16→19:38)
[2023-05-30 07:22] LABS: T4 Free Thyroxine 1.25 ng/dl (0.61-1.60)
[2023-05-30 08:22] LABS: Estimated Average Glucose 126 mg/dl
[2023-05-30] MEDS: INSULIN ASPART PER UNIT CHARGE SC SCH ×4 (09:04→20:43)
[2023-05-30] MEDS: guaiFENesin 600 MG TABCR PO SCH ×2 (09:05→20:25)
[2023-05-30] MEDS: carvediloL 12.5 MG TAB PO SCH ×2 (09:05→17:50)
[2023-05-30] MEDS: busPIRone 5 MG TAB PO SCH ×3 (09:06→20:25)
[2023-05-30] MEDS: lisinopril 40 MG TAB PO SCH (09:06)
[2023-05-30] MEDS: BENZTROPINE MESYLATE 1 MG TAB PO SCH (09:06)
[2023-05-30] MEDS: LOVASTATIN 20 MG TAB PO SCH (09:06)
[2023-05-30] MEDS: SERTRALINE HCL 100 MG TABLET PO SCH (09:07)
[2023-05-30] MEDS: ENOXAPARIN INJ 40 MG/0.4 ML SYR SQ SCH (09:07)
[2023-05-30] MEDS: amLODIPine BESYLATE 5 MG TAB PO SCH (09:07)
[2023-05-30] MEDS: FUROSEMIDE 20 MG TAB PO SCH (09:07)
[2023-05-30] MEDS: UMECLIDINIUM/VILANTEROL 62.5/25MCG 7 PUFFS/INHALER INH SCH (09:08)
[2023-05-30] MEDS: methylPREDNISolone 40 MG in SYRINGE 0 ML IV SCH ×3 (09:13→20:43)
[2023-05-30] MEDS: FLUTICASONE FUROATE 100MCG 14 PUFFS/INHALER INH SCH (09:14)
[2023-05-30 09:21] LABS: Basophils # (auto) 0.02 K/uL (0.00-0.20); Basophils % (auto) 0.2 %; Eosinophils # (auto) 0.01 K/uL (0.00-0.50); Eosinophils % (auto) 0.1 %; Hemoglobin 15.4 g/dl (14.0-18.0); Immature Granulocytes # (auto) 0.06 K/uL (0.01-0.20); Immature Granulocytes % (auto) 0.5 %; Lymphocytes # (auto) 0.65 K/uL (1.20-3.40); Lymphocytes % (auto) 5.3 %; Mean Corpuscular Hemoglobin 27.7 pg (25.0-34.0); Mean Corpuscular Hgb Conc 33.5 g/dL (32.0-36.0); Mean Corpuscular Volume 82.9 fL (80.0-100.0); Mean Platelet Volume 8.7 fL (9.4-12.4); Monocytes # (auto) 0.63 K/uL (0.11-0.59); Monocytes % (auto) 5.1 %; Neutrophils # (auto) 10.99 K/uL (1.40-6.50); Neutrophils % (auto) 88.8 %; Platelet Count 283 K/uL (130-400); RDW Standard Deviation 45.2 fL (36.4-46.3); Red Blood Count 5.55 M/uL (4.70-6.10); White Blood Count 12.36 K/ul (4.8-10.8)
--- NOTE | 2023-05-30 11:12 | Hospitalist Progress Note ---
Date of Service May 30, 2023 Assessment & Plan (1) COPD exacerbation: Plan: 63 yo M w/ hypertension, hypothyroidism, prediabetes, COPD, moderate persistent asthma, history of hypertrophic obstructive cardiomyopathy, grade 1 diastolic dysfunction, chronic respiratory failure with hypoxia on home oxygen therapy as per [facility] but patient states that he is not on oxygen at home. Morbid obesity, alcoholic dependence in remission, Schizoaffective disorder, medical marijuana use, comes in because of shortness of breath going on for last few days. COPD/asthma exacerbation + RSV DuoNebs scheduled and as needed IV Solu-Medrol 40 mg 3 times daily Procalcitonin negative Closely monitor Two-step home oxygen evaluation prior to discharge RSV droplet precautions Supportive care History of hypertrophic obstructive cardiomyopathy Grade 1 diastolic dysfunction Has lower extremity edema on admission Had mild chest discomfort that resolved now serial cardiac enzymes negative echo -EF 65 to 70%. There is mild concentric LVH. Grade 1 diastolic dysfunction. Poorly visualized valvular anatomy without significant stenosis or regurg. Hypertension Lisinopril, Coreg and amlodipine Will monitor Hypothyroidism cont Synthyroid Hyperlipidemia On statin Diabetes Hold metformin sliding scale Will monitor Schizoaffective disorder Continue home meds DVT prophylaxis Lovenox Disposition Med/tele Full code Admission and Anticipated Discharge Date Admission Date: May 29, 2023 Subjective Pt seen in follow up of hypoxia, copd exacerbation, +RSV Sitting up in chair, in no acute distress, on supplemental oxygen Says breathing feels much better He is coughing up some thin sputum No fevers chills chest pain, no shortness of breath Reports feeling somewhat anxious, reports history of anxiety Review of Systems Review of Systems: All systems reviewed & are unremarkable except as noted in Subjective Physical Exam Physical Exam: General- obese M in NAD, on suppl. O2 Head- atraumatic Eyes- PERRL. Neck- supple, no JVD. Lungs- clear to auscultation mild b/l occasional wheezing Heart- regular rhythm; no murmur, no gallop. Abdomen- normal bowel sounds, soft, nontender, no distension. + obese abdomen Extremities- trace lower extremity edema present. No erythema seen. Neuro- alert, oriented x 3; PERRL, no facial palsy; no dysarthria; moves extremities. Skin- warm & dry Results & Data Results & Data Vital Signs (Past 12 Hours) Vital Signs Temp Pulse Pulse Resp BP Pulse Ox O2 Del Method 01/19/24 11:02 62 18 91 Nasal Cannula 05/30/23 07:43 37.0 C 57 L 20 114/74 91 Oxymask 05/30/23 07:42 Nasal Cannula 05/30/23 07:16 74 18 92 Oxymask 05/30/23 05:56 61 05/30/23 03:27 36.7 C 60 21 114/75 93 Oxymask O2 Flow Rate 05/30/23 11:02 3 05/30/23 07:43 4 05/30/23 07:42 4 05/30/23 07:16 4 05/30/23 05:56 05/30/23 03:27 4 Laboratory Results 05/30/23 05/30/23 05/30/23 Range/Units 08:41 08:12 05:01 WBC 12.36 H Cancelled RBC 5.55 Cancelled Hgb 15.4 Cancelled Hct 46.0 Cancelled MCV 82.9 Cancelled MCH 27.7 Cancelled MCHC 33.5 Cancelled RDW Std Deviation 45.2 Cancelled RDW Coeff of Lazaro 15.0 H Cancelled Plt Count 283 Cancelled MPV 8.7 L Cancelled Immature Gran % (Auto) 0.5 Cancelled Neut % (Auto) 88.8 Cancelled Lymph % (Auto) 5.3 Cancelled Anderson % (Auto) 5.1 Cancelled Eos % (Auto) 0.1 Cancelled Baso % (Auto) 0.2 Cancelled Neut # (Auto) 10.99 H Cancelled Lymph # (Auto) 0.65 L Cancelled Anderson # (Auto) 0.63 H Cancelled Eos # (Auto) 0.01 Cancelled Baso # (Auto) 0.02 Cancelled Immature Gran # (Auto) 0.06 Cancelled Absolute Nucleated RBC Cancelled Nucleated RBC % (auto) Cancelled Neutrophils % (Manual) Cancelled Band Neutrophils % Cancelled Lymphocytes % (Manual) Cancelled Prolymphocyte % Cancelled Reactive Lymphs % (Man) Cancelled Monocytes % (Manual) Cancelled Eosinophils % (Manual) Cancelled Basophils % (Manual) Cancelled Metamyelocytes % (Man) Cancelled Myelocytes % (Man) Cancelled Promyelocytes % (Man) Cancelled Blast Cells % (Manual) Cancelled Plasma Cell % (Manual) Cancelled Other Cells % Cancelled Nucleated RBC % Cancelled Neutrophils # (Manual) Cancelled Band Neutrophils # Cancelled Total Absolute Neuts Cancelled Lymphocytes # (Manual) Cancelled Prolymphocyte # Cancelled Reactive Lymphs # Cancelled Total Abs Lymphocytes Cancelled Monocytes # (Manual) Cancelled Eosinophils # (Manual) Cancelled Basophils # (Manual) Cancelled Metamyelocytes # (Man) Cancelled Myelocytes # (Manual) Cancelled Promyelocytes # (Man) Cancelled Blast Cells # (Man) Cancelled Plasma Cell # (Manual) Cancelled Other Cells # Cancelled Nucleated RBCs # (Man) Cancelled Hypersegmented Neuts Cancelled Hyposegmented Neuts Cancelled Hypogranular Neuts Cancelled Large Granular Lymphs Cancelled # Lrg Granular Lymphs Cancelled Hairy Cells Cancelled Smudge Cells Cancelled Toxic Granulation Cancelled Toxic Vacuolation Cancelled Dohle Bodies Cancelled Cathi Rods Cancelled Platelet Estimate Cancelled Hypogranular Platelets Cancelled Giant Platelets Cancelled Platelet Satelliting Cancelled RBC Morphology Cancelled Polychromasia Cancelled Hypochromasia Cancelled Poikilocytosis Cancelled Basophilic Stippling Cancelled Anisocytosis Cancelled Microcytosis Cancelled Macrocytosis Cancelled Spherocytes Cancelled Pappenheimer Bodies Cancelled Sickle Cells Cancelled Target Cells Cancelled Tear Drop Cells Cancelled Ovalocytes Cancelled Stomatocytes Cancelled [place] Bodies Cancelled Echinocytes Cancelled Acanthocytes (Spur) Cancelled Rouleaux Cancelled RBC Agglutinates Cancelled Schistocytes Cancelled Sezary Cell Cancelled Sodium 136 (136-145) mmol/L Potassium 4.1 (3.5-5.1) mmol/L Chloride 99 (98-107) mmol/L Carbon Dioxide 28 (21-32) mmol/L Anion Gap 9 (3-11) BUN 11 (6-23) mg/dl Creatinine 0.62 (0.6-1.4) mg/dl Est Cr Clr Drug Dosing 171.6 ml/min Est GFR ( Amer) 122.4 ml/min Est GFR (Non-Af Amer) 105.6 ml/min BUN/Creatinine Ratio 17.7 (10-20) Glucose 132 H (70-99(Fasting)) mg/dl POC Glucose 126 H (70-99) mg/dl Estimat Average Glucose 126 mg/dl Hemoglobin A1c 6.0 H (4.5-5.6) % Calcium 8.9 (8.6-10.3) mg/dl Phosphorus 3.3 (2.5-4.9) mg/dl Magnesium 2.2 (1.7-2.4) mg/dl Troponin I High Sens (0-20) pg/ml TSH 0.241 L (0.300-4.500) uIu/ml Free T4 1.25 (0.61-1.60) ng/dl Blood Parasites ID Cancelled 05/29/23 05/29/23 05/29/23 Range/Units 20:34 17:17 14:16 WBC RBC Hgb Hct MCV MCH MCHC RDW Std Deviation RDW Coeff of Lazaro Plt Count MPV Immature Gran % (Auto) Neut % (Auto) Lymph % (Auto) Anderson % (Auto) Eos % (Auto) Baso % (Auto) Neut # (Auto) Lymph # (Auto) Anderson # (Auto) Eos # (Auto) Baso # (Auto) Immature Gran # (Auto) Absolute Nucleated RBC Nucleated RBC % (auto) Neutrophils % (Manual) Band Neutrophils % Lymphocytes % (Manual) Prolymphocyte % Reactive Lymphs % (Man) Monocytes % (Manual) Eosinophils % (Manual) Basophils % (Manual) Metamyelocytes % (Man) Myelocytes % (Man) Promyelocytes % (Man) Blast Cells % (Manual) Plasma Cell % (Manual) Other Cells % Nucleated RBC % Neutrophils # (Manual) Band Neutrophils # Total Absolute Neuts Lymphocytes # (Manual) Prolymphocyte # Reactive Lymphs # Total Abs Lymphocytes Monocytes # (Manual) Eosinophils # (Manual) Basophils # (Manual) Metamyelocytes # (Man) Myelocytes # (Manual) Promyelocytes # (Man) Blast Cells # (Man) Plasma Cell # (Manual) Other Cells # Nucleated RBCs # (Man) Hypersegmented Neuts Hyposegmented Neuts Hypogranular Neuts Large Granular Lymphs # Lrg Granular Lymphs Hairy Cells Smudge Cells Toxic Granulation Toxic Vacuolation Dohle Bodies Cathi Rods Platelet Estimate Hypogranular Platelets Giant Platelets Platelet Satelliting RBC Morphology Polychromasia Hypochromasia Poikilocytosis Basophilic Stippling Anisocytosis Microcytosis Macrocytosis Spherocytes Pappenheimer Bodies Sickle Cells Target Cells Tear Drop Cells Ovalocytes Stomatocytes [place] Bodies Echinocytes Acanthocytes (Spur) Rouleaux RBC Agglutinates Schistocytes Sezary Cell Sodium (136-145) mmol/L Potassium (3.5-5.1) mmol/L Chloride (98-107) mmol/L Carbon Dioxide (21-32) mmol/L Anion Gap (3-11) BUN (6-23) mg/dl Creatinine (0.6-1.4) mg/dl Est Cr Clr Drug Dosing ml/min Est GFR ( Amer) ml/min Est GFR (Non-Af Amer) ml/min BUN/Creatinine Ratio (10-20) Glucose (70-99(Fasting)) mg/dl POC Glucose 146 H 144 H (70-99) mg/dl Estimat Average Glucose mg/dl Hemoglobin A1c (4.5-5.6) % Calcium (8.6-10.3) mg/dl Phosphorus (2.5-4.9) mg/dl Magnesium (1.7-2.4) mg/dl Troponin I High Sens 4.5 (0-20) pg/ml TSH (0.300-4.500) uIu/ml Free T4 (0.61-1.60) ng/dl Blood Parasites ID 05/29/23 Range/Units 13:01 WBC RBC Hgb Hct MCV MCH MCHC RDW Std Deviation RDW Coeff of Lazaro Plt Count MPV Immature Gran % (Auto) Neut % (Auto) Lymph % (Auto) Anderson % (Auto) Eos % (Auto) Baso % (Auto) Neut # (Auto) Lymph # (Auto) Anderson # (Auto) Eos # (Auto) Baso # (Auto) Immature Gran # (Auto) Absolute Nucleated RBC Nucleated RBC % (auto) Neutrophils % (Manual) Band Neutrophils % Lymphocytes % (Manual) Prolymphocyte % Reactive Lymphs % (Man) Monocytes % (Manual) Eosinophils % (Manual) Basophils % (Manual) Metamyelocytes % (Man) Myelocytes % (Man) Promyelocytes % (Man) Blast Cells % (Manual) Plasma Cell % (Manual) Other Cells % Nucleated RBC % Neutrophils # (Manual) Band Neutrophils # Total Absolute Neuts Lymphocytes # (Manual) Prolymphocyte # Reactive Lymphs # Total Abs Lymphocytes Monocytes # (Manual) Eosinophils # (Manual) Basophils # (Manual) Metamyelocytes # (Man) Myelocytes # (Manual) Promyelocytes # (Man) Blast Cells # (Man) Plasma Cell # (Manual) Other Cells # Nucleated RBCs # (Man) Hypersegmented Neuts Hyposegmented Neuts Hypogranular Neuts Large Granular Lymphs # Lrg Granular Lymphs Hairy Cells Smudge Cells Toxic Granulation Toxic Vacuolation Dohle Bodies Cathi Rods Platelet Estimate Hypogranular Platelets Giant Platelets Platelet Satelliting RBC Morphology Polychromasia Hypochromasia Poikilocytosis Basophilic Stippling Anisocytosis Microcytosis Macrocytosis Spherocytes Pappenheimer Bodies Sickle Cells Target Cells Tear Drop Cells Ovalocytes Stomatocytes [place] Bodies Echinocytes Acanthocytes (Spur) Rouleaux RBC Agglutinates Schistocytes Sezary Cell Sodium (136-145) mmol/L Potassium (3.5-5.1) mmol/L Chloride (98-107) mmol/L Carbon Dioxide (21-32) mmol/L Anion Gap (3-11) BUN (6-23) mg/dl Creatinine (0.6-1.4) mg/dl Est Cr Clr Drug Dosing ml/min Est GFR ( Amer) ml/min Est GFR (Non-Af Amer) ml/min BUN/Creatinine Ratio (10-20) Glucose (70-99(Fasting)) mg/dl POC Glucose 126 H (70-99) mg/dl Estimat Average Glucose mg/dl Hemoglobin A1c (4.5-5.6) % Calcium (8.6-10.3) mg/dl Phosphorus (2.5-4.9) mg/dl Magnesium (1.7-2.4) mg/dl Troponin I High Sens (0-20) pg/ml TSH (0.300-4.500) uIu/ml Free T4 (0.61-1.60) ng/dl Blood Parasites ID Medications Administered Current Inpatient Medications Acetaminophen (Acetaminophen 325 Mg Tab) 650 mg PO Q4H PRN PRN Reason: Pain or Fever Stop: 06/28/23 07:26 Albuterol (Albut/Ipratrop 3mg/0.5mg Neb 3 Ml Vial) 3 ml NEB QIDR DANA; Protocol Stop: 06/28/23 07:26 Last Admin: 05/30/23 11:02 Dose: 3 ml Amlodipine Besylate (Amlodipine Besylate 5 Mg Tab) 5 mg PO DAILY [facility] Stop: 06/28/23 08:59 Last Admin: 05/30/23 09:07 Dose: 5 mg Benztropine Mesylate (Benztropine Mesylate 1 Mg Tab) 1 mg PO DAILY DANA Stop: 06/28/23 08:59 Last Admin: 05/30/23 09:06 Dose: 1 mg Buspirone HCl (Buspirone 5 Mg Tab) 10 mg PO TID DANA Stop: 06/28/23 08:59 Last Admin: 05/30/23 09:06 Dose: 10 mg Carvedilol (Carvedilol 12.5 Mg Tab) 12.5 mg PO BIDM [facility] Stop: 06/28/23 07:59 Last Admin: 05/30/23 09:05 Dose: 12.5 mg Dextrose (Dextrose 50% 50 Ml Syringe) 25 - 50 ml IV UD PRN; Protocol PRN Reason: Hypoglycemia Protocol Stop: 06/28/23 07:26 Enoxaparin Sodium (Enoxaparin Inj 40 Mg/0.4 Ml Syr) 40 mg SQ Q24H DANA Stop: 06/28/23 08:59 Last Admin: 05/30/23 09:07 Dose: 40 mg Fluticasone Furoate (Fluticasone Furoate 100mcg 14 Puffs/Inhaler) 1 puffs INH DAILY [facility] Stop: 06/28/23 08:59 Last Admin: 05/30/23 09:14 Dose: 1 puffs Furosemide (Furosemide 20 Mg Tab) 20 mg PO QAM [facility] Stop: 06/28/23 15:29 Last Admin: 05/30/23 09:07 Dose: 20 mg Glucagon (Glucagon For Inj 1 Mg Vial) 1 mg SQ UD PRN; Protocol PRN Reason: Hypoglycemia Protocol Stop: 06/28/23 07:26 Glucose (Glucose 10 Tab/Tube) 4 - 8 tab PO UD PRN; Protocol PRN Reason: Hypoglycemia Treatment Stop: 06/28/23 07:26 Glucose (Glucose 40% Gel 15 Gm Tube) 15 - 30 gm PO UD PRN; Protocol PRN Reason: Hypoglycemia Protocol Stop: 06/28/23 07:26 Guaifenesin (Guaifenesin 600 Mg Tabcr) 600 mg PO Q12 DANA Stop: 06/28/23 15:29 Last Admin: 05/30/23 09:05 Dose: 600 mg Hydroxyzine HCl (Hydroxyzine Hcl 25 Mg Tab) 50 mg PO BID PRN PRN Reason: Anxiety Stop: 06/28/23 07:26 Last Admin: 05/29/23 22:39 Dose: 50 mg Methylprednisolone 40 mg/ (Syringe) 0.64 mls @ 1.5 mls/min IV TID DANA Stop: 06/28/23 08:59 Last Admin: 05/30/23 09:13 Dose: 1.5 mls/min Insulin Aspart (Insulin Aspart Per Unit Charge) 0 units SC ACHS DANA Stop: 06/28/23 07:29 Last Admin: 05/30/23 09:04 Dose: 3 units Levothyroxine Sodium (Levothyroxine Sodium 137 Mcg Tablet) 137 mcg PO DAILYBB [facility] Stop: 06/28/23 07:44 Last Admin: 05/30/23 06:03 Dose: 137 mcg Lisinopril (Lisinopril 40 Mg Tab) 40 mg PO DAILY [facility]NA Stop: 06/28/23 08:59 Last Admin: 05/30/23 09:06 Dose: 40 mg Lovastatin (Lovastatin 20 Mg Tab) 40 mg PO DAILY [facility] Stop: 06/28/23 08:59 Last Admin: 05/30/23 09:06 Dose: 40 mg Miscellaneous (Loxapine 50mg--Order Awaiting Action) 1 each N/A QS [facility] Stop: 06/28/23 07:59 Miscellaneous (Carbohydrates For Hypoglycemia ) 15 - 30 gm PO UD PRN PRN Reason: Hypoglycemia Protocol Stop: 06/28/23 07:26 Montelukast Sodium (Montelukast Sodium 10 Mg Tablet) 10 mg PO HS [facility] Stop: 06/28/23 20:59 Last Admin: 05/29/23 20:55 Dose: 10 mg Nitroglycerin (Nitroglycerin Sl 0.4 Mg/Tab Tab) 0.4 mg SL Q5M PRN PRN Reason: Chest Pain Stop: 06/28/23 07:26 Sertraline HCl (Sertraline Hcl 100 Mg Tablet) 100 mg PO DAILY [facility] Stop: 06/28/23 08:59 Last Admin: 05/30/23 09:07 Dose: 100 mg Umeclidinium/Vilanterol (Umeclidinium/Vilanterol 62.5/25mcg 7 Puffs/Inhaler) 1 puffs INH DAILY [facility] Stop: 06/28/23 08:59 Last Admin: 05/30/23 09:08 Dose: 1 puffs
[2023-05-30] MEDS ORDERED: hydrOXYzine HCl 25 MG TAB PO STA (16:29)
[2023-05-30] MEDS: MONTELUKAST SODIUM 10 MG TABLET PO SCH (20:24)
[2023-05-30] MEDS: hydrOXYzine HCl 25 MG TAB PO PRN (20:43)
--- NOTE | 2023-05-30 22:49 | Electrocardiogram Report ---
Test Reason : Blood Pressure : / mmHG Vent. Rate : 076 BPM Atrial Rate : 076 BPM P-R Int : 164 ms QRS Dur : 080 ms QT Int : 408 ms P-R-T Axes : 040 065 043 degrees QTc Int : 459 ms Normal sinus rhythm Normal ECG When compared with ECG of 13-SEP-2018 17:39, No significant change was found Confirmed by Caden Harris [id number]) on 05/30/2023 10:49:20 PM Referred By: REFERRED SELF Confirmed By:Caden Harris
[2023-05-31] MEDS: LEVOTHYROXINE SODIUM 137 MCG TABLET PO SCH (05:41)
[2023-05-31] MEDS: ALBUT/IPRATROP 3MG/0.5MG NEB 3 ML VIAL NEB SCH ×4 (07:12→19:41)
[2023-05-31 07:20] LABS: Hematocrit (blood only) 50.6 % (42.0-52.0); Hemoglobin 16.3 g/dl (14.0-18.0); Mean Corpuscular Hemoglobin 27.5 pg (25.0-34.0); Mean Corpuscular Hgb Conc 32.2 g/dL (32.0-36.0); Mean Corpuscular Volume 85.5 fL (80.0-100.0); Mean Platelet Volume 8.7 fL (9.4-12.4); Platelet Count 315 K/uL (130-400); RDW Coefficient of Variation 15.4 % (11.5-14.5); Red Blood Count 5.92 M/uL (4.70-6.10)
[2023-05-31 07:42] LABS: BUN Creatinine Ratio 27.9 (10-20); Calcium 9.1 mg/dl (8.6-10.3); Creatinine Clr Calc Pharmacy 156.4 ml/min; Est GFR (African American) 117.8 ml/min; Est GFR (Non-African American) 101.6 ml/min; Magnesium 2.2 mg/dl (1.7-2.4); Phosphorus 3.8 mg/dl (2.5-4.9); Potassium 4.2 mmol/L (3.5-5.1)
[2023-05-31] MEDS: guaiFENesin 600 MG TABCR PO SCH ×2 (08:18→21:05)
[2023-05-31] MEDS: busPIRone 5 MG TAB PO SCH ×3 (08:19→21:04)
[2023-05-31] MEDS: LOVASTATIN 20 MG TAB PO SCH (08:19)
[2023-05-31] MEDS: lisinopril 40 MG TAB PO SCH (08:19)
[2023-05-31] MEDS: BENZTROPINE MESYLATE 1 MG TAB PO SCH (08:20)
[2023-05-31] MEDS: SERTRALINE HCL 100 MG TABLET PO SCH (08:20)
[2023-05-31] MEDS: amLODIPine BESYLATE 5 MG TAB PO SCH (08:20)
[2023-05-31] MEDS: FUROSEMIDE 20 MG TAB PO SCH (08:20)
[2023-05-31] MEDS: ENOXAPARIN INJ 40 MG/0.4 ML SYR SQ SCH (08:21)
[2023-05-31] MEDS: carvediloL 12.5 MG TAB PO SCH ×2 (08:21→17:48)
[2023-05-31] MEDS: FLUTICASONE FUROATE 100MCG 14 PUFFS/INHALER INH SCH (08:21)
[2023-05-31] MEDS: UMECLIDINIUM/VILANTEROL 62.5/25MCG 7 PUFFS/INHALER INH SCH (08:23)
[2023-05-31] MEDS: methylPREDNISolone 40 MG in SYRINGE 0 ML IV SCH ×3 (08:32→21:04)
--- NOTE | 2023-05-31 08:42 | XRay Report ---
XR chest 1V portable HISTORY: worsening hypoxia COMPARISON: Chest 05/30/2023. FINDINGS: No pneumothorax. The heart remains mildly enlarged. There is mild central pulmonary vascula r congestion without overt edema. This is similar to the prior study. No new focal lung consolidation s identified. Stable blunting of the right lateral costophrenic sulcus again noted. This is similar t o the prior study and favor scarring. No definite pleural effusions. IMPRESSION: Cardiomegaly and mild congestive change. This is similar to the prior study. ACT 112: Negative or not required by law. Electronically signed by: Thomas Farias M.D. 05/31/2023 8:41 AM
[2023-05-31] MEDS: INSULIN ASPART PER UNIT CHARGE SC SCH ×4 (08:43→21:19)
--- NOTE | 2023-05-31 13:37 | Hospitalist Progress Note ---
Date of Service May 31, 2023 Assessment & Plan (1) COPD exacerbation: Plan: 63 yo M w/ hypertension, hypothyroidism, prediabetes, COPD, moderate persistent asthma, history of hypertrophic obstructive cardiomyopathy, grade 1 diastolic dysfunction, chronic respiratory failure with hypoxia on home oxygen therapy as per [facility] but patient states that he is not on oxygen at home. Morbid obesity, alcoholic dependence in remission, Schizoaffective disorder, medical marijuana use, comes in because of shortness of breath going on for last few days. COPD/asthma exacerbation + RSV DuoNebs scheduled and as needed IV Solu-Medrol 40 mg 3 times daily Procalcitonin negative Closely monitor Two-step home oxygen evaluation prior to discharge 05/31 increased oxygen requirement now on 8L sputum cultx pending repeat CXR w/o changes from previous CT PE ordered Pulmonary consulted RSV droplet precautions Supportive care History of hypertrophic obstructive cardiomyopathy Grade 1 diastolic dysfunction Has lower extremity edema on admission Had mild chest discomfort that resolved now serial cardiac enzymes negative echo -EF 65 to 70%. There is mild concentric LVH. Grade 1 diastolic dysfunction. Poorly visualized valvular anatomy without significant stenosis or regurg. Hypertension Lisinopril, Coreg and amlodipine Will monitor Hypothyroidism cont Synthyroid Hyperlipidemia On statin Diabetes Hold metformin sliding scale Will monitor Schizoaffective disorder Continue home meds DVT prophylaxis Lovenox Disposition Med/tele Full code Admission and Anticipated Discharge Date Admission Date: May 29, 2023 Subjective Pt seen in follow up of hypoxia, copd exacerbation, +RSV Sitting up in chair, in no acute distress, on supplemental oxygen Yesterday he was feeling much better was on 3L, however now on 8L and reports not feeling so well. CXR ordered. He is coughing up some sputum, sputum cultx pending No fevers chills chest pain Reports feeling somewhat anxious, reports history of anxiety Update: CXR reviewed and not changed much from previous. Will also obtain CT PE and will further discuss w/ pulm. medicine. Review of Systems Review of Systems: All systems reviewed & are unremarkable except as noted in Subjective Physical Exam Physical Exam: General- obese M in NAD, on suppl. O2 8L (increased from previous) Head- atraumatic Eyes- PERRL. Neck- supple, no JVD. Lungs- + mild b/l exp. wheezing Heart- regular rhythm; no murmur, no gallop. Abdomen- normal bowel sounds, soft, nontender, no distension. + obese abdomen Extremities- trace lower extremity edema present. No erythema seen. Neuro- alert, oriented x 3; PERRL, no facial palsy; no dysarthria; moves extremities. Skin- warm & dry Results & Data Results & Data Vital Signs (Past 12 Hours) Vital Signs Temp Pulse Pulse Resp BP Pulse Ox O2 Del Method 05/31/23 12:04 37.3 C 54 L 20 119/71 93 High Flow Nasal Cannula 05/31/23 11:03 56 L 20 91 05/31/23 08:20 High Flow Nasal Cannula 05/31/23 08:03 65 05/31/23 08:02 37.0 C 72 20 143/73 H 93 High Flow Nasal Cannula 05/31/23 07:34 54 L 05/31/23 07:13 95 H 26 H 85 L Nasal Cannula 05/31/23 04:31 60 05/31/23 04:19 Nasal Cannula 05/31/23 04:00 36.7 C 63 18 125/73 95 Nasal Cannula O2 Flow Rate 05/31/23 12:04 8 05/31/23 11:03 8 05/31/23 08:20 8 05/31/23 08:03 05/31/23 08:02 8 05/31/23 07:34 05/31/23 07:13 5 05/31/23 04:31 05/31/23 04:19 4 05/31/23 04:00 4 Laboratory Results 05/31/23 05/31/23 05/31/23 Range/Units 12:16 08:12 06:27 WBC 15.80 H (4.8-10.8) K/ul RBC 5.92 (4.70-6.10) M/uL Hgb 16.3 (14.0-18.0) g/dl Hct 50.6 (42.0-52.0) % MCV 85.5 (80.0-100.0) fL MCH 27.5 (25.0-34.0) pg MCHC 32.2 (32.0-36.0) g/dL RDW Std Deviation 47.0 H (36.4-46.3) fL RDW Coeff of Lazaro 15.4 H (11.5-14.5) % Plt Count 315 (130-400) K/uL MPV 8.7 L (9.4-12.4) fL Sodium 136 (136-145) mmol/L Potassium 4.2 (3.5-5.1) mmol/L Chloride 98 (98-107) mmol/L Carbon Dioxide 31 (21-32) mmol/L Anion Gap 7 (3-11) BUN 19 (6-23) mg/dl Creatinine 0.68 (0.6-1.4) mg/dl Est Cr Clr Drug Dosing 156.4 ml/min Est GFR ( Amer) 117.8 ml/min Est GFR (Non-Af Amer) 101.6 ml/min BUN/Creatinine Ratio 27.9 H (10-20) Glucose 129 H (70-99(Fasting)) mg/dl POC Glucose 114 H 112 H (70-99) mg/dl Calcium 9.1 (8.6-10.3) mg/dl Phosphorus 3.8 (2.5-4.9) mg/dl Magnesium 2.2 (1.7-2.4) mg/dl 05/30/23 05/30/23 Range/Units 20:35 16:53 WBC (4.8-10.8) K/ul RBC (4.70-6.10) M/uL Hgb (14.0-18.0) g/dl Hct (42.0-52.0) % MCV (80.0-100.0) fL MCH (25.0-34.0) pg MCHC (32.0-36.0) g/dL RDW Std Deviation (36.4-46.3) fL RDW Coeff of Lazaro (11.5-14.5) % Plt Count (130-400) K/uL MPV (9.4-12.4) fL Sodium (136-145) mmol/L Potassium (3.5-5.1) mmol/L Chloride (98-107) mmol/L Carbon Dioxide (21-32) mmol/L Anion Gap (3-11) BUN (6-23) mg/dl Creatinine (0.6-1.4) mg/dl Est Cr Clr Drug Dosing ml/min Est GFR ( Amer) ml/min Est GFR (Non-Af Amer) ml/min BUN/Creatinine Ratio (10-20) Glucose (70-99(Fasting)) mg/dl POC Glucose 129 H 124 H (70-99) mg/dl Calcium (8.6-10.3) mg/dl Phosphorus (2.5-4.9) mg/dl Magnesium (1.7-2.4) mg/dl Medications Administered Current Inpatient Medications Acetaminophen (Acetaminophen 325 Mg Tab) 650 mg PO Q4H PRN PRN Reason: Pain or Fever Stop: 06/28/23 07:26 Albuterol (Albut/Ipratrop 3mg/0.5mg Neb 3 Ml Vial) 3 ml NEB QIDR DANA; Protocol Stop: 06/28/23 07:26 Last Admin: 05/31/23 11:02 Dose: 3 ml Amlodipine Besylate (Amlodipine Besylate 5 Mg Tab) 5 mg PO DAILY [facility] Stop: 06/28/23 08:59 Last Admin: 05/31/23 08:20 Dose: 5 mg Benztropine Mesylate (Benztropine Mesylate 1 Mg Tab) 1 mg PO DAILY [facility] Stop: 06/28/23 08:59 Last Admin: 05/31/23 08:20 Dose: 1 mg Buspirone HCl (Buspirone 5 Mg Tab) 10 mg PO TID [facility] Stop: 06/28/23 08:59 Last Admin: 05/31/23 08:19 Dose: 10 mg Carvedilol (Carvedilol 12.5 Mg Tab) 12.5 mg PO BIDM [facility] Stop: 06/28/23 07:59 Last Admin: 05/31/23 08:21 Dose: 12.5 mg Dextrose (Dextrose 50% 50 Ml Syringe) 25 - 50 ml IV UD PRN; Protocol PRN Reason: Hypoglycemia Protocol Stop: 06/28/23 07:26 Enoxaparin Sodium (Enoxaparin Inj 40 Mg/0.4 Ml Syr) 40 mg SQ Q24H [facility] Stop: 06/28/23 08:59 Last Admin: 05/31/23 08:21 Dose: 40 mg Fluticasone Furoate (Fluticasone Furoate 100mcg 14 Puffs/Inhaler) 1 puffs INH DAILY [facility] Stop: 06/28/23 08:59 Last Admin: 05/31/23 08:21 Dose: 1 puffs Furosemide (Furosemide 20 Mg Tab) 20 mg PO QAM [facility] Stop: 06/28/23 15:29 Last Admin: 05/31/23 08:20 Dose: 20 mg Glucagon (Glucagon For Inj 1 Mg Vial) 1 mg SQ UD PRN; Protocol PRN Reason: Hypoglycemia Protocol Stop: 06/28/23 07:26 Glucose (Glucose 10 Tab/Tube) 4 - 8 tab PO UD PRN; Protocol PRN Reason: Hypoglycemia Treatment Stop: 06/28/23 07:26 Glucose (Glucose 40% Gel 15 Gm Tube) 15 - 30 gm PO UD PRN; Protocol PRN Reason: Hypoglycemia Protocol Stop: 06/28/23 07:26 Guaifenesin (Guaifenesin 600 Mg Tabcr) 600 mg PO Q12 DANA Stop: 06/28/23 15:29 Last Admin: 05/31/23 08:18 Dose: 600 mg Hydroxyzine HCl (Hydroxyzine Hcl 25 Mg Tab) 50 mg PO BID PRN PRN Reason: Anxiety Stop: 06/28/23 07:26 Last Admin: 05/30/23 20:43 Dose: 50 mg Methylprednisolone 40 mg/ (Syringe) 0.64 mls @ 1.5 mls/min IV TID DANA Stop: 06/28/23 08:59 Last Admin: 05/31/23 08:32 Dose: 1.5 mls/min Insulin Aspart (Insulin Aspart Per Unit Charge) 0 units SC ACHS DANA Stop: 06/28/23 07:29 Last Admin: 05/31/23 12:53 Dose: 3 units Levothyroxine Sodium (Levothyroxine Sodium 137 Mcg Tablet) 137 mcg PO DAILYBB DANA Stop: 06/28/23 07:44 Last Admin: 05/31/23 05:41 Dose: 137 mcg Lisinopril (Lisinopril 40 Mg Tab) 40 mg PO DAILY [facility] Stop: 06/28/23 08:59 Last Admin: 05/31/23 08:19 Dose: 40 mg Lovastatin (Lovastatin 20 Mg Tab) 40 mg PO DAILY [facility] Stop: 06/28/23 08:59 Last Admin: 05/31/23 08:19 Dose: 40 mg Miscellaneous (Loxapine 50mg--Order Awaiting Action) 1 each N/A QS [facility] Stop: 06/28/23 07:59 Last Admin: 05/31/23 08:00 Dose: Not Given Miscellaneous (Carbohydrates For Hypoglycemia ) 15 - 30 gm PO UD PRN PRN Reason: Hypoglycemia Protocol Stop: 06/28/23 07:26 Montelukast Sodium (Montelukast Sodium 10 Mg Tablet) 10 mg PO HS [facility] Stop: 06/28/23 20:59 Last Admin: 05/30/23 20:24 Dose: 10 mg Nitroglycerin (Nitroglycerin Sl 0.4 Mg/Tab Tab) 0.4 mg SL Q5M PRN PRN Reason: Chest Pain Stop: 06/28/23 07:26 Sertraline HCl (Sertraline Hcl 100 Mg Tablet) 100 mg PO DAILY [facility] Stop: 06/28/23 08:59 Last Admin: 05/31/23 08:20 Dose: 100 mg Umeclidinium/Vilanterol (Umeclidinium/Vilanterol 62.5/25mcg 7 Puffs/Inhaler) 1 puffs INH DAILY [facility] Stop: 06/28/23 08:59 Last Admin: 05/31/23 08:23 Dose: 1 puffs
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
[2023-05-31] MEDS ORDERED: OPTIRAY 320 125ml IV ONE (16:33)
--- NOTE | 2023-05-31 16:59 | CT Scan Report ---
CHEST CTA for PULMONARY ARTERIES CT DOSE: 961.52 mGy.cm HISTORY: Shortness of breath. TECHNIQUE: Multiaxial CT images of the chest were performed following the intravenous administration of contrast to evaluate the pulmonary arteries. 3D/Maximal intensity projection images were also obta ined. Sagittal and coronal reformations were also reviewed. A dose lowering technique was utilized a dhering to the principles of ALARA. COMPARISON STUDY: Chest CTA 07/23/2013. FINDINGS: Normal caliber thoracic aorta with no evidence for a dissection. The heart is normal in siz e. No pleural or pericardial effusions. No filling defects within the pulmonary arteries to suggest a pulmonary embolus. No significant mediastinal or hilar lymphadenopathy. Limited views the upper abdo men demonstrate stable metallic density within the right hepatic lobe and a normal spleen. Mild adren al gland thickening is likely chronic. Normal esophagus. Hypodense bilateral renal lesions are incomp letely characterized on this study but favor cysts. Old, healed right-sided rib fractures. Stable sca rring within the right lung base. Punctate metallic density within the right posterior pleura, unchan ged. No pneumothorax. Mild emphysema. There is mild central bronchial wall thickening. A few partiall y opacified distal bilateral lower lobe bronchi. Patchy groundglass airspace opacities within the lef t upper and lower lobes consistent with a pneumonia. IMPRESSION: 1. No evidence for a pulmonary embolus. 2. Patchy groundglass airspace opacities within the left upper and lower lobes. This is consistent wi th a pneumonia. 3. Bronchial wall thickening likely representing a bronchitis. 4. Mild emphysema. 5. Stable scarring within the right lung base. 6. Additional findings as described above. ACT 112: Negative or not required by law. Electronically signed by: Thomas Farias M.D. 05/31/2023 4:57 PM
[2023-05-31] MEDS: cefTRIAXone SODIUM 2,000 MG in DEXTROSE 5 % MINI-B 50 ML IV SCH (17:43)
[2023-05-31] MEDS: FORMOTEROL 20 MCG/2 ML VIAL NEB SCH (19:41)
[2023-05-31] MEDS: BUDESONIDE 0.5 MG/2 ML VIAL (PULMICORT) NEB SCH (19:41)
[2023-05-31] MEDS: SODIUM CHLOR 7% 4 ML NEB NEB SCH (19:41)
[2023-05-31] MEDS: DOXYCYCLINE HYCLATE 100 MG CAP PO SCH (21:04)
[2023-05-31] MEDS: MONTELUKAST SODIUM 10 MG TABLET PO SCH (21:05)
[2023-06-01] MEDS: LEVOTHYROXINE SODIUM 137 MCG TABLET PO SCH (06:07)
[2023-06-01] MEDS: FORMOTEROL 20 MCG/2 ML VIAL NEB SCH ×2 (06:56→19:15)
[2023-06-01] MEDS: BUDESONIDE 0.5 MG/2 ML VIAL (PULMICORT) NEB SCH ×2 (06:56→19:15)
[2023-06-01] MEDS: SODIUM CHLOR 7% 4 ML NEB NEB SCH ×2 (06:56→19:15)
[2023-06-01] MEDS: ALBUT/IPRATROP 3MG/0.5MG NEB 3 ML VIAL NEB SCH ×4 (06:56→19:15)
--- NOTE | 2023-06-01 07:57 | Hospitalist Progress Note ---
Date of Service June 01, 2023 Assessment & Plan (1) COPD exacerbation: Plan: 63 yo M w/ hypertension, hypothyroidism, prediabetes, COPD, moderate persistent asthma, history of hypertrophic obstructive cardiomyopathy, grade 1 diastolic dysfunction, chronic respiratory failure with hypoxia on home oxygen therapy as per [facility] but patient states that he is not on oxygen at home. Morbid obesity, alcoholic dependence in remission, Schizoaffective disorder, medical marijuana use, comes in because of shortness of breath going on for last few days. Acute hypoxic resp. failure COPD/asthma exacerbation + RSV DuoNebs scheduled and as needed IV Solu-Medrol 40 mg 3 times daily Procalcitonin negative Closely monitor Two-step home oxygen evaluation prior to discharge 05/31 increased oxygen requirement now on 8L sputum cultx pending repeat CXR w/o changes from previous CT PE - no PE, however poss. PNA, started ceftriaxone and doxy. Pulmonary consulted - transition Breo elliptica to nebulized formoterol and budesonide while in the hospital. Continue DuoNebs every 4 hours. Stopping IV methylprednisone today and transitioning to p.o. prednisone. Cont. hypertonic saline twice daily and percussive vest therapy 4 times daily to help promote mucociliary clearance as the patient is having cough with productive sputum and at times has difficulty expectorating mucus. Echo results reviewed without evidence of RV dysfunction. Grade 1 diastolic dysfunction noted. EF normal. BNP on admission was unremarkable. 06/01 oxygen requirement essentially unchanged at this time, currently on 9L RSV droplet precautions Supportive care History of hypertrophic obstructive cardiomyopathy Grade 1 diastolic dysfunction Has lower extremity edema on admission Had mild chest discomfort that resolved now serial cardiac enzymes negative echo -EF 65 to 70%. There is mild concentric LVH. Grade 1 diastolic dysfunction. Poorly visualized valvular anatomy without significant stenosis or regurg. Hypertension Lisinopril, Coreg and amlodipine Will monitor Hypothyroidism cont Synthyroid Hyperlipidemia On statin Diabetes Hold metformin sliding scale Will monitor Schizoaffective disorder Continue home meds DVT prophylaxis Lovenox Disposition Med/tele Full code Admission and Anticipated Discharge Date Admission Date: May 29, 2023 Subjective Pt seen in follow up of hypoxia, copd exacerbation, +RSV Sitting up in chair, in no acute distress, on supplemental oxygen Previously he was feeling much better was on 3L, however then yesterday on 8L and not feeling so well. CXR essentially unchanged. CT PE negat. for PE. Pulm. medicine consulted - pt is now able to bring up more mucus. oxygen requirement essentially unchanged, currently on 9L sputum cultx pending No fevers chills or chest pain Review of Systems Review of Systems: All systems reviewed & are unremarkable except as noted in Subjective Physical Exam Physical Exam: General- obese M in NAD, on suppl. O2 9L Head- atraumatic Eyes- PERRL. Neck- supple, no JVD. Lungs- + mild rhonchi and mild b/l exp. wheezing Heart- regular rhythm; no murmur, no gallop. Abdomen- normal bowel sounds, soft, nontender, no distension. + obese abdomen Extremities- trace lower extremity edema present. No erythema seen. Neuro- alert, oriented x 3; PERRL, no facial palsy; no dysarthria; moves extremities. Skin- warm & dry Results & Data Results & Data Vital Signs (Past 12 Hours) Vital Signs Temp Pulse Pulse Resp BP Pulse Ox O2 Del Method 06/01/23 07:18 36.7 C 78 18 135/66 92 High Flow Nasal Cannula 06/01/23 07:15 71 06/01/23 06:56 72 20 86 L Nasal Cannula 06/01/23 04:00 36.9 C 61 18 147/77 H 91 High Flow Nasal Cannula 05/31/23 23:57 High Flow Nasal Cannula 05/31/23 22:50 37.0 C 70 20 148/77 H 97 High Flow Nasal Cannula 05/31/23 21:58 65 O2 Flow Rate 06/01/23 07:18 11 06/01/23 07:15 06/01/23 06:56 9 06/01/23 04:00 9 05/31/23 23:57 9 05/31/23 22:50 9 05/31/23 21:58 Laboratory Results 06/01/23 06/01/23 05/31/23 Range/Units 08:07 07:28 20:23 WBC 14.57 H (4.8-10.8) K/ul RBC 5.91 (4.70-6.10) M/uL Hgb 16.5 (14.0-18.0) g/dl Hct 50.2 (42.0-52.0) % MCV 84.9 (80.0-100.0) fL MCH 27.9 (25.0-34.0) pg MCHC 32.9 (32.0-36.0) g/dL RDW Std Deviation 46.9 H (36.4-46.3) fL RDW Coeff of Lazaro 15.4 H (11.5-14.5) % Plt Count 299 (130-400) K/uL MPV 8.8 L (9.4-12.4) fL Sodium 135 L (136-145) mmol/L Potassium 4.1 (3.5-5.1) mmol/L Chloride 98 (98-107) mmol/L Carbon Dioxide 31 (21-32) mmol/L Anion Gap 6 (3-11) BUN 19 (6-23) mg/dl Creatinine 0.66 (0.6-1.4) mg/dl Est Cr Clr Drug Dosing 160.1 ml/min Est GFR ( Amer) 119.3 ml/min Est GFR (Non-Af Amer) 102.9 ml/min BUN/Creatinine Ratio 28.8 H (10-20) Glucose 121 H (70-99(Fasting)) mg/dl POC Glucose 121 H 136 H (70-99) mg/dl Calcium 9.1 (8.6-10.3) mg/dl Phosphorus 3.7 (2.5-4.9) mg/dl Magnesium 2.2 (1.7-2.4) mg/dl Procalcitonin (0-0.5) ng/ml 05/31/23 05/31/23 05/31/23 Range/Units 17:10 17:02 12:16 WBC (4.8-10.8) K/ul RBC (4.70-6.10) M/uL Hgb (14.0-18.0) g/dl Hct (42.0-52.0) % MCV (80.0-100.0) fL MCH (25.0-34.0) pg MCHC (32.0-36.0) g/dL RDW Std Deviation (36.4-46.3) fL RDW Coeff of Lazaro (11.5-14.5) % Plt Count (130-400) K/uL MPV (9.4-12.4) fL Sodium (136-145) mmol/L Potassium (3.5-5.1) mmol/L Chloride (98-107) mmol/L Carbon Dioxide (21-32) mmol/L Anion Gap (3-11) BUN (6-23) mg/dl Creatinine (0.6-1.4) mg/dl Est Cr Clr Drug Dosing ml/min Est GFR ( Amer) ml/min Est GFR (Non-Af Amer) ml/min BUN/Creatinine Ratio (10-20) Glucose (70-99(Fasting)) mg/dl POC Glucose 115 H 114 H (70-99) mg/dl Calcium (8.6-10.3) mg/dl Phosphorus (2.5-4.9) mg/dl Magnesium (1.7-2.4) mg/dl Procalcitonin < 0.05 (0-0.5) ng/ml Medications Administered Current Inpatient Medications Acetaminophen (Acetaminophen 325 Mg Tab) 650 mg PO Q4H PRN PRN Reason: Pain or Fever Stop: 06/28/23 07:26 Albuterol (Albut/Ipratrop 3mg/0.5mg Neb 3 Ml Vial) 3 ml NEB QIDR [facility]; Protocol Stop: 06/28/23 07:26 Last Admin: 06/01/23 06:56 Dose: Not Given Amlodipine Besylate (Amlodipine Besylate 5 Mg Tab) 5 mg PO DAILY [facility] Stop: 06/28/23 08:59 Last Admin: 05/31/23 08:20 Dose: 5 mg Benztropine Mesylate (Benztropine Mesylate 1 Mg Tab) 1 mg PO DAILY [facility] Stop: 06/28/23 08:59 Last Admin: 05/31/23 08:20 Dose: 1 mg Budesonide (Budesonide 0.5 Mg/2 Ml Vial (Pulmicort)) 0.5 mg NEB BIDR [facility] Stop: 06/30/23 18:59 Last Admin: 06/01/23 06:56 Dose: 0.5 mg Buspirone HCl (Buspirone 5 Mg Tab) 10 mg PO TID [facility] Stop: 06/28/23 08:59 Last Admin: 05/31/23 21:04 Dose: 10 mg Carvedilol (Carvedilol 12.5 Mg Tab) 12.5 mg PO BIDM [facility] Stop: 06/28/23 07:59 Last Admin: 05/31/23 17:48 Dose: 12.5 mg Dextrose (Dextrose 50% 50 Ml Syringe) 25 - 50 ml IV UD PRN; Protocol PRN Reason: Hypoglycemia Protocol Stop: 06/28/23 07:26 Doxycycline Hyclate (Doxycycline Hyclate 100 Mg Cap) 100 mg PO BID [facility] Stop: 06/07/23 20:59 Last Admin: 05/31/23 21:04 Dose: 100 mg Enoxaparin Sodium (Enoxaparin Inj 40 Mg/0.4 Ml Syr) 40 mg SQ Q24H DANA Stop: 06/28/23 08:59 Last Admin: 05/31/23 08:21 Dose: 40 mg Formoterol Fumarate (Formoterol 20 Mcg/2 Ml Vial) 20 mcg NEB BIDR [facility] Stop: 06/30/23 18:59 Last Admin: 06/01/23 06:56 Dose: 20 mcg Furosemide (Furosemide 20 Mg Tab) 20 mg PO QAM [facility] Stop: 06/28/23 15:29 Last Admin: 05/31/23 08:20 Dose: 20 mg Glucagon (Glucagon For Inj 1 Mg Vial) 1 mg SQ UD PRN; Protocol PRN Reason: Hypoglycemia Protocol Stop: 06/28/23 07:26 Glucose (Glucose 10 Tab/Tube) 4 - 8 tab PO UD PRN; Protocol PRN Reason: Hypoglycemia Treatment Stop: 06/28/23 07:26 Glucose (Glucose 40% Gel 15 Gm Tube) 15 - 30 gm PO UD PRN; Protocol PRN Reason: Hypoglycemia Protocol Stop: 06/28/23 07:26 Guaifenesin (Guaifenesin 600 Mg Tabcr) 600 mg PO Q12 DANA Stop: 06/28/23 15:29 Last Admin: 05/31/23 21:05 Dose: 600 mg Hydroxyzine HCl (Hydroxyzine Hcl 25 Mg Tab) 50 mg PO BID PRN PRN Reason: Anxiety Stop: 06/28/23 07:26 Last Admin: 05/30/23 20:43 Dose: 50 mg Methylprednisolone 40 mg/ (Syringe) 0.64 mls @ 1.5 mls/min IV TID [facility] Stop: 06/28/23 08:59 Last Admin: 05/31/23 21:04 Dose: 1.5 mls/min Ceftriaxone Sodium 2,000 mg/ (Dextrose) 50 mls @ 100 mls/hr IV Q24H [facility]; Protocol Stop: 06/07/23 17:14 Last Infusion: 05/31/23 18:19 Dose: Infused Insulin Aspart (Insulin Aspart Per Unit Charge) 0 units SC ACHS [facility] Stop: 06/28/23 07:29 Last Admin: 05/31/23 21:19 Dose: Not Given Levothyroxine Sodium (Levothyroxine Sodium 137 Mcg Tablet) 137 mcg PO DAILYBB [facility] Stop: 06/28/23 07:44 Last Admin: 06/01/23 06:07 Dose: 137 mcg Lisinopril (Lisinopril 40 Mg Tab) 40 mg PO DAILY [facility] Stop: 06/28/23 08:59 Last Admin: 05/31/23 08:19 Dose: 40 mg Lovastatin (Lovastatin 20 Mg Tab) 40 mg PO DAILY [facility] Stop: 06/28/23 08:59 Last Admin: 05/31/23 08:19 Dose: 40 mg Miscellaneous (Loxapine 50mg--Order Awaiting Action) 1 each N/A QS [facility] Stop: 06/28/23 07:59 Last Admin: 05/31/23 23:07 Dose: Not Given Miscellaneous (Carbohydrates For Hypoglycemia ) 15 - 30 gm PO UD PRN PRN Reason: Hypoglycemia Protocol Stop: 06/28/23 07:26 Montelukast Sodium (Montelukast Sodium 10 Mg Tablet) 10 mg PO HS [facility] Stop: 06/28/23 20:59 Last Admin: 05/31/23 21:05 Dose: 10 mg Nitroglycerin (Nitroglycerin Sl 0.4 Mg/Tab Tab) 0.4 mg SL Q5M PRN PRN Reason: Chest Pain Stop: 06/28/23 07:26 Sertraline HCl (Sertraline Hcl 100 Mg Tablet) 100 mg PO DAILY [facility] Stop: 06/28/23 08:59 Last Admin: 05/31/23 08:20 Dose: 100 mg Sodium Chloride (Sodium Chlor 7% 4 Ml Neb) 4 ml NEB BIDR [facility] Stop: 06/30/23 18:59 Last Admin: 06/01/23 06:56 Dose: 4 ml
[2023-06-01] MEDS: ENOXAPARIN INJ 40 MG/0.4 ML SYR SQ SCH (08:04)
[2023-06-01] MEDS: methylPREDNISolone 40 MG in SYRINGE 0 ML IV SCH (08:04)
[2023-06-01 08:05] LABS: Hematocrit (blood only) 50.2 % (42.0-52.0); Hemoglobin 16.5 g/dl (14.0-18.0); Mean Corpuscular Hemoglobin 27.9 pg (25.0-34.0); Mean Corpuscular Hgb Conc 32.9 g/dL (32.0-36.0); Mean Corpuscular Volume 84.9 fL (80.0-100.0); Mean Platelet Volume 8.8 fL (9.4-12.4); Platelet Count 299 K/uL (130-400); RDW Coefficient of Variation 15.4 % (11.5-14.5); RDW Standard Deviation 46.9 fL (36.4-46.3); Red Blood Count 5.91 M/uL (4.70-6.10); White Blood Count 14.57 K/ul (4.8-10.8)
[2023-06-01] MEDS: DOXYCYCLINE HYCLATE 100 MG CAP PO SCH ×2 (08:05→21:21)
[2023-06-01] MEDS: guaiFENesin 600 MG TABCR PO SCH ×2 (08:05→21:21)
[2023-06-01] MEDS: carvediloL 12.5 MG TAB PO SCH ×2 (08:05→17:03)
[2023-06-01] MEDS: busPIRone 5 MG TAB PO SCH ×3 (08:05→21:21)
[2023-06-01] MEDS: FUROSEMIDE 20 MG TAB PO SCH (08:06)
[2023-06-01] MEDS: BENZTROPINE MESYLATE 1 MG TAB PO SCH (08:06)
[2023-06-01] MEDS: amLODIPine BESYLATE 5 MG TAB PO SCH (08:06)
[2023-06-01] MEDS: LOVASTATIN 20 MG TAB PO SCH (08:06)
[2023-06-01] MEDS: lisinopril 40 MG TAB PO SCH (08:07)
[2023-06-01] MEDS: SERTRALINE HCL 100 MG TABLET PO SCH (08:07)
[2023-06-01 08:21] LABS: Calcium 9.1 mg/dl (8.6-10.3); Magnesium 2.2 mg/dl (1.7-2.4); Potassium 4.1 mmol/L (3.5-5.1)
[2023-06-01 08:26] LABS: BUN Creatinine Ratio 28.8 (10-20); Creatinine Clr Calc Pharmacy 160.1 ml/min; Est GFR (African American) 119.3 ml/min; Est GFR (Non-African American) 102.9 ml/min; Phosphorus 3.7 mg/dl (2.5-4.9)
[2023-06-01] MEDS: INSULIN ASPART PER UNIT CHARGE SC SCH ×4 (09:05→21:22)
--- NOTE | 2023-06-01 11:25 | Pulmonology Progress Note ---
Date of Service June 01, 2023 Assessment & Plan (1) COPD exacerbation: (2) Respiratory syncytial virus (RSV): (3) Bronchospasm: (4) Hypoxemia: Plan 63-year-old male with a past medical history of obesity, hypothyroidism, intellectual disability and COPD who presented to the hospital with RSV infection and COPD exacerbation. CT chest completed 03/31/2024 without evidence of PE. Patchy groundglass opacity seen in the left upper and left lower lobe consistent with viral pneumonia. Bronchial wall thickening noted bilaterally. Procalcitonin negative x 2 this admission. Sputum cultures have been negative thus far. Patient without fever. I do not think that there is a role for antibiotic therapy at this time. Continue efforts at mucociliary clearance with percussive vest therapy, flutter valve, hypertonic saline and nebulized treatments. Continue nebulized bud esonide and formoterol. IV Solu-Medrol discontinued. 40 mg prednisone daily initiated which could be stopped after approximately 5 days. I suspect the patient has an element of chronic hypoxemic respiratory failure that was previously unidentified from obesity and COPD. He does have significant oxygen requirements at this time which will hopefully be weaned down further as the day progresses. Maintain sat goal of above 90% Patient will need outpatient PFTs once he recovers from his acute illness and further workup of asthma/COPD. Echo results reviewed without evidence of RV dysfunction. Grade 1 diastolic dysfunction noted. EF normal. BNP on admission was unremarkable. Admission and Anticipated Discharge Date Admission Date: May 29, 2023 Subjective Patient is sitting up in the chair. Currently receiving percussive vest therapy. He feels that that is helping significantly and he is able to cough up some light yellow secretions. He denies any fevers. He feels less short of breath today than yesterday. His oxygen requirements remain relatively unchanged. Review of Systems Review of Systems: All systems reviewed & are unremarkable except as noted in HPI & below Physical Exam Physical Exam: Constitutional: Patient appears to be of their stated age. Obese. Eyes: Pupils are equal round and reactive to light. Conjunctivae are normal. Anicteric sclera. Ears nose, mouth and throat: Mallampati class 2. Normal posterior oropharynx. Uvula is midline. Poor dentition. Neck: Trachea is midline. Visual inspection is normal. Respiratory: Wheezing improved on exam today. Prolonged phase of exhalation Cardiovascular: Regular rate and rhythm. No murmurs. No edema. Gastrointestinal: Normal bowel sounds, soft, nontender and nondistended. No hepatosplenomegaly noted. Musculoskeletal: No cyanosis. Patient is able to move all extremities. Strength is 5 out of 5 in the upper and lower extremities. Skin: No rashes, warm dry and intact. Neurologic: No obvious focal neurological deficits seen. Psychiatric: Alert and oriented x3 with a euthymic affect. Results & Data Results & Data Vital Signs (Past 12 Hours) Vital Signs Temp Pulse Pulse Resp BP Pulse Ox Pulse Ox 06/01/23 10:57 69 18 93 06/01/23 09:45 06/01/23 07:18 36.7 C 78 18 135/66 92 06/01/23 07:15 71 06/01/23 07:00 92 06/01/23 06:56 72 20 86 L 06/01/23 04:00 36.9 C 61 18 147/77 H 91 05/31/23 23:57 O2 Del Method O2 Del Method O2 Flow Rate O2 Flow Rate 06/01/23 10:57 Nasal Cannula 11 06/01/23 09:45 High Flow Nasal Cannula 11 06/01/23 07:18 High Flow Nasal Cannula 11 06/01/23 07:15 06/01/23 07:00 High Flow Nasal Cannula 11 06/01/23 06:56 Nasal Cannula 9 06/01/23 04:00 High Flow Nasal Cannula 9 05/31/23 23:57 High Flow Nasal Cannula 9 PG Care Time/CCT Total # of Minutes Spent Total Time Spent with Patient: Total time spent is greater than 50% in coordination of care (as documented) at patient's floor/unit and/or counseling patient: Coding Level of Care Code 87492 SUB INP/OBS CARE 2/35MIN Diagnoses COPD exacerbation J44.1 Respiratory syncytial virus (RSV) B33.8 Bronchospasm J98.01 Hypoxemia R09.02
[2023-06-01] MEDS: cefTRIAXone SODIUM 2,000 MG in DEXTROSE 5 % MINI-B 50 ML IV SCH (17:05)
[2023-06-01] MEDS: MONTELUKAST SODIUM 10 MG TABLET PO SCH (21:20)
[2023-06-02] MEDS: LEVOTHYROXINE SODIUM 137 MCG TABLET PO SCH (05:55)
[2023-06-02 06:42] LABS: Hematocrit (blood only) 50.5 % (42.0-52.0); Hemoglobin 16.3 g/dl (14.0-18.0); Mean Corpuscular Hemoglobin 27.7 pg (25.0-34.0); Mean Corpuscular Hgb Conc 32.3 g/dL (32.0-36.0); Mean Corpuscular Volume 85.7 fL (80.0-100.0); Mean Platelet Volume 8.6 fL (9.4-12.4); Platelet Count 255 K/uL (130-400); RDW Coefficient of Variation 15.1 % (11.5-14.5); RDW Standard Deviation 46.7 fL (36.4-46.3); Red Blood Count 5.89 M/uL (4.70-6.10); White Blood Count 11.71 K/ul (4.8-10.8)
[2023-06-02] MEDS: FORMOTEROL 20 MCG/2 ML VIAL NEB SCH ×2 (07:04→19:29)
[2023-06-02] MEDS: SODIUM CHLOR 7% 4 ML NEB NEB SCH ×2 (07:04→19:29)
[2023-06-02] MEDS: BUDESONIDE 0.5 MG/2 ML VIAL (PULMICORT) NEB SCH ×2 (07:04→19:29)
[2023-06-02] MEDS: ALBUT/IPRATROP 3MG/0.5MG NEB 3 ML VIAL NEB SCH ×4 (07:04→19:29)
[2023-06-02 07:15] LABS: BUN Creatinine Ratio 26.6 (10-20); Creatinine Clr Calc Pharmacy 164.7 ml/min; Est GFR (African American) 120.8 ml/min; Est GFR (Non-African American) 104.2 ml/min; Magnesium 2.1 mg/dl (1.7-2.4); Phosphorus 2.6 mg/dl (2.5-4.9); Potassium 3.8 mmol/L (3.5-5.1)
--- NOTE | 2023-06-02 08:28 | Hospitalist Progress Note ---
Date of Service June 02, 2023 Assessment & Plan (1) COPD exacerbation: Plan: 63 yo M w/ hypertension, hypothyroidism, prediabetes, COPD, moderate persistent asthma, history of hypertrophic obstructive cardiomyopathy, grade 1 diastolic dysfunction, chronic respiratory failure with hypoxia on home oxygen therapy as per [facility] but patient states that he is not on oxygen at home. Morbid obesity, alcoholic dependence in remission, Schizoaffective disorder, medical marijuana use, comes in because of shortness of breath going on for last few days. Acute hypoxic resp. failure COPD/asthma exacerbation + RSV DuoNebs scheduled and as needed IV Solu-Medrol 40 mg 3 times daily Procalcitonin negative Closely monitor Two-step home oxygen evaluation prior to discharge 05/31 increased oxygen requirement from 3L previously to 8L sputum cultx unrevealing repeat CXR w/o changes from previous CT PE - no PE, however poss. PNA, started ceftriaxone and doxy. Pulmonary consulted - transitioned Breo elliptica to nebulized formoterol and budesonide while in the hospital. Continue DuoNebs. Cont. p.o. prednisone. Cont. hypertonic saline. Cont. antibiotics. Will need sleep study as outpt. Repeat CT chest in 2 months. 06/02 currently on 12 L of O2 RSV droplet precautions Supportive care History of hypertrophic obstructive cardiomyopathy Grade 1 diastolic dysfunction Has lower extremity edema on admission Had mild chest discomfort that resolved now serial cardiac enzymes negative echo -EF 65 to 70%. There is mild concentric LVH. Grade 1 diastolic dysfunction. Poorly visualized valvular anatomy without significant stenosis or regurg. Hypertension Lisinopril, Coreg and amlodipine Will monitor Hypothyroidism cont Synthyroid Hyperlipidemia On statin Diabetes Hold metformin sliding scale Will monitor Schizoaffective disorder Continue home meds DVT prophylaxis Lovenox Disposition Med/tele Full code Admission and Anticipated Discharge Date Admission Date: May 29, 2023 Subjective Pt seen in follow up of hypoxia, copd exacerbation, +RSV Sitting up in chair, in no acute distress, on supplemental oxygen Previously he was feeling much better was on 3L, however then his oxygen requirement increased significantly. CT PE negat. for PE. Pulm. medicine consulted - pt is now able to bring up more mucus. currently on 12L sputum cultx unrevealing No fevers chills or chest pain but says he is feeling very weak. says he had a bad night. Review of Systems Review of Systems: All systems reviewed & are unremarkable except as noted in Subjective Physical Exam Physical Exam: General- obese M in NAD, on suppl. O2 12L Head- atraumatic Eyes- PERRL. Neck- supple, no JVD. Lungs- + mild rhonchi and mild b/l exp. wheezing Heart- regular rhythm; no murmur, no gallop. Abdomen- normal bowel sounds, soft, nontender, no distension. + obese abdomen Extremities- trace lower extremity edema present. No erythema seen. Neuro- alert, oriented x 3; PERRL, no facial palsy; no dysarthria; moves extremities. Skin- warm & dry Results & Data Results & Data Vital Signs (Past 12 Hours) Vital Signs Temp Pulse Pulse Resp BP Pulse Ox O2 Del Method 06/02/23 07:32 High Flow Nasal Cannula 06/02/23 07:04 58 L 18 94 Nasal Cannula 06/02/23 06:57 71 06/02/23 04:00 37.0 C 60 20 132/79 93 High Flow Nasal Cannula 06/02/23 03:18 High Flow Nasal Cannula 06/01/23 23:00 37.0 C 64 18 135/72 94 High Flow Nasal Cannula 06/01/23 22:03 59 L O2 Flow Rate 06/02/23 07:32 11 06/02/23 07:04 11 06/02/23 06:57 06/02/23 04:00 11 06/02/23 03:18 11 06/01/23 23:00 11 06/01/23 22:03 Laboratory Results 06/02/23 06/02/23 06/01/23 Range/Units 08:16 06:03 20:47 WBC 11.71 H (4.8-10.8) K/ul RBC 5.89 (4.70-6.10) M/uL Hgb 16.3 (14.0-18.0) g/dl Hct 50.5 (42.0-52.0) % MCV 85.7 (80.0-100.0) fL MCH 27.7 (25.0-34.0) pg MCHC 32.3 (32.0-36.0) g/dL RDW Std Deviation 46.7 H (36.4-46.3) fL RDW Coeff of Lazaro 15.1 H (11.5-14.5) % Plt Count 255 (130-400) K/uL MPV 8.6 L (9.4-12.4) fL Sodium 137 (136-145) mmol/L Potassium 3.8 (3.5-5.1) mmol/L Chloride 95 L (98-107) mmol/L Carbon Dioxide 38 H (21-32) mmol/L Anion Gap 4 (3-11) BUN 17 (6-23) mg/dl Creatinine 0.64 (0.6-1.4) mg/dl Est Cr Clr Drug Dosing 164.7 ml/min Est GFR ( Amer) 120.8 ml/min Est GFR (Non-Af Amer) 104.2 ml/min BUN/Creatinine Ratio 26.6 H (10-20) Glucose 99 (70-99(Fasting)) mg/dl POC Glucose 170 H 119 H (70-99) mg/dl Calcium 9.0 (8.6-10.3) mg/dl Phosphorus 2.6 D (2.5-4.9) mg/dl Magnesium 2.1 (1.7-2.4) mg/dl 06/01/23 06/01/23 Range/Units 16:56 12:06 WBC (4.8-10.8) K/ul RBC (4.70-6.10) M/uL Hgb (14.0-18.0) g/dl Hct (42.0-52.0) % MCV (80.0-100.0) fL MCH (25.0-34.0) pg MCHC (32.0-36.0) g/dL RDW Std Deviation (36.4-46.3) fL RDW Coeff of Lazaro (11.5-14.5) % Plt Count (130-400) K/uL MPV (9.4-12.4) fL Sodium (136-145) mmol/L Potassium (3.5-5.1) mmol/L Chloride (98-107) mmol/L Carbon Dioxide (21-32) mmol/L Anion Gap (3-11) BUN (6-23) mg/dl Creatinine (0.6-1.4) mg/dl Est Cr Clr Drug Dosing ml/min Est GFR ( Amer) ml/min Est GFR (Non-Af Amer) ml/min BUN/Creatinine Ratio (10-20) Glucose (70-99(Fasting)) mg/dl POC Glucose 117 H 131 H (70-99) mg/dl Calcium (8.6-10.3) mg/dl Phosphorus (2.5-4.9) mg/dl Magnesium (1.7-2.4) mg/dl Medications Administered Current Inpatient Medications Acetaminophen (Acetaminophen 325 Mg Tab) 650 mg PO Q4H PRN PRN Reason: Pain or Fever Stop: 06/28/23 07:26 Albuterol (Albut/Ipratrop 3mg/0.5mg Neb 3 Ml Vial) 3 ml NEB QIDR [facility]; Protocol Stop: 06/28/23 07:26 Last Admin: 06/02/23 07:04 Dose: Not Given Amlodipine Besylate (Amlodipine Besylate 5 Mg Tab) 5 mg PO DAILY [facility] Stop: 06/28/23 08:59 Last Admin: 06/01/23 08:06 Dose: 5 mg Benztropine Mesylate (Benztropine Mesylate 1 Mg Tab) 1 mg PO DAILY [facility]CLUDES [facility] Stop: 06/28/23 08:59 Last Admin: 06/01/23 08:06 Dose: 1 mg Budesonide (Budesonide 0.5 Mg/2 Ml Vial (Pulmicort)) 0.5 mg NEB BIDR [facility]CLUDES [facility] Stop: 06/30/23 18:59 Last Admin: 06/02/23 07:04 Dose: 0.5 mg Buspirone HCl (Buspirone 5 Mg Tab) 10 mg PO TID [facility]CLUD[facility] Stop: 06/28/23 08:59 Last Admin: 06/01/23 21:21 Dose: 10 mg Carvedilol (Carvedilol 12.5 Mg Tab) 12.5 mg PO BIDM COUNT [facility]CLUDES [facility] Stop: 06/28/23 07:59 Last Admin: 06/01/23 17:03 Dose: 12.5 mg Dextrose (Dextrose 50% 50 Ml Syringe) 25 - 50 ml IV UD PRN; Protocol PRN Reason: Hypoglycemia Protocol Stop: 06/28/23 07:26 Doxycycline Hyclate (Doxycycline Hyclate 100 Mg Cap) 100 mg PO BID COUNT [facility]CLUDES [facility] Stop: 06/07/23 20:59 Last Admin: 06/01/23 21:21 Dose: 100 mg Enoxaparin Sodium (Enoxaparin Inj 40 Mg/0.4 Ml Syr) 40 mg SQ Q24H [facility] Stop: 06/28/23 08:59 Last Admin: 06/01/23 08:04 Dose: 40 mg Formoterol Fumarate (Formoterol 20 Mcg/2 Ml Vial) 20 mcg NEB BIDR COUNT [facility]CLUDES [facility] Stop: 06/30/23 18:59 Last Admin: 06/02/23 07:04 Dose: 20 mcg Furosemide (Furosemide 20 Mg Tab) 20 mg PO QAM [facility] Stop: 06/28/23 15:29 Last Admin: 06/01/23 08:06 Dose: 20 mg Glucagon (Glucagon For Inj 1 Mg Vial) 1 mg SQ UD PRN; Protocol PRN Reason: Hypoglycemia Protocol Stop: 06/28/23 07:26 Glucose (Glucose 10 Tab/Tube) 4 - 8 tab PO UD PRN; Protocol PRN Reason: Hypoglycemia Treatment Stop: 06/28/23 07:26 Glucose (Glucose 40% Gel 15 Gm Tube) 15 - 30 gm PO UD PRN; Protocol PRN Reason: Hypoglycemia Protocol Stop: 06/28/23 07:26 Guaifenesin (Guaifenesin 600 Mg Tabcr) 600 mg PO Q12 [facility] Stop: 06/28/23 15:29 Last Admin: 06/01/23 21:21 Dose: 600 mg Hydroxyzine HCl (Hydroxyzine Hcl 25 Mg Tab) 50 mg PO BID PRN PRN Reason: Anxiety Stop: 06/28/23 07:26 Last Admin: 05/30/23 20:43 Dose: 50 mg Ceftriaxone Sodium 2,000 mg/ (Dextrose) 50 mls @ 100 mls/hr IV Q24H [facility]; P rotocol Stop: 06/07/23 17:14 Last Infusion: 06/01/23 17:48 Dose: Infused Insulin Aspart (Insulin Aspart Per Unit Charge) 0 units SC ACHS COUNT INCLUDES THE [facility] Stop: 06/28/23 07:29 Last Admin: 06/01/23 21:22 Dose: Not Given Levothyroxine Sodium (Levothyroxine Sodium 137 Mcg Tablet) 137 mcg PO DAILYBB COUNT INCLUDES THE [facility] Stop: 06/28/23 07:44 Last Admin: 06/02/23 05:55 Dose: 137 mcg Lisinopril (Lisinopril 40 Mg Tab) 40 mg PO DAILY COUNT [facility]CLUDES [facility] Stop: 06/28/23 08:59 Last Admin: 06/01/23 08:07 Dose: 40 mg Lovastatin (Lovastatin 20 Mg Tab) 40 mg PO DAILY [facility] Stop: 06/28/23 08:59 Last Admin: 06/01/23 08:06 Dose: 40 mg Miscellaneous (Loxapine 50mg--Order Awaiting Action) 1 each N/A QS [facility] Stop: 06/28/23 07:59 Last Admin: 06/01/23 23:32 Dose: Not Given Miscellaneous (Carbohydrates For Hypoglycemia ) 15 - 30 gm PO UD PRN PRN Reason: Hypoglycemia Protocol Stop: 06/28/23 07:26 Montelukast Sodium (Montelukast Sodium 10 Mg Tablet) 10 mg PO HS COUNT INCLUDES THE [facility] Stop: 06/28/23 20:59 Last Admin: 06/01/23 21:20 Dose: 10 mg Nitroglycerin (Nitroglycerin Sl 0.4 Mg/Tab Tab) 0.4 mg SL Q5M PRN PRN Reason: Chest Pain Stop: 06/28/23 07:26 Prednisone (Prednisone 20 Mg Tab) 40 mg PO DAILY [facility] Stop: 07/02/23 08:59 Sertraline HCl (Sertraline Hcl 100 Mg Tablet) 100 mg PO DAILY [facility] Stop: 06/28/23 08:59 Last Admin: 06/01/23 08:07 Dose: 100 mg Sodium Chloride (Sodium Chlor 7% 4 Ml Neb) 4 ml NEB BIDR [facility] Stop: 06/30/23 18:59 Last Admin: 06/02/23 07:04 Dose: 4 ml
[2023-06-02] MEDS: DOXYCYCLINE HYCLATE 100 MG CAP PO SCH ×2 (08:31→19:20)
[2023-06-02] MEDS: busPIRone 5 MG TAB PO SCH ×3 (08:31→19:19)
[2023-06-02] MEDS: INSULIN ASPART PER UNIT CHARGE SC SCH ×4 (08:31→21:30)
[2023-06-02] MEDS: SERTRALINE HCL 100 MG TABLET PO SCH (08:32)
[2023-06-02] MEDS: LOVASTATIN 20 MG TAB PO SCH (08:32)
[2023-06-02] MEDS: guaiFENesin 600 MG TABCR PO SCH ×2 (08:32→19:20)
[2023-06-02] MEDS: amLODIPine BESYLATE 5 MG TAB PO SCH (08:32)
[2023-06-02] MEDS: predniSONE 20 MG TAB PO SCH (08:33)
[2023-06-02] MEDS: lisinopril 40 MG TAB PO SCH (08:33)
[2023-06-02] MEDS: carvediloL 12.5 MG TAB PO SCH ×2 (08:33→17:15)
[2023-06-02] MEDS: BENZTROPINE MESYLATE 1 MG TAB PO SCH (08:33)
[2023-06-02] MEDS: FUROSEMIDE 20 MG TAB PO SCH (08:33)
[2023-06-02] MEDS: ENOXAPARIN INJ 40 MG/0.4 ML SYR SQ SCH (08:34)
--- NOTE | 2023-06-02 08:41 | Pulmonology Progress Note ---
Date of Service June 02, 2023 Assessment & Plan (1) COPD exacerbation: (2) Respiratory syncytial virus (RSV): (3) Bronchospasm: (4) Hypoxemia: Plan 63-year-old male with a past medical history of obesity, hypothyroidism, intellectual disability and COPD who presented to the hospital with RSV infection and COPD exacerbation. CTA chest 05/31/2023 personally reviewed: Centrilobular emphysema appreciated bilaterally more on the right side Patchy linear opacity appreciated on the left side No mediastinal lymphadenopathy Patient had similar opacity appreciated 1 in [address] chest VBG 05/29/2023: 7.43/45/56 --Acute hypoxic respiratory failure Not on any oxygen at home usually Multifactorial Pneumonia along with RSV positive Respiratory bio fire positive only for RSV on 05/29/2023 Procalcitonin negative Grade 1 diastolic dysfunction -- COPD On Trelegy inhaler at home along with montelukast Continue with nebulizer treatment while in the hospital PFT as an outpatient --[facility] I do think patient will benefit from a BiPAP at home Would recommend outpatient polysomnography Plan: Complete the course of antibiotics for [address] chest in 2 months Recommend outpatient polysomnography Prednisone 40 mg for 3 days followed by 20 mg for 2 days and then stop Will benefit from hypertonic saline even at home Case discussed with Dr. Schaefer Please note the above document was generated using voice recognition software. It may contain grammatical, syntax or spelling errors.Any formal questions or concerns about the content, text or information contained within the body of this dictation should be directly addressed to the provider for clarification. Admission and Anticipated Discharge Date Admission Date: May 29, 2023 Subjective Patient seen and examined at bedside. No acute distress, no adverse events overnight Case was discussed with outgoing biology manager At the time of examination patient denies any issues with his breathing He is feeling much better He was on oxygen. Talking in full sentences Occasional cough with clear phlegm, denies any hemoptysis Fair appetite Review of Systems 2 Review of Systems: All systems reviewed & are unremarkable except as noted in Subjective Physical Exam 2 Physical Exam: Constitutional: No acute distress HEENT: EOMI, PERRLA Respiratory system: Decreased air entry bilaterally, no wheeze, no rhonchi, mild crackles bilateral lower lobes CVS: S1-S2 positive, no murmurs or gallops Abdomen: Soft, nontender, nondistended, positive bowel sounds x4, obese Extremities: +2 pulses bilaterally radialis/ dorsalis pedis, no cyanosis, no edema Neuro: Awake alert oriented x3 Psych: Normal mood and affect G/U: No Mcghee Skin: no rashes, warm and dry Lymphatic: no cervical or axillary lymphadenopathy Results & Data Results & Data Vital Signs (Past 12 Hours) Vital Signs Temp Pulse Pulse Resp BP BP Pulse Ox 06/02/23 08:28 36.9 C 71 18 131/87 91 06/02/23 07:32 06/02/23 07:04 58 L 18 94 06/02/23 06:57 71 06/02/23 04:00 37.0 C 60 20 132/79 93 06/02/23 03:18 06/01/23 23:00 37.0 C 64 18 135/72 94 06/01/23 22:03 59 L O2 Del Method O2 Flow Rate 06/02/23 08:28 Nasal Cannula 11 06/02/23 07:32 High Flow Nasal Cannula 11 06/02/23 07:04 Nasal Cannula 11 06/02/23 06:57 06/02/23 04:00 High Flow Nasal Cannula 11 06/02/23 03:18 High Flow Nasal Cannula 11 06/01/23 23:00 High Flow Nasal Cannula 11 06/01/23 22:03 Laboratory Results 06/02/23 06:03 06/02/23 06:03 PG Care Time/CCT Total # of Minutes Spent Total Time Spent with Patient: Total time spent is greater than 50% in coordination of care (as documented) at patient's floor/unit and/or counseling patient: Coding Level of Care Code 10554 SUB INP/OBS CARE 3/50MIN Diagnoses COPD exacerbation J44.1 Respiratory syncytial virus (RSV) B33.8 Bronchospasm J98.01 Hypoxemia R09.02
[2023-06-02] MEDS: SENNA 8.6 MG TAB PO SCH (10:57)
[2023-06-02] MEDS: POLYETHYLENE (MIRALAX) 17 GM PACK PO SCH (10:57)
[2023-06-02] MEDS: cefTRIAXone SODIUM 2,000 MG in DEXTROSE 5 % MINI-B 50 ML IV SCH (17:14)
[2023-06-02] MEDS: MONTELUKAST SODIUM 10 MG TABLET PO SCH (19:20)
[2023-06-03] MEDS: LEVOTHYROXINE SODIUM 137 MCG TABLET PO SCH (06:02)
[2023-06-03 06:31] LABS: Hematocrit (blood only) 54.9 % (42.0-52.0); Mean Corpuscular Hemoglobin 28.3 pg (25.0-34.0); Mean Corpuscular Hgb Conc 32.8 g/dL (32.0-36.0); Mean Corpuscular Volume 86.2 fL (80.0-100.0); Mean Platelet Volume 8.7 fL (9.4-12.4); Platelet Count 230 K/uL (130-400); RDW Coefficient of Variation 15.3 % (11.5-14.5); Red Blood Count 6.37 M/uL (4.70-6.10); White Blood Count 8.69 K/ul (4.8-10.8)
[2023-06-03 06:54] LABS: BUN Creatinine Ratio 21.8 (10-20); Calcium 9.4 mg/dl (8.6-10.3); Creatinine Clr Calc Pharmacy 134.5 ml/min; Est GFR (African American) 111.3 ml/min; Est GFR (Non-African American) 96.1 ml/min; Magnesium 2.2 mg/dl (1.7-2.4); Phosphorus 2.6 mg/dl (2.5-4.9)
[2023-06-03] MEDS: BUDESONIDE 0.5 MG/2 ML VIAL (PULMICORT) NEB SCH ×2 (07:03→19:05)
[2023-06-03] MEDS: SODIUM CHLOR 7% 4 ML NEB NEB SCH ×2 (07:03→19:05)
[2023-06-03] MEDS: ALBUT/IPRATROP 3MG/0.5MG NEB 3 ML VIAL NEB SCH ×4 (07:03→19:04)
[2023-06-03] MEDS: FORMOTEROL 20 MCG/2 ML VIAL NEB SCH ×2 (07:03→19:04)
--- NOTE | 2023-06-03 07:19 | Hospitalist Progress Note ---
Date of Service June 03, 2023 Assessment & Plan (1) COPD exacerbation: Plan: 63 yo M w/ hypertension, hypothyroidism, prediabetes, COPD, moderate persistent asthma, history of hypertrophic obstructive cardiomyopathy, grade 1 diastolic dysfunction, chronic respiratory failure with hypoxia on home oxygen therapy as per [facility] but patient states that he is not on oxygen at home. Morbid obesity, alcoholic dependence in remission, Schizoaffective disorder, medical marijuana use, comes in because of shortness of breath going on for last few days. Acute hypoxic resp. failure COPD/asthma exacerbation + RSV DuoNebs scheduled and as needed IV Solu-Medrol 40 mg 3 times daily initially Procalcitonin negative Closely monitor Two-step home oxygen evaluation prior to discharge 05/31 increased oxygen requirement from 3L previously to 8L sputum cultx unrevealing repeat CXR w/o changes from previous CT PE - no PE, however poss. PNA, started ceftriaxone and doxy. Pulmonary consulted - transitioned Breo elliptica to nebulized formoterol and budesonide while in the hospital. Continue DuoNebs. Cont. p.o. prednisone. Cont. hypertonic saline. Add mucomyst. Start acetazolamide. Repeat ABG tmrw AM. Cont. antibiotics. Will need sleep study as outpt. Repeat CT chest in 2 months. 06/02 currently on 12 L of O2 Wean off oxygen, down to 10 RSV droplet precautions Supportive care History of hypertrophic obstructive cardiomyopathy Grade 1 diastolic dysfunction Has lower extremity edema on admission Had mild chest discomfort that resolved now serial cardiac enzymes negative echo -EF 65 to 70%. There is mild concentric LVH. Grade 1 diastolic dysfunction. Poorly visualized valvular anatomy without significant stenosis or regurg. Hypertension Lisinopril, Coreg and amlodipine Will monitor Hypothyroidism cont Synthyroid Hyperlipidemia On statin Diabetes Hold metformin sliding scale Will monitor Schizoaffective disorder Continue home meds DVT prophylaxis Lovenox Disposition Med/tele Full code Admission and Anticipated Discharge Date Admission Date: May 29, 2023 Subjective Pt seen in follow up of hypoxia, copd exacerbation, +RSV Sitting up in chair, in no acute distress, on supplemental oxygen Previously he was feeling much better was on 3L, however then his oxygen requirement increased significantly. CT PE negat. for PE. Pulm. medicine consulted - pt is now able to bring up more mucus. cont. to use sign. amount of oxygen sputum cultx unrevealing No fevers chills or chest pain but says he is feeling weak but better than yesterday . reports constipation. Review of Systems Review of Systems: All systems reviewed & are unremarkable except as noted in Subjective Physical Exam Physical Exam: General- obese M in NAD, on suppl. O2 12L Head- atraumatic Eyes- PERRL. Neck- supple, no JVD. Lungs- + mild rhonchi and mild b/l exp. wheezing Heart- regular rhythm; no murmur, no gallop. Abdomen- normal bowel sounds, soft, nontender, no distension. + obese abdomen Extremities- trace lower extremity edema present. No erythema seen. Neuro- alert, oriented x 3; PERRL, no facial palsy; no dysarthria; moves extremities. Skin- warm & dry Results & Data Results & Data Vital Signs (Past 12 Hours) Vital Signs Temp Pulse Pulse Resp BP Pulse Ox O2 Del Method 06/03/23 07:03 84 18 93 Nasal Cannula 06/03/23 03:07 36.9 C 61 20 167/99 H 90 High Flow Nasal Cannula 06/02/23 22:44 37.0 C 66 20 147/73 H 94 High Flow Nasal Cannula 06/02/23 22:05 54 L 06/02/23 20:08 36.9 C 55 L 20 108/68 93 High Flow Nasal Cannula 06/02/23 19:29 64 20 92 Nasal Cannula O2 Flow Rate 06/03/23 07:03 10 06/03/23 03:07 10 06/02/23 22:44 10 06/02/23 22:05 06/02/23 20:08 10 06/02/23 19:29 9 Laboratory Results 06/03/23 06/02/23 06/02/23 Range/Units 05:25 20:07 16:58 WBC 8.69 (4.8-10.8) K/ul RBC 6.37 H (4.70-6.10) M/uL Hgb 18.0 (14.0-18.0) g/dl Hct 54.9 H (42.0-52.0) % MCV 86.2 (80.0-100.0) fL MCH 28.3 (25.0-34.0) pg MCHC 32.8 (32.0-36.0) g/dL RDW Std Deviation 47.0 H (36.4-46.3) fL RDW Coeff of Lazaro 15.3 H (11.5-14.5) % Plt Count 230 (130-400) K/uL MPV 8.7 L (9.4-12.4) fL Sodium 136 (136-145) mmol/L Potassium 4.0 (3.5-5.1) mmol/L Chloride 90 L (98-107) mmol/L Carbon Dioxide 42 H* (21-32) mmol/L Anion Gap 4 (3-11) BUN 17 (6-23) mg/dl Creatinine 0.78 (0.6-1.4) mg/dl Est Cr Clr Drug Dosing 134.5 ml/min Est GFR ( Amer) 111.3 ml/min Est GFR (Non-Af Amer) 96.1 ml/min BUN/Creatinine Ratio 21.8 H (10-20) Glucose 92 (70-99(Fasting)) mg/dl POC Glucose 110 H 113 H (70-99) mg/dl Calcium 9.4 (8.6-10.3) mg/dl Phosphorus 2.6 (2.5-4.9) mg/dl Magnesium 2.2 (1.7-2.4) mg/dl 06/02/23 06/02/23 Range/Units 12:21 08:16 WBC (4.8-10.8) K/ul RBC (4.70-6.10) M/uL Hgb (14.0-18.0) g/dl Hct (42.0-52.0) % MCV (80.0-100.0) fL MCH (25.0-34.0) pg MCHC (32.0-36.0) g/dL RDW Std Deviation (36.4-46.3) fL RDW Coeff of Lazaro (11.5-14.5) % Plt Count (130-400) K/uL MPV (9.4-12.4) fL Sodium (136-145) mmol/L Potassium (3.5-5.1) mmol/L Chloride (98-107) mmol/L Carbon Dioxide (21-32) mmol/L Anion Gap (3-11) BUN (6-23) mg/dl Creatinine (0.6-1.4) mg/dl Est Cr Clr Drug Dosing ml/min Est GFR ( Amer) ml/min Est GFR (Non-Af Amer) ml/min BUN/Creatinine Ratio (10-20) Glucose (70-99(Fasting)) mg/dl POC Glucose 129 H 170 H (70-99) mg/dl Calcium (8.6-10.3) mg/dl Phosphorus (2.5-4.9) mg/dl Magnesium (1.7-2.4) mg/dl Medications Administered Current Inpatient Medications Acetaminophen (Acetaminophen 325 Mg Tab) 650 mg PO Q4H PRN PRN Reason: Pain or Fever Stop: 06/28/23 07:26 Albuterol (Albut/Ipratrop 3mg/0.5mg Neb 3 Ml Vial) 3 ml NEB QIDR DANA; Protocol Stop: 06/28/23 07:26 Last Admin: 06/03/23 07:03 Dose: 3 ml Amlodipine Besylate (Amlodipine Besylate 5 Mg Tab) 5 mg PO DAILY [facility] Stop: 06/28/23 08:59 Last Admin: 06/02/23 08:32 Dose: 5 mg Benztropine Mesylate (Benztropine Mesylate 1 Mg Tab) 1 mg PO DAILY [facility] Stop: 06/28/23 08:59 Last Admin: 06/02/23 08:33 Dose: 1 mg Budesonide (Budesonide 0.5 Mg/2 Ml Vial (Pulmicort)) 0.5 mg NEB BIDR [facility] Stop: 06/30/23 18:59 Last Admin: 06/03/23 07:03 Dose: 0.5 mg Buspirone HCl (Buspirone 5 Mg Tab) 10 mg PO TID [facility] Stop: 06/28/23 08:59 Last Admin: 06/02/23 19:19 Dose: 10 mg Carvedilol (Carvedilol 12.5 Mg Tab) 12.5 mg PO BIDM [facility] Stop: 06/28/23 07:59 Last Admin: 06/02/23 17:15 Dose: 12.5 mg Dextrose (Dextrose 50% 50 Ml Syringe) 25 - 50 ml IV UD PRN; Protocol PRN Reason: Hypoglycemia Protocol Stop: 06/28/23 07:26 Doxycycline Hyclate (Doxycycline Hyclate 100 Mg Cap) 100 mg PO BID [facility] Stop: 06/07/23 20:59 Last Admin: 06/02/23 19:20 Dose: 100 mg Enoxaparin Sodium (Enoxaparin Inj 40 Mg/0.4 Ml Syr) 40 mg SQ Q24H [facility] Stop: 06/28/23 08:59 Last Admin: 06/02/23 08:34 Dose: 40 mg Formoterol Fumarate (Formoterol 20 Mcg/2 Ml Vial) 20 mcg NEB BIDR [facility] Stop: 06/30/23 18:59 Last Admin: 06/03/23 07:03 Dose: 20 mcg Furosemide (Furosemide 20 Mg Tab) 20 mg PO QAM [facility] Stop: 06/28/23 15:29 Last Admin: 06/02/23 08:33 Dose: 20 mg Glucagon (Glucagon For Inj 1 Mg Vial) 1 mg SQ UD PRN; Protocol PRN Reason: Hypoglycemia Protocol Stop: 06/28/23 07:26 Glucose (Glucose 10 Tab/Tube) 4 - 8 tab PO UD PRN; Protocol PRN Reason: Hypoglycemia Treatment Stop: 06/28/23 07:26 Glucose (Glucose 40% Gel 15 Gm Tube) 15 - 30 gm PO UD PRN; Protocol PRN Reason: Hypoglycemia Protocol Stop: 06/28/23 07:26 Guaifenesin (Guaifenesin 600 Mg Tabcr) 600 mg PO Q12 [facility] Stop: 06/28/23 15:29 Last Admin: 06/02/23 19:20 Dose: 600 mg Hydroxyzine HCl (Hydroxyzine Hcl 25 Mg Tab) 50 mg PO BID PRN PRN Reason: Anxiety Stop: 06/28/23 07:26 Last Admin: 05/30/23 20:43 Dose: 50 mg Ceftriaxone Sodium 2,000 mg/ (Dextrose) 50 mls @ 100 mls/hr IV Q24H [facility]; Protocol Stop: 06/07/23 17:14 Last Infusion: 06/02/23 17:51 Dose: Infused Insulin Aspart (Insulin Aspart Per Unit Charge) 0 units SC ACHS [facility] Stop: 06/28/23 07:29 Last Admin: 06/02/23 21:30 Dose: Not Given Levothyroxine Sodium (Levothyroxine Sodium 137 Mcg Tablet) 137 mcg PO DAILYBB [facility] Stop: 06/28/23 07:44 Last Admin: 06/03/23 06:02 Dose: 137 mcg Lisinopril (Lisinopril 40 Mg Tab) 40 mg PO DAILY [facility] Stop: 06/28/23 08:59 Last Admin: 06/02/23 08:33 Dose: 40 mg Lovastatin (Lovastatin 20 Mg Tab) 40 mg PO DAILY [facility] Stop: 06/28/23 08:59 Last Admin: 06/02/23 08:32 Dose: 40 mg Miscellaneous (Loxapine 50mg--Order Awaiting Action) 1 each N/A QS [facility] Stop: 06/28/23 07:59 Last Admin: 06/02/23 23:19 Dose: Not Given Miscellaneous (Carbohydrates For Hypoglycemia ) 15 - 30 gm PO UD PRN PRN Reason: Hypoglycemia Protocol Stop: 06/28/23 07:26 Montelukast Sodium (Montelukast Sodium 10 Mg Tablet) 10 mg PO HS [facility] Stop: 06/28/23 20:59 Last Admin: 06/02/23 19:20 Dose: 10 mg Nitroglycerin (Nitroglycerin Sl 0.4 Mg/Tab Tab) 0.4 mg SL Q5M PRN PRN Reason: Chest Pain Stop: 06/28/23 07:26 Polyethylene Glycol (Polyethylene (Miralax) 17 Gm Pack) 17 gm PO DAILY [facility] Stop: 07/02/23 10:44 Last Admin: 06/02/23 10:57 Dose: 17 gm Prednisone (Prednisone 20 Mg Tab) 40 mg PO DAILY [facility] Stop: 07/02/23 08:59 Last Admin: 06/02/23 08:33 Dose: 40 mg Sennosides (Senna 8.6 Mg Tab) 8.6 mg PO QAM [facility] Stop: 07/02/23 10:44 Last Admin: 06/02/23 10:57 Dose: 8.6 mg Sertraline HCl (Sertraline Hcl 100 Mg Tablet) 100 mg PO DAILY [facility] Stop: 06/28/23 08:59 Last Admin: 06/02/23 08:32 Dose: 100 mg Sodium Chloride (Sodium Chlor 7% 4 Ml Neb) 4 ml NEB BIDR [facility] Stop: 06/30/23 18:59 Last Admin: 06/03/23 07:03 Dose: 4 ml
[2023-06-03] MEDS: FUROSEMIDE 20 MG TAB PO SCH (07:28)
--- NOTE | 2023-06-03 07:38 | Pulmonology Progress Note ---
Date of Service June 03, 2023 Assessment & Plan (1) COPD exacerbation: (2) Respiratory syncytial virus (RSV): (3) Bronchospasm: (4) Hypoxemia: Plan 63-year-old male with a past medical history of obesity, hypothyroidism, intellectual disability and COPD who presented to the hospital with RSV infection and COPD exacerbation. CTA chest 05/31/2023 personally reviewed: Centrilobular emphysema appreciated bilaterally more on the right side Patchy linear opacity appreciated on the left side No mediastinal lymphadenopathy Patient had similar opacity appreciated 1 in [address] chest VBG 05/29/2023: 7.43/45/56 --Acute hypoxic respiratory failure Not on any oxygen at home usually Multifactorial Pneumonia along with RSV positive Respiratory bio fire positive only for RSV on 05/29/2023 Procalcitonin negative Grade 1 diastolic dysfunction -- COPD On Trelegy inhaler at home along with montelukast Continue with nebulizer treatment while in the hospital PFT as an outpatient -- Metabolic alkalosis Likely compensation for chronic respiratory acidosis as well as contraction alkalosis --[facility] I do think patient will benefit from a BiPAP at home Would recommend outpatient polysomnography Plan: Complete the course of antibiotics for [address] chest in 2 months Recommend outpatient polysomnography Prednisone 40 mg for 3 days followed by 20 mg for 2 days and then stop Will benefit from hypertonic saline even at home Add Mucomyst nebulized while in the hospital Hold Lasix for the time being, give acetazolamide 250 mg twice daily for 3 days, ABG in the morning Case discussed with Dr. Schaefer and at bedside with RN Please note the above document was generated using voice recognition software. It may contain grammatical, syntax or spelling errors.Any formal questions or concerns about the content, text or information contained within the body of this dictation should be directly addressed to the provider for clarification. Admission and Anticipated Discharge Date Admission Date: May 29, 2023 Subjective Patient seen and examined at bedside. No acute distress, no events overnight He was saturating 97% on 10 L nasal cannula, I went down to 6 L and was still saturating 94% Still bringing up copious amount of phlegm. Mildly blood-tinged Fair appetite Urinating well Denies any headache, no nausea, no vomiting Review of Systems 2 Review of Systems: All systems reviewed & are unremarkable except as noted in Subjective Physical Exam 2 Physical Exam: Constitutional: No acute distress HEENT: EOMI, PERRLA Respiratory system: Decreased air entry bilaterally, minimal expiratory wheeze bilaterally, no rhonchi, mild crackles bilateral lower lobes CVS: S1-S2 positive, no murmurs or gallops Abdomen: Soft, nontender, nondistended, positive bowel sounds x4, obese Extremities: +2 pulses bilaterally radialis/ dorsalis pedis, no cyanosis, +2 pitting edema bilateral lower extremity Neuro: Awake alert oriented x3 Psych: Normal mood and affect G/U: No Mcghee Skin: no rashes, warm and dry Lymphatic: no cervical or axillary lymphadenopathy Results & Data Results & Data Vital Signs (Past 12 Hours) Vital Signs Temp Pulse Pulse Resp BP Pulse Ox O2 Del Method 06/03/23 07:03 84 18 93 Nasal Cannula 06/03/23 03:07 36.9 C 61 20 167/99 H 90 High Flow Nasal Cannula 06/02/23 22:44 37.0 C 66 20 147/73 H 94 High Flow Nasal Cannula 06/02/23 22:05 54 L 06/02/23 20:08 36.9 C 55 L 20 108/68 93 High Flow Nasal Cannula O2 Flow Rate 06/03/23 07:03 10 06/03/23 03:07 10 06/02/23 22:44 10 06/02/23 22:05 06/02/23 20:08 10 Laboratory Results 06/03/23 05:25 06/03/23 05:25 PG Care Time/CCT Total # of Minutes Spent Total Time Spent with Patient: Total time spent is greater than 50% in coordination of care (as documented) at patient's floor/unit and/or counseling patient: Coding Level of Care Code 74835 SUB INP/OBS CARE 3/50MIN Diagnoses COPD exacerbation J44.1 Respiratory syncytial virus (RSV) B33.8 Bronchospasm J98.01 Hypoxemia R09.02
[2023-06-03] MEDS: guaiFENesin 600 MG TABCR PO SCH ×2 (07:51→20:09)
[2023-06-03] MEDS: busPIRone 5 MG TAB PO SCH ×3 (07:51→20:09)
[2023-06-03] MEDS: DOXYCYCLINE HYCLATE 100 MG CAP PO SCH ×2 (07:51→20:09)
[2023-06-03] MEDS: LOVASTATIN 20 MG TAB PO SCH (07:52)
[2023-06-03] MEDS: BENZTROPINE MESYLATE 1 MG TAB PO SCH (07:52)
[2023-06-03] MEDS: lisinopril 40 MG TAB PO SCH (07:52)
[2023-06-03] MEDS: carvediloL 12.5 MG TAB PO SCH ×2 (07:53→16:51)
[2023-06-03] MEDS: SERTRALINE HCL 100 MG TABLET PO SCH (07:53)
[2023-06-03] MEDS: amLODIPine BESYLATE 5 MG TAB PO SCH (07:53)
[2023-06-03] MEDS: POLYETHYLENE (MIRALAX) 17 GM PACK PO SCH (07:54)
[2023-06-03] MEDS: ENOXAPARIN INJ 40 MG/0.4 ML SYR SQ SCH (07:54)
[2023-06-03] MEDS: SENNA 8.6 MG TAB PO SCH (07:54)
[2023-06-03] MEDS: acetaZOLAMIDE 250 MG TAB PO SCH ×2 (08:00→16:50)
[2023-06-03] MEDS: INSULIN ASPART PER UNIT CHARGE SC SCH ×4 (08:30→20:14)
[2023-06-03] MEDS: predniSONE 20 MG TAB PO SCH (09:33)
[2023-06-03] MEDS: ACETYLCYSTEINE 20% INHAL SOLN 4ML ***DISPENSED BY RESP. INH SCH ×2 (11:08→19:04)
[2023-06-03] MEDS: cefTRIAXone SODIUM 2,000 MG in DEXTROSE 5 % MINI-B 50 ML IV SCH (16:52)
[2023-06-03] MEDS: MONTELUKAST SODIUM 10 MG TABLET PO SCH (20:09)
[2023-06-03] MEDS ORDERED: MAGNESIUM HYDROXIDE SUSP 30 ML UDC PO ONE (20:45)
[2023-06-04 04:22] LABS: Allen Test Pos (Pos); Base Excess ABG 7.8 mEq/L (-9-1.8); HCO3 ABG 36 mmol/L (19-24); Oxygen Saturation ABG 96.2 % (90-95); PCO2 ABG 67 mmHg (35-46); PO2 ABG 96 mmHg (80-95); pH ABG 7.34 (7.35-7.45)
[2023-06-04 04:28] LABS: Hematocrit (blood only) 53.6 % (42.0-52.0); Hemoglobin 16.8 g/dl (14.0-18.0); Mean Corpuscular Hemoglobin 27.4 pg (25.0-34.0); Mean Corpuscular Hgb Conc 31.3 g/dL (32.0-36.0); Mean Corpuscular Volume 87.3 fL (80.0-100.0); Mean Platelet Volume 8.9 fL (9.4-12.4); Platelet Count 221 K/uL (130-400); RDW Coefficient of Variation 14.8 % (11.5-14.5); RDW Standard Deviation 46.7 fL (36.4-46.3); Red Blood Count 6.14 M/uL (4.70-6.10); White Blood Count 9.33 K/ul (4.8-10.8)
[2023-06-04 04:47] LABS: Calcium 8.9 mg/dl (8.6-10.3); Magnesium 2.4 mg/dl (1.7-2.4); Potassium 3.5 mmol/L (3.5-5.1)
[2023-06-04 04:53] LABS: BUN Creatinine Ratio 25.9 (10-20); Creatinine Clr Calc Pharmacy 129.5 ml/min; Est GFR (African American) 109.6 ml/min; Est GFR (Non-African American) 94.6 ml/min; Phosphorus 2.5 mg/dl (2.5-4.9)
[2023-06-04] MEDS: LEVOTHYROXINE SODIUM 137 MCG TABLET PO SCH (06:03)
[2023-06-04] MEDS: ACETYLCYSTEINE 20% INHAL SOLN 4ML ***DISPENSED BY RESP. INH SCH ×2 (07:00→19:53)
[2023-06-04] MEDS: SODIUM CHLOR 7% 4 ML NEB NEB SCH ×2 (07:00→19:53)
[2023-06-04] MEDS: ALBUT/IPRATROP 3MG/0.5MG NEB 3 ML VIAL NEB SCH ×4 (07:00→19:53)
[2023-06-04] MEDS: FORMOTEROL 20 MCG/2 ML VIAL NEB SCH ×2 (07:00→19:53)
[2023-06-04] MEDS: BUDESONIDE 0.5 MG/2 ML VIAL (PULMICORT) NEB SCH ×2 (07:01→19:53)
--- NOTE | 2023-06-04 07:29 | Pulmonology Progress Note ---
Date of Service June 04, 2023 Assessment & Plan (1) COPD exacerbation: (2) Respiratory syncytial virus (RSV): (3) Bronchospasm: (4) Hypoxemia: Plan 63-year-old male with a past medical history of obesity, hypothyroidism, intellectual disability and COPD who presented to the hospital with RSV infection and COPD exacerbation. CTA chest 05/31/2023 personally reviewed: Centrilobular emphysema appreciated bilaterally more on the right side Patchy linear opacity appreciated on the left side No mediastinal lymphadenopathy Patient had similar opacity appreciated 1 [address] chest VBG 05/29/2023: 7.43/45/56 --Acute hypoxic respiratory failure Not on any oxygen at home usually Multifactorial Pneumonia along with RSV positive Respiratory bio fire positive only for RSV on 05/29/2023 Procalcitonin negative Grade 1 diastolic dysfunction -- COPD On Trelegy inhaler at home along with montelukast Continue with nebulizer treatment while in the hospital PFT as an outpatient -- Metabolic alkalosis Likely compensation for chronic respiratory acidosis as well as contraction alkalosis --[facility] I do think patient will benefit from a BiPAP at home Would recommend outpatient polysomnography Plan: Repeat CT chest in 2 months Recommend outpatient polysomnography Taper prednisone off Will benefit from hypertonic saline even at home Add Mucomyst nebulized while in the hospital Hold acetazolamide given respiratory acidosis. Patient will benefit from BiPAP nightly and as needed shortness of breath Please note the above document was generated using voice recognition software. It may contain grammatical, syntax or spelling errors.Any formal questions or concerns about the content, text or information contained within the body of this dictation should be directly addressed to the provider for clarification. Admission and Anticipated Discharge Date Admission Date: May 29, 2023 Subjective Patient seen and examined at bedside. No acute distress Patient was saturating 91-92% on 9 L nasal cannula He said that he is feeling a little bit worse compared to yesterday. Tolerating diet No nausea vomiting Denies any headache Review of Systems 2 Review of Systems: All systems reviewed & are unremarkable except as noted in Subjective Physical Exam 2 Physical Exam: Constitutional: No acute distress HEENT: EOMI, PERRLA Respiratory system: Decreased air entry bilaterally, minimal expiratory wheeze bilaterally, no rhonchi, mild crackles bilateral lower lobes CVS: S1-S2 positive, no murmurs or gallops Abdomen: Soft, nontender, nondistended, positive bowel sounds x4, obese Extremities: +2 pulses bilaterally radialis/ dorsalis pedis, no cyanosis, +2 pitting edema bilateral lower extremity Neuro: Awake alert oriented x3 Psych: Normal mood and affect G/U: No Mcghee Skin: no rashes, warm and dry Lymphatic: no cervical or axillary lymphadenopathy Results & Data Results & Data Vital Signs (Past 12 Hours) Vital Signs Temp Pulse Pulse Resp BP Pulse Ox O2 Del Method 06/04/23 07:01 68 18 92 Nasal Cannula 06/04/23 03:57 High Flow Nasal Cannula 06/04/23 03:41 36.9 C 52 L 16 95/56 L 93 High Flow Nasal Cannula 06/03/23 23:13 36.6 C 50 L 18 110/67 92 Nasal Cannula 06/03/23 22:03 55 L 06/03/23 19:50 37 C 66 18 96/54 L 95 Free Flow/Blow-by O2 Flow Rate 06/04/23 07:01 9 06/04/23 03:57 9 06/04/23 03:41 9 06/03/23 23:13 4 06/03/23 22:03 06/03/23 19:50 9 Laboratory Results 06/04/23 04:01 06/04/23 04:01 PG Care Time/CCT Total # of Minutes Spent Total Time Spent with Patient: Total time spent is greater than 50% in coordination of care (as documented) at patient's floor/unit and/or counseling patient: Coding Level of Care Code 37885 SUB INP/OBS CARE 3/50MIN Diagnoses COPD exacerbation J44.1 Respiratory syncytial virus (RSV) B33.8 Bronchospasm J98.01 Hypoxemia R09.02
[2023-06-04] MEDS: BENZTROPINE MESYLATE 1 MG TAB PO SCH (07:32)
[2023-06-04] MEDS: POLYETHYLENE (MIRALAX) 17 GM PACK PO SCH (07:32)
[2023-06-04] MEDS: guaiFENesin 600 MG TABCR PO SCH ×2 (07:32→21:08)
[2023-06-04] MEDS: busPIRone 5 MG TAB PO SCH ×3 (07:32→21:08)
[2023-06-04] MEDS: ENOXAPARIN INJ 40 MG/0.4 ML SYR SQ SCH (07:33)
[2023-06-04] MEDS: carvediloL 12.5 MG TAB PO SCH ×2 (07:33→17:38)
[2023-06-04] MEDS: lisinopril 40 MG TAB PO SCH (07:35)
[2023-06-04] MEDS: amLODIPine BESYLATE 5 MG TAB PO SCH (07:36)
[2023-06-04] MEDS: predniSONE 20 MG TAB PO SCH (07:36)
[2023-06-04] MEDS: DOXYCYCLINE HYCLATE 100 MG CAP PO SCH ×2 (07:36→21:08)
[2023-06-04] MEDS: SENNA 8.6 MG TAB PO SCH (07:36)
[2023-06-04] MEDS: SERTRALINE HCL 100 MG TABLET PO SCH (07:36)
[2023-06-04] MEDS: LOVASTATIN 20 MG TAB PO SCH (07:37)
[2023-06-04] MEDS: INSULIN ASPART PER UNIT CHARGE SC SCH ×4 (08:42→21:09)
--- NOTE | 2023-06-04 15:45 | Hospitalist Progress Note ---
Date of Service June 04, 2023 Assessment & Plan (1) COPD exacerbation: Plan: per previous hospitalist notes with addendum: 63 yo M w/ hypertension, hypothyroidism, prediabetes, COPD, moderate persistent asthma, history of hypertrophic obstructive cardiomyopathy, grade 1 diastolic dysfunction, chronic respiratory failure with hypoxia on home oxygen therapy as per [facility] but patient states that he is not on oxygen at home. Morbid obesity, alcoholic dependence in remission, Schizoaffective disorder, medical marijuana use, comes in because of shortness of breath going on for last few days. Acute hypoxic resp. failure COPD/asthma exacerbation + RSV DuoNebs scheduled and as needed IV Solu-Medrol 40 mg 3 times daily initially Procalcitonin negative Closely monitor Two-step home oxygen evaluation prior to discharge 05/31 increased oxygen requirement from 3L previously to 8L sputum cultx unrevealing repeat CXR w/o changes from previous CT PE - no PE, however poss. PNA, started ceftriaxone and doxy. Pulmonary consulted - transitioned Breo elliptica to nebulized formoterol and budesonide while in the hospital. Continue DuoNebs. Cont. p.o. prednisone. Cont. hypertonic saline. Add mucomyst. Start acetazolamide. Repeat ABG tmrw AM. Cont. antibiotics. Will need sleep study as outpt. Repeat CT chest in 2 months. 06/02 currently on 12 L of O2 Wean off oxygen, down to 10 06/04 remains on 9 L NC continue Perforomist +Pulmicort Prednisone 40mg daily Ceftri + Doxy #4 encouraged to use Incentive spirometer and Flutter Valve Metabolic Alkalosis on Acetazolamide RSV droplet precautions Supportive care History of hypertrophic obstructive cardiomyopathy Grade 1 diastolic dysfunction Has lower extremity edema on admission Had mild chest discomfort that resolved now serial cardiac enzymes negative echo -EF 65 to 70%. There is mild concentric LVH. Grade 1 diastolic dysfunction. Poorly visualized valvular anatomy without significant stenosis or regurg. Hypertension Lisinopril, Coreg and amlodipine Will monitor Hypothyroidism cont Synthroid Hyperlipidemia On statin Diabetes Hold metformin sliding scale Will monitor Schizoaffective disorder Continue home meds DVT prophylaxis Lovenox Disposition Med/tele Full code Admission and Anticipated Discharge Date Admission Date: May 29, 2023 Subjective ff up for RSV, pneumonia, acute respiratory failure, etc seen resting in bedside chair, comfortable breathing is about the same as yesterday still having some dyspnea (+) cough, brown phlegm no chest pain, dyspnea, palpitations, dizziness no fever/chills no other symptoms Review of Systems Review of Systems: all noted and negative except for above Physical Exam Physical Exam: General- oriented x 3, not in distress, speaks in sentences with no effort or accessory muscle use Eyes- anicteric Neck- no JVD Lungs- (+) scattered mild wheezing bilaterally Heart- normal rate, regular rhythm; no murmurs Abdomen- normal bowel sounds, nondistended, soft, nontender Extremities- no pretibial edema, no calf tenderness Neuro- alert, oriented x 3; no gross focal neurologic deficits Skin- warm & dry Results & Data Results & Data Vital Signs (Past 12 Hours) Vital Signs Temp Pulse Resp BP BP Pulse Ox Pulse Ox 06/04/23 14:21 74 18 92 06/04/23 12:10 37.0 C 58 L 18 130/80 91 06/04/23 11:38 06/04/23 10:43 78 18 91 06/04/23 08:42 06/04/23 07:47 69 18 137/79 92 06/04/23 07:01 68 18 92 06/04/23 07:00 92 06/04/23 03:57 06/04/23 03:41 36.9 C 52 L 16 95/56 L 93 O2 Del Method O2 Del Method O2 Flow Rate 06/04/23 14:21 Nasal Cannula 9 06/04/23 12:10 Room Air 06/04/23 11:38 9 06/04/23 10:43 Nasal Cannula 9 06/04/23 08:42 High Flow Nasal Cannula 9 06/04/23 07:47 High Flow Nasal Cannula 06/04/23 07:01 Nasal Cannula 9 06/04/23 07:00 High Flow Nasal Cannula 06/04/23 03:57 High Flow Nasal Cannula 9 06/04/23 03:41 High Flow Nasal Cannula 9 all noted and reviewed including below
[2023-06-04] MEDS: cefTRIAXone SODIUM 2,000 MG in DEXTROSE 5 % MINI-B 50 ML IV SCH (17:36)
[2023-06-04] MEDS: MONTELUKAST SODIUM 10 MG TABLET PO SCH (21:09)
[2023-06-05] MEDS: LEVOTHYROXINE SODIUM 137 MCG TABLET PO SCH (05:38)
[2023-06-05 06:18] LABS: HCO3 ABG 33 mmol/L (19-24); Oxygen Saturation ABG 91.6 % (90-95); PCO2 ABG 54 mmHg (35-46); PO2 ABG 68 mmHg (80-95)
[2023-06-05 06:19] LABS: Allen Test Pos (Pos)
--- NOTE | 2023-06-05 07:18 | XRay Report ---
XR chest 1V portable HISTORY: 63 years-old Male f/u acute shortness of breath COMPARISON: CTA chest 06/08/2023 TECHNIQUE: Portable AP view of the chest FINDINGS: Cardiac silhouette is enlarged. There is no pneumothorax or pleural effusion. Pulmonary emphysema wit h chronic interstitial coarsening. Chronic right lung volume loss. Unchanged metallic density subpleu ral focus adjacent to the right lower lobe. Patchy airspace opacities are again noted throughout the left lung, mildly improved. Degenerative changes of the shoulders and spine. Bronchial wall thickenin g. IMPRESSION: 1. Mildly improved patchy left lung predominant airspace opacities suggestive of resolving pneumonia. 2. Cardiomegaly without overt pulmonary edema. 3. Emphysema with chronic findings as above. ACT 112: Negative or not required by law. The above report was generated using voice recognition software. It may contain grammatical, syntax o r spelling errors. Electronically signed by: Zoltna Carter M.D. 06/05/2023 7:17 AM
--- NOTE | 2023-06-05 07:44 | Pulmonology Progress Note ---
Date of Service June 05, 2023 Assessment & Plan (1) COPD exacerbation: (2) Respiratory syncytial virus (RSV): (3) Bronchospasm: (4) Hypoxemia: Plan 63-year-old male with a past medical history of obesity, hypothyroidism, intellectual disability and COPD who presented to the hospital with RSV infection and COPD exacerbation. CTA chest 05/31/2023 personally reviewed: Centrilobular emphysema appreciated bilaterally more on the right side Patchy linear opacity appreciated on the left side No mediastinal lymphadenopathy Patient had similar opacity appreciated 1 [address] chest VBG 05/29/2023: 7.43/45/56 --Acute hypoxic respiratory failure Not on any oxygen at home usually Multifactorial Pneumonia along with RSV positive Respiratory bio fire positive only for RSV on 05/29/2023 Procalcitonin negative Grade 1 diastolic dysfunction -- COPD On Trelegy inhaler at home along with montelukast Continue with nebulizer treatment while in the hospital PFT as an outpatient -- Metabolic alkalosis Likely compensation for chronic respiratory acidosis as well as contraction alkalosis --[facility]/OHS I do think patient will benefit from a BiPAP at home Would recommend outpatient polysomnography Plan: Repeat CT chest in 2 months ABG pH 7.4. Give 1 dose of acetazolamide. Recommend outpatient polysomnography Taper prednisone off Given the hemoptysis, discontinue chest vest, no flutter valve. Will change Mucinex to Mucinex-DM [id number] Discontinue hypertonic saline as well as Mucomyst Continue with BiPAP nightly and as needed shortness of breath Please note the above document was generated using voice recognition software. It may contain grammatical, syntax or spelling errors.Any formal questions or concerns about the content, text or information contained within the body of this dictation should be directly addressed to the provider for clarification. Admission and Anticipated Discharge Date Admission Date: May 29, 2023 Subjective Patient seen and examined at bedside. No acute distress Overnight patient did have coughing episodes where he had hemoptysis. No hemoptysis today since morning. Had used his BiPAP last night. Breathing is at his baseline Denies any nausea vomiting Was on 9 L nasal cannula saturating 95-96% Review of Systems 2 Review of Systems: All systems reviewed & are unremarkable except as noted in Subjective Physical Exam 2 Physical Exam: Constitutional: No acute distress HEENT: EOMI, PERRLA Respiratory system: Decreased air entry bilaterally, minimal expiratory wheeze bilaterally, no rhonchi, mild crackles bilateral lower lobes CVS: S1-S2 positive, no murmurs or gallops Abdomen: Soft, nontender, nondistended, positive bowel sounds x4, obese Extremities: +2 pulses bilaterally radialis/ dorsalis pedis, no cyanosis, +2 pitting edema bilateral lower extremity Neuro: Awake alert oriented x3 Psych: Normal mood and affect G/U: No Mcghee Skin: no rashes, warm and dry Lymphatic: no cervical or axillary lymphadenopathy Results & Data Results & Data Vital Signs (Past 12 Hours) Vital Signs Temp Pulse Pulse Resp BP Pulse Ox O2 Del Method 06/05/23 07:29 59 L 06/05/23 04:32 36.8 C 65 20 186/95 H 89 L High Flow Nasal Cannula 06/05/23 01:00 Nasal Cannula 06/05/23 00:59 57 L 06/04/23 23:23 67 22 94 06/04/23 23:20 36.7 C 53 L 18 130/73 92 High Flow Nasal Cannula 06/04/23 19:54 64 18 94 Nasal Cannula 06/04/23 19:48 37 C 59 L 18 119/72 93 High Flow Nasal Cannula O2 Flow Rate 06/05/23 07:29 06/05/23 04:32 9 06/05/23 01:00 9 06/05/23 00:59 06/04/23 23:23 9 06/04/23 23:20 9 06/04/23 19:54 9 06/04/23 19:48 9 Laboratory Results 06/04/23 04:01 06/04/23 04:01 PG Care Time/CCT Total # of Minutes Spent Total Time Spent with Patient: Total time spent is greater than 50% in coordination of care (as documented) at patient's floor/unit and/or counseling patient: Coding Level of Care Code 02912 SUB INP/OBS CARE 2/35MIN Diagnoses COPD exacerbation J44.1 Respiratory syncytial virus (RSV) B33.8 Bronchospasm J98.01 Hypoxemia R09.02
[2023-06-05] MEDS ORDERED: acetaZOLAMIDE 250 MG TAB PO ONE (08:00)
[2023-06-05] MEDS: BUDESONIDE 0.5 MG/2 ML VIAL (PULMICORT) NEB SCH ×2 (08:05→19:40)
[2023-06-05] MEDS: ALBUT/IPRATROP 3MG/0.5MG NEB 3 ML VIAL NEB SCH ×4 (08:05→19:40)
[2023-06-05] MEDS: FORMOTEROL 20 MCG/2 ML VIAL NEB SCH ×2 (08:05→19:40)
[2023-06-05] MEDS: ACETYLCYSTEINE 20% INHAL SOLN 4ML ***DISPENSED BY RESP. INH SCH (08:06)
[2023-06-05] MEDS: SODIUM CHLOR 7% 4 ML NEB NEB SCH (08:06)
[2023-06-05] MEDS: carvediloL 12.5 MG TAB PO SCH ×2 (10:01→18:18)
[2023-06-05] MEDS: SERTRALINE HCL 100 MG TABLET PO SCH (10:02)
[2023-06-05] MEDS: predniSONE 20 MG TAB PO SCH (10:02)
[2023-06-05] MEDS: SENNA 8.6 MG TAB PO SCH (10:02)
[2023-06-05] MEDS: lisinopril 40 MG TAB PO SCH (10:02)
[2023-06-05] MEDS: busPIRone 5 MG TAB PO SCH ×3 (10:03→21:56)
[2023-06-05] MEDS: LOVASTATIN 20 MG TAB PO SCH (10:03)
[2023-06-05] MEDS: DOXYCYCLINE HYCLATE 100 MG CAP PO SCH ×2 (10:03→21:55)
[2023-06-05] MEDS: BENZTROPINE MESYLATE 1 MG TAB PO SCH (10:03)
[2023-06-05] MEDS: guaiFENesin 600 MG TABCR PO SCH (10:03)
[2023-06-05] MEDS: POLYETHYLENE (MIRALAX) 17 GM PACK PO SCH (10:04)
[2023-06-05] MEDS: amLODIPine BESYLATE 5 MG TAB PO SCH (10:04)
[2023-06-05] MEDS: ENOXAPARIN INJ 40 MG/0.4 ML SYR SQ SCH (10:05)
[2023-06-05] MEDS: INSULIN ASPART PER UNIT CHARGE SC SCH ×4 (10:18→22:20)
[2023-06-05] MEDS ORDERED: bisacodyL 10 MG SUPP PR PRN (11:14)
[2023-06-05] MEDS ORDERED: LACTULOSE SYRUP 20 GM/30 ML UDC PO ONE (11:30)
[2023-06-05] MEDS: cefTRIAXone SODIUM 2,000 MG in DEXTROSE 5 % MINI-B 50 ML IV SCH (18:18)
--- NOTE | 2023-06-05 18:34 | Hospitalist Progress Note ---
Date of Service June 05, 2023 delayed entry date of service noted above Assessment & Plan (1) COPD exacerbation: Plan: per previous hospitalist notes with addendum: 63 yo M w/ hypertension, hypothyroidism, prediabetes, COPD, moderate persistent asthma, history of hypertrophic obstructive cardiomyopathy, grade 1 diastolic dysfunction, chronic respiratory failure with hypoxia on home oxygen therapy as per [facility] but patient states that he is not on oxygen at home. Morbid obesity, alcoholic dependence in remission, Schizoaffective disorder, medical marijuana use, comes in because of shortness of breath going on for last few days. Acute hypoxic resp. failure COPD/asthma exacerbation + RSV DuoNebs scheduled and as needed IV Solu-Medrol 40 mg 3 times daily initially Procalcitonin negative Closely monitor Two-step home oxygen evaluation prior to discharge 05/31 increased oxygen requirement from 3L previously to 8L sputum cultx unrevealing repeat CXR w/o changes from previous CT PE - no PE, however poss. PNA, started ceftriaxone and doxy. Pulmonary consulted - transitioned Breo elliptica to nebulized formoterol and budesonide while in the hospital. Continue DuoNebs. Cont. p.o. prednisone. Con t. hypertonic saline. Add mucomyst. Start acetazolamide. Repeat ABG tmrw AM. Cont. antibiotics. Will need sleep study as outpt. Repeat CT chest in 2 months. 06/02 currently on 12 L of O2 Wean off oxygen, down to 10 06/04 remains on 9 L NC continue Perforomist +Pulmicort Prednisone 40mg daily Ceftri + Doxy #4 encouraged to use Incentive spirometer and Flutter Valve 06/05 remains on 9 L gradually improving continue regimen Pulm following Metabolic Alkalosis on Acetazolamide RSV droplet precautions Supportive care History of hypertrophic obstructive cardiomyopathy Grade 1 diastolic dysfunction Has lower extremity edema on admission Had mild chest discomfort that resolved now serial cardiac enzymes negative echo -EF 65 to 70%. There is mild concentric LVH. Grade 1 diastolic dysfun ction. Poorly visualized valvular anatomy without significant stenosis or regurg. Hypertension Lisinopril, Coreg and amlodipine Will monitor Hypothyroidism cont Synthroid Hyperlipidemia On statin Diabetes Hold metformin sliding scale Will monitor Schizoaffective disorder Continue home meds DVT prophylaxis Lovenox Disposition Med/tele Full code Admission and Anticipated Discharge Date Admission Date: May 29, 2023 Subjective ff up for RSV, pneumonia, etc seen resting in bed, comfortable on 9 L NC breathing improving gradually (+) intermittent cough no chest pain no other symptoms Review of Systems Review of Systems: all noted and negative except for above Physical Exam Physical Exam: General- oriented x 3, not in distress, speaks in sentences with no effort or accessory muscle use Eyes- anicteric Neck- no JVD Lungs- (+) scattered wheeze Heart- normal rate, regular rhythm; no murmurs Abdomen- normal bowel sounds, nondistended, soft, nontender Extremities- mild pretibial edema, no calf tenderness Neuro- alert, oriented x 3; no gross focal neurologic deficits Skin- warm & dry Results & Data Results & Data Vital Signs (Past 12 Hours) Vital Signs Temp Pulse Pulse Resp BP Pulse Ox O2 Del Method 06/05/23 18:34 66 06/05/23 15:50 36.8 C 69 18 123/71 95 Room Air 06/05/23 14:18 69 18 95 Nasal Cannula 06/05/23 11:55 36.9 C 59 L 18 122/79 91 Nasal Cannula 06/05/23 10:57 73 18 94 Nasal Cannula 06/05/23 10:00 High Flow Nasal Cannula 06/05/23 08:34 36.7 C 57 L 20 119/82 93 Nasal Cannula 06/05/23 08:03 72 18 93 Nasal Cannula 06/05/23 07:29 59 L O2 Flow Rate 06/05/23 18:34 06/05/23 15:50 06/05/23 14:18 9 06/05/23 11:55 9 06/05/23 10:57 9 06/05/23 10:00 9 06/05/23 08:34 9 06/05/23 08:03 9 06/05/23 07:29
[2023-06-05] MEDS: MONTELUKAST SODIUM 10 MG TABLET PO SCH (21:55)
[2023-06-05] MEDS: guaiFENesin/DEXTROM SYRUP 200MG/20MG 10ML UDC PO SCH (21:57)
[2023-06-06] MEDS: LEVOTHYROXINE SODIUM 137 MCG TABLET PO SCH (06:00)
[2023-06-06] MEDS: guaiFENesin/DEXTROM SYRUP 200MG/20MG 10ML UDC PO SCH ×3 (06:00→20:37)
[2023-06-06] MEDS: FORMOTEROL 20 MCG/2 ML VIAL NEB SCH ×2 (07:13→19:26)
[2023-06-06] MEDS: ALBUT/IPRATROP 3MG/0.5MG NEB 3 ML VIAL NEB SCH ×4 (07:13→19:26)
[2023-06-06] MEDS: BUDESONIDE 0.5 MG/2 ML VIAL (PULMICORT) NEB SCH ×2 (07:13→19:26)
[2023-06-06] MEDS: busPIRone 5 MG TAB PO SCH ×3 (07:43→20:37)
[2023-06-06] MEDS: SENNA 8.6 MG TAB PO SCH (07:44)
[2023-06-06] MEDS: SERTRALINE HCL 100 MG TABLET PO SCH (07:44)
[2023-06-06] MEDS: LOVASTATIN 20 MG TAB PO SCH (07:44)
[2023-06-06] MEDS: carvediloL 12.5 MG TAB PO SCH ×2 (07:44→17:09)
[2023-06-06] MEDS: lisinopril 40 MG TAB PO SCH (07:44)
[2023-06-06] MEDS: amLODIPine BESYLATE 5 MG TAB PO SCH (07:44)
[2023-06-06] MEDS: predniSONE 20 MG TAB PO SCH (07:44)
[2023-06-06] MEDS: POLYETHYLENE (MIRALAX) 17 GM PACK PO SCH (07:45)
[2023-06-06] MEDS: DOXYCYCLINE HYCLATE 100 MG CAP PO SCH ×2 (07:45→20:37)
[2023-06-06] MEDS: BENZTROPINE MESYLATE 1 MG TAB PO SCH (07:45)
[2023-06-06] MEDS: INSULIN ASPART PER UNIT CHARGE SC SCH ×4 (09:18→20:38)
--- NOTE | 2023-06-06 10:47 | Pulmonology Progress Note ---
Date of Service June 06, 2023 Assessment & Plan (1) COPD exacerbation: (2) Respiratory syncytial virus (RSV): (3) Bronchospasm: (4) Hypoxemia: Plan 63-year-old male with a past medical history of obesity, hypothyroidism, intellectual disability and COPD who presented to the hospital with RSV infection and COPD exacerbation. CTA chest 05/31/2023 personally reviewed: Centrilobular emphysema appreciated bilaterally more on the right side Patchy linear opacity appreciated on the left side No mediastinal lymphadenopathy Patient had similar opacity appreciated 1 [address] chest VBG 05/29/2023: 7.43/45/56 --Acute hypoxic respiratory failure Not on any oxygen at home usually Multifactorial Pneumonia along with RSV positive Respiratory bio fire positive only for RSV on 05/29/2023 Procalcitonin negative Grade 1 diastolic dysfunction -- COPD On Trelegy inhaler at home along with montelukast Continue with nebulizer treatment while in the hospital PFT as an outpatient -- Metabolic alkalosis Likely compensation for chronic respiratory acidosis as well as contraction alkalosis --[facility]/OHS I do think patient will benefit from a BiPAP at home Would recommend outpatient polysomnography --Hemoptysis --> resolved Avoid flutter valve and hypertonic saline nebulized for the time being Plan: Repeat CT chest in 2 months Recommend outpatient polysomnography Taper prednisone off Continue with Mucinex-DM [id number] Discontinue hypertonic saline as well as Mucomyst Follow BMP from today and based on that consider Lasix or acetazolamide Continue with BiPAP nightly and as needed shortness of breath Please note the above document was generated using voice recognition software. It may contain grammatical, syntax or spelling errors.Any formal questions or concerns about the content, text or information contained within the body of this dictation should be directly addressed to the provider for clarification. Admission and Anticipated Discharge Date Admission Date: May 29, 2023 Subjective Patient seen and examined at bedside. No acute distress, notable symptoms overnight Was saturating 95% on 9 L nasal cannula I went down to 7 L No more hemoptysis since more than 24 hours Did use his BiPAP overnight Did complain of lethargic today, shortness of breath is at baseline Review of Systems 2 Review of Systems: All systems reviewed & are unremarkable except as noted in Subjective Physical Exam 2 Physical Exam: Constitutional: No acute distress HEENT: EOMI, PERRLA Respiratory system: Decreased air entry bilaterally, minimal expiratory wheeze bilaterally, no rhonchi, mild crackles bilateral lower lobes CVS: S1-S2 positive, no murmurs or gallops Abdomen: Soft, nontender, nondistended, positive bowel sounds x4, obese Extremities: +2 pulses bilaterally radialis/ dorsalis pedis, no cyanosis, +2 pitting edema bilateral lower extremity Neuro: Awake alert oriented x3 Psych: Normal mood and affect G/U: No Mcghee Skin: no rashes, warm and dry Lymphatic: no cervical or axillary lymphadenopathy Results & Data Results & Data Vital Signs (Past 12 Hours) Vital Signs Temp Pulse Pulse Resp BP BP Pulse Ox 06/06/23 07:51 36.8 C 56 L 18 114/76 90 06/06/23 07:35 56 L 20 93 06/06/23 07:30 54 L 06/06/23 03:44 37 C 59 L 16 127/65 92 06/05/23 23:19 36.9 C 63 18 116/69 94 O2 Del Method O2 Flow Rate 06/06/23 07:51 High Flow Nasal Cannula 9 06/06/23 07:35 Nasal Cannula 9 06/06/23 07:30 06/06/23 03:44 High Flow Nasal Cannula 9 06/05/23 23:19 High Flow Nasal Cannula 9 Laboratory Results 06/04/23 04:01 06/04/23 04:01 PG Care Time/CCT Total # of Minutes Spent Total Time Spent with Patient: Total time spent is greater than 50% in coordination of care (as documented) at patient's floor/unit and/or counseling patient: Coding Level of Care Code 13387 SUB INP/OBS CARE 2/35MIN Diagnoses COPD exacerbation J44.1 Respiratory syncytial virus (RSV) B33.8 Bronchospasm J98.01 Hypoxemia R09.02
--- NOTE | 2023-06-06 16:13 | Hospitalist Progress Note ---
Date of Service June 06, 2023 Assessment & Plan (1) COPD exacerbation: Plan: per previous hospitalist notes with addendum: 63 yo M w/ hypertension, hypothyroidism, prediabetes, COPD, moderate persistent asthma, history of hypertrophic obstructive cardiomyopathy, grade 1 diastolic dysfunction, chronic respiratory failure with hypoxia on home oxygen therapy as per [facility] but patient states that he is not on oxygen at home. Morbid obesity, alcoholic dependence in remission, Schizoaffective disorder, medical marijuana use, comes in because of shortness of breath going on for last few days. Acute hypoxic resp. failure COPD/asthma exacerbation + RSV DuoNebs scheduled and as needed IV Solu-Medrol 40 mg 3 times daily initially Procalcitonin negative Closely monitor Two-step home oxygen evaluation prior to discharge 05/31 increased oxygen requirement from 3L previously to 8L sputum cultx unrevealing repeat CXR w/o changes from previous CT PE - no PE, however poss. PNA, started ceftriaxone and doxy. Pulmonary consulted - transitioned Breo elliptica to nebulized formoterol and budesonide while in the hospital. Continue DuoNebs. Cont. p.o. prednisone. Cont. hypertonic saline. Add mucomyst. Start acetazolamide. Repeat ABG tmrw AM. Cont. antibiotics. Will need sleep study as outpt. Repeat CT chest in 2 months. 06/02 currently on 12 L of O2 Wean off oxygen, down to 10 06/04 remains on 9 L NC continue Perforomist +Pulmicort Prednisone 40mg daily Ceftri + Doxy #4 encouraged to use Incentive spirometer and Flutter Valve 06/06 improving now on 7 L 02 continue Guaifenesin/DM Ceftri + Doxy Prednisone taper Metabolic Alkalosis resolving RSV droplet precautions Supportive care History of hypertrophic obstructive cardiomyopathy Grade 1 diastolic dysfunction Has lower extremity edema on admission Had mild chest discomfort that resolved now serial cardiac enzymes negative echo -EF 65 to 70%. There is mild concentric LVH. Grade 1 diastolic dysfunction. Poorly visualized valvular anatomy without significant stenosis or regurg. Lasix on hold in light of metabolic alkalosis Hypertension Lisinopril, Coreg and amlodipine Will monitor Hypothyroidism cont Synthroid Hyperlipidemia On statin Diabetes Hold metformin sliding scale Will monitor Schizoaffective disorder Continue home meds DVT prophylaxis Lovenox Disposition Med/tele Full code Admission and Anticipated Discharge Date Admission Date: May 29, 2023 Subjective ff up for RSV pneumonia, etc seen resting in chair, comfortable states he feels improved compared to yesterday no chest pain, dyspnea, palpitations, dizziness no abdominal pain, nausea/vomiting (+) BM after enema today no other symptoms Review of Systems Review of Systems: all noted and negative except for above Physical Exam Physical Exam: General- oriented x 3, not in distress, speaks in sentences with no effort or accessory muscle use Eyes- anicteric Neck- no JVD Lungs- mild wheeze BL , scattered, intermittent Heart- normal rate, regular rhythm; no murmurs Abdomen- normal bowel sounds, nondistended, soft, no tenderness Extremities- no pretibial edema, no calf tenderness Neuro- alert, oriented x 3; no gross focal neurologic deficits Skin- warm & dry Results & Data Results & Data Vital Signs (Past 12 Hours) Vital Signs Temp Pulse Pulse Resp BP Pulse Ox Pulse Ox 06/06/23 15:34 65 06/06/23 14:51 36.8 C 67 18 150/81 H 90 06/06/23 14:11 66 20 90 06/06/23 12:22 06/06/23 12:09 36.7 C 62 18 129/88 91 06/06/23 11:25 56 L 20 93 06/06/23 07:51 36.8 C 56 L 18 114/76 90 06/06/23 07:35 56 L 20 93 06/06/23 07:30 54 L 06/06/23 07:00 90 O2 Del Method O2 Del Method O2 Flow Rate O2 Flow Rate 06/06/23 15:34 06/06/23 14:51 Room Air 06/06/23 14:11 Room Air 7 06/06/23 12:22 Nasal Cannula 9 06/06/23 12:09 High Flow Nasal Cannula 7 06/06/23 11:25 Nasal Cannula 9 06/06/23 07:51 High Flow Nasal Cannula 9 06/06/23 07:35 Nasal Cannula 9 06/06/23 07:30 06/06/23 07:00 Nasal Cannula 9 all noted and reviewed including below
[2023-06-06 16:52] LABS: Calcium 9.1 mg/dl (8.6-10.3); Potassium 4.3 mmol/L (3.5-5.1)
[2023-06-06] MEDS: cefTRIAXone SODIUM 2,000 MG in DEXTROSE 5 % MINI-B 50 ML IV SCH (17:10)
[2023-06-06 17:21] LABS: BUN Creatinine Ratio 28.8 (10-20); Creatinine Clr Calc Pharmacy 145.2 ml/min; Est GFR (African American) 114.4 ml/min; Est GFR (Non-African American) 98.7 ml/min
[2023-06-06] MEDS ORDERED: FUROSEMIDE 40 MG/4 ML VIAL IV ONE (17:31)
[2023-06-06] MEDS: MONTELUKAST SODIUM 10 MG TABLET PO SCH (20:37)
[2023-06-07] MEDS: guaiFENesin/DEXTROM SYRUP 200MG/20MG 10ML UDC PO SCH ×3 (05:25→21:05)
[2023-06-07] MEDS: LEVOTHYROXINE SODIUM 137 MCG TABLET PO SCH (05:25)
[2023-06-07] MEDS: ALBUT/IPRATROP 3MG/0.5MG NEB 3 ML VIAL NEB SCH ×4 (07:04→20:18)
[2023-06-07] MEDS: BUDESONIDE 0.5 MG/2 ML VIAL (PULMICORT) NEB SCH ×2 (07:04→20:18)
[2023-06-07] MEDS: FORMOTEROL 20 MCG/2 ML VIAL NEB SCH ×2 (07:04→20:18)
[2023-06-07] MEDS: INSULIN ASPART PER UNIT CHARGE SC SCH ×4 (08:51→21:06)
[2023-06-07] MEDS: predniSONE 20 MG TAB PO SCH (08:52)
[2023-06-07] MEDS: busPIRone 5 MG TAB PO SCH ×3 (08:52→21:06)
[2023-06-07] MEDS: FUROSEMIDE 20 MG TAB PO SCH (08:52)
[2023-06-07] MEDS: carvediloL 12.5 MG TAB PO SCH ×2 (08:53→16:07)
[2023-06-07] MEDS: SERTRALINE HCL 100 MG TABLET PO SCH (08:53)
[2023-06-07] MEDS: LOVASTATIN 20 MG TAB PO SCH (08:53)
[2023-06-07] MEDS: BENZTROPINE MESYLATE 1 MG TAB PO SCH (08:53)
[2023-06-07] MEDS: lisinopril 40 MG TAB PO SCH (08:53)
[2023-06-07] MEDS: POLYETHYLENE (MIRALAX) 17 GM PACK PO SCH ×2 (08:54)
[2023-06-07] MEDS: amLODIPine BESYLATE 5 MG TAB PO SCH (08:54)
[2023-06-07] MEDS: DOXYCYCLINE HYCLATE 100 MG CAP PO SCH (08:54)
[2023-06-07] MEDS: SENNA 8.6 MG TAB PO SCH (08:57)
--- NOTE | 2023-06-07 11:27 | Pulmonology Progress Note ---
Date of Service June 07, 2023 Assessment & Plan (1) COPD exacerbation: (2) Respiratory syncytial virus (RSV): (3) Bronchospasm: (4) Hypoxemia: Plan 63-year-old male with a past medical history of obesity, hypothyroidism, intellectual disability and COPD who presented to the hospital with RSV infection and COPD exacerbation. CTA chest 05/31/2023 personally reviewed: Centrilobular emphysema appreciated bilaterally more on the right side Patchy linear opacity appreciated on the left side No mediastinal lymphadenopathy Patient had similar opacity appreciated 1 [address] chest VBG 05/29/2023: 7.43/45/56 --Acute hypoxic respiratory failure Not on any oxygen at home usually Multifactorial Pneumonia along with RSV positive Respiratory bio fire positive only for RSV on 05/29/2023 Procalcitonin negative Grade 1 diastolic dysfunction -- COPD On Trelegy inhaler at home along with montelukast Continue with nebulizer treatment while in the hospital PFT as an outpatient -- Metabolic alkalosis Likely compensation for chronic respiratory acidosis as well as contraction alkalosis --MARTA/OHS I do think patient will benefit from a BiPAP at home Would recommend outpatient polysomnography --Hemoptysis --> resolved Avoid flutter valve and hypertonic saline nebulized for the time being Plan: Repeat CT chest in 2 months Recommend outpatient polysomnography. If patient is going to rehab would recommend the same BiPAP setting which she is on right now. Try to keep O2 saturation between 90-92% Taper prednisone off Continue with Mucinex-DM [id number] Discontinue hypertonic saline as well as Mucomyst Continue with BiPAP nightly and as needed shortness of breath No further recommendation from pulmonary perspective, will sign off Please call directly with any questions Please note the above document was generated using voice recognition software. It may contain grammatical, syntax or spelling errors.Any formal questions or concerns about the content, text or information contained within the body of this dictation should be directly addressed to the provider for clarification. Admission and Anticipated Discharge Date Admission Date: May 29, 2023 Subjective Patient seen and examined at bedside. No acute distress, no adverse events overnight He was saturating 92% on 4 L nasal cannula. No hemoptysis since 2 days. Says that he is feeling better. Did use his BiPAP overnight No nausea vomiting Fair appetite More energetic today Review of Systems 2 Review of Systems: All systems reviewed & are unremarkable except as noted in Subjective Physical Exam 2 Physical Exam: Constitutional: No acute distress HEENT: EOMI, PERRLA Respiratory system: Decreased air entry bilaterally, minimal expiratory wheeze bilaterally, no rhonchi, mild crackles bilateral lower lobes CVS: S1-S2 positive, no murmurs or gallops Abdomen: Soft, nontender, nondistended, positive bowel sounds x4, obese Extremities: +2 pulses bilaterally radialis/ dorsalis pedis, no cyanosis, +2 pitting edema bilateral lower extremity Neuro: Awake alert oriented x3 Psych: Normal mood and affect G/U: No Mcghee Skin: no rashes, warm and dry Lymphatic: no cervical or axillary lymphadenopathy Results & Data Results & Data Vital Signs (Past 12 Hours) Vital Signs Temp Pulse Pulse Resp BP BP Pulse Ox 06/07/23 11:19 66 20 96 06/07/23 11:04 06/07/23 07:48 36.8 C 66 20 156/57 H 92 06/07/23 07:30 77 20 94 06/07/23 07:17 64 06/07/23 03:56 36.7 C 60 20 139/89 94 O2 Del Method O2 Flow Rate 06/07/23 11:19 Nasal Cannula 5 06/07/23 11:04 Nasal Cannula 5 06/07/23 07:48 Nasal Cannula 5 06/07/23 07:30 Nasal Cannula 7 06/07/23 07:17 06/07/23 03:56 High Flow Nasal Cannula 7 Laboratory Results 06/04/23 04:01 06/06/23 16:19 PG Care Time/CCT Total # of Minutes Spent Total Time Spent with Patient: Total time spent is greater than 50% in coordination of care (as documented) at patient's floor/unit and/or counseling patient: Coding Level of Care Code 98180 SUB INP/OBS CARE 2/35MIN Diagnoses COPD exacerbation J44.1 Respiratory syncytial virus (RSV) B33.8 Bronchospasm J98.01 Hypoxemia R09.02
--- NOTE | 2023-06-07 17:52 | Hospitalist Progress Note ---
Date of Service June 07, 2023 Assessment & Plan (1) COPD exacerbation: Plan: per previous hospitalist notes with addendum: 63 yo M w/ hypertension, hypothyroidism, prediabetes, COPD, moderate persistent asthma, history of hypertrophic obstructive cardiomyopathy, grade 1 diastolic dysfunction, chronic respiratory failure with hypoxia on home oxygen therapy as per [facility] but patient states that he is not on oxygen at home. Morbid obesity, alcoholic dependence in remission, Schizoaffective disorder, medical marijuana use, comes in because of shortness of breath going on for last few days. Acute hypoxic resp. failure COPD/asthma exacerbation + RSV DuoNebs scheduled and as needed IV Solu-Medrol 40 mg 3 times daily initially Procalcitonin negative Closely monitor Two-step home oxygen evaluation prior to discharge 05/31 increased oxygen requirement from 3L previously to 8L sputum cultx unrevealing repeat CXR w/o changes from previous CT PE - no PE, however poss. PNA, started ceftriaxone and doxy. Pulmonary consulted - transitioned Breo elliptica to nebulized formoterol and budesonide while in the hospital. Continue DuoNebs. Cont. p.o. prednisone. Cont. hypertonic saline. Add mucomyst. Start acetazolamide. Repeat ABG tmrw AM. Cont. antibiotics. Will need sleep study as outpt. Repeat CT chest in 2 months. 06/02 currently on 12 L of O2 Wean off oxygen, down to 10 06/04 remains on 9 L NC continue Perforomist +Pulmicort Prednisone 40mg daily Ceftri + Doxy #4 encouraged to use Incentive spirometer and Flutter Valve 06/06 improving now on 7 L 02 continue Guaifenesin/DM Ceftri + Doxy Prednisone taper 06/07 continues to improve now on 5 L O2 continue present regimen Metabolic Alkalosis resolving RSV droplet precautions Supportive care History of hypertrophic obstructive cardiomyopathy Grade 1 diastolic dysfunction Has lower extremity edema on admission Had mild chest discomfort that resolved now serial cardiac enzymes negative echo -EF 65 to 70%. There is mild concentric LVH. Grade 1 diastolic dysfunction. Poorly visualized valvular anatomy without significant stenosis or regurg. given Acetazolamide Lasix resumed Hypertension Lisinopril, Coreg and amlodipine stable Hypothyroidism cont Synthroid Hyperlipidemia On statin Diabetes Hold metformin sliding scale Will monitor Schizoaffective disorder Continue home meds DVT prophylaxis Lovenox Disposition Med/tele Full code Admission and Anticipated Discharge Date Admission Date: May 29, 2023 Subjective ff up for RSV, etc seen resting in bed, comfortable on 5 L NC states he feels ok today breathing continues to improve less cough no abdominal pain no other new symptoms Review of Systems Review of Systems: all noted and negative except for above Physical Exam Physical Exam: General- oriented x 3, not in distress, speaks in sentences with no effort or accessory muscle use Eyes- anicteric Neck- no JVD Lungs- clear breath sounds bilaterally, no rales/wheezes Heart- normal rate, regular rhythm; no murmurs Abdomen- normal bowel sounds, nondistended, soft, no tenderness Extremities- no pretibial edema, no calf tenderness Neuro- alert, oriented x 3; no gross focal neurologic deficits Skin- warm & dry Results & Data Results & Data Vital Signs (Past 12 Hours) Vital Signs Temp Pulse Pulse Resp BP Pulse Ox O2 Del Method 06/07/23 15:59 37.1 C 62 20 120/72 93 Nasal Cannula 06/07/23 15:22 62 06/07/23 14:48 71 20 96 Nasal Cannula 06/07/23 12:04 36.6 C 62 20 102/56 L 92 Nasal Cannula 06/07/23 11:19 66 20 96 Nasal Cannula 06/07/23 11:04 Nasal Cannula 06/07/23 07:48 36.8 C 66 20 156/57 H 92 Nasal Cannula 06/07/23 07:30 77 20 94 Nasal Cannula 06/07/23 07:17 64 O2 Flow Rate 06/07/23 15:59 4 06/07/23 15:22 06/07/23 14:48 4 06/07/23 12:04 4 06/07/23 11:19 5 06/07/23 11:04 5 06/07/23 07:48 5 06/07/23 07:30 7 06/07/23 07:17 all noted and reviewed including below
[2023-06-07] MEDS: MONTELUKAST SODIUM 10 MG TABLET PO SCH (21:06)
[2023-06-08] MEDS: guaiFENesin/DEXTROM SYRUP 200MG/20MG 10ML UDC PO SCH ×3 (05:14→21:17)
[2023-06-08] MEDS: LEVOTHYROXINE SODIUM 137 MCG TABLET PO SCH (05:14)
[2023-06-08] MEDS: FORMOTEROL 20 MCG/2 ML VIAL NEB SCH ×2 (06:45→19:53)
[2023-06-08] MEDS: BUDESONIDE 0.5 MG/2 ML VIAL (PULMICORT) NEB SCH ×2 (06:45→19:53)
[2023-06-08] MEDS: ALBUT/IPRATROP 3MG/0.5MG NEB 3 ML VIAL NEB SCH ×4 (07:19→19:53)
[2023-06-08] MEDS: FUROSEMIDE 20 MG TAB PO SCH (07:26)
[2023-06-08] MEDS: LOVASTATIN 20 MG TAB PO SCH (07:26)
[2023-06-08] MEDS: POLYETHYLENE (MIRALAX) 17 GM PACK PO SCH ×2 (07:26→07:28)
[2023-06-08] MEDS: predniSONE 20 MG TAB PO SCH (07:26)
[2023-06-08] MEDS: SENNA 8.6 MG TAB PO SCH (07:27)
[2023-06-08] MEDS: lisinopril 40 MG TAB PO SCH (07:27)
[2023-06-08] MEDS: carvediloL 12.5 MG TAB PO SCH ×2 (07:27→15:58)
[2023-06-08] MEDS: BENZTROPINE MESYLATE 1 MG TAB PO SCH (07:28)
[2023-06-08] MEDS: SERTRALINE HCL 100 MG TABLET PO SCH (07:28)
[2023-06-08] MEDS: amLODIPine BESYLATE 5 MG TAB PO SCH (07:28)
[2023-06-08] MEDS: busPIRone 5 MG TAB PO SCH ×3 (07:29→21:17)
[2023-06-08] MEDS: INSULIN ASPART PER UNIT CHARGE SC SCH ×4 (08:47→21:15)
[2023-06-08 09:19] LABS: BUN Creatinine Ratio 33.3 (10-20); Calcium 9.2 mg/dl (8.6-10.3); Est GFR (African American) 115.1 ml/min; Est GFR (Non-African American) 99.3 ml/min; Potassium 3.6 mmol/L (3.5-5.1)
--- NOTE | 2023-06-08 13:28 | Hospitalist Progress Note ---
Date of Service June 08, 2023 Assessment & Plan (1) COPD exacerbation: Plan: per previous hospitalist notes with addendum: 63 yo M w/ hypertension, hypothyroidism, prediabetes, COPD, moderate persistent asthma, history of hypertrophic obstructive cardiomyopathy, grade 1 diastolic dysfunction, chronic respiratory failure with hypoxia on home oxygen therapy as per [facility] but patient states that he is not on oxygen at home. Morbid obesity, alcoholic dependence in remission, Schizoaffective disorder, medical marijuana use, comes in because of shortness of breath going on for last few days. Acute hypoxic resp. failure COPD/asthma exacerbation + RSV DuoNebs scheduled and as needed IV Solu-Medrol 40 mg 3 times daily initially Procalcitonin negative Closely monitor Two-step home oxygen evaluation prior to discharge 05/31 increased oxygen requirement from 3L previously to 8L sputum cultx unrevealing repeat CXR w/o changes from previous CT PE - no PE, however poss. PNA, started ceftriaxone and doxy. Pulmonary consulted - transitioned Breo elliptica to nebulized formoterol and budesonide while in the hospital. Continue DuoNebs. Cont. p.o. prednisone. Cont. hypertonic saline. Add mucomyst. Start acetazolamide. Repeat ABG tmrw AM. Cont. antibiotics. Will need sleep study as outpt. Repeat CT chest in 2 months. 06/02 currently on 12 L of O2 Wean off oxygen, down to 10 06/04 remains on 9 L NC continue Perforomist +Pulmicort Prednisone 40mg daily Ceftri + Doxy #4 encouraged to use Incentive spirometer and Flutter Valve 06/06 improving now on 7 L 02 continue Guaifenesin/DM Ceftri + Doxy Prednisone taper 06/07 continues to improve now on 5 L O2 continue present regimen 06/08 Improving gradually Currently on 4 L Continue prednisone 20 mg daily number 3 out of 5 then 10 mg daily x 5 days Continue DuoNeb Metabolic Alkalosis Resolved Received acetazolamide RSV droplet precautions Supportive care History of hypertrophic obstructive cardiomyopathy Grade 1 diastolic dysfunction Has lower extremity edema on admission Had mild chest discomfort that resolved now serial cardiac enzymes negative echo -EF 65 to 70%. There is mild concentric LVH. Grade 1 diastolic dysfunction. Poorly visualized valvular anatomy without significant stenosis or regurg. Lasix resumed Currently appears euvolemic Hypertension Lisinopril, Coreg and amlodipine stable Hypothyroidism cont Synthroid Hyperlipidemia On statin Diabetes Hold metformin sliding scale Will monitor Schizoaffective disorder Continue home meds DVT prophylaxis Lovenox Disposition Med/tele Full code Admission and Anticipated Discharge Date Admission Date: May 29, 2023 Subjective Follow-up for RSV, pneumonia, etc. Seen resting in bed, comfortable, not in distress On 4 L States he is feels that he is continue to improve Breathing is improving No abdominal pain No BM today No other new symptoms Review of Systems Review of Systems: all noted and negative except for above Physical Exam Physical Exam: General- oriented x 3, not in distress, speaks in sentences with no effort or accessory muscle use Eyes- anicteric Neck- no JVD Lungs-mild intermittent wheeze scattered, bilateral Heart- normal rate, regular rhythm; no murmurs Abdomen- normal bowel sounds, nondistended, soft, no tenderness Extremities-mild pretibial edema, no calf tenderness Neuro- alert, oriented x 3; no gross focal neurologic deficits Skin- warm & dry Results & Data Results & Data Vital Signs (Past 12 Hours) Vital Signs Temp Pulse Pulse Resp BP BP Pulse Ox 06/08/23 11:39 36.4 C L 65 20 139/68 91 06/08/23 10:55 69 14 89 L 06/08/23 07:45 36.4 C L 61 20 156/76 H 93 06/08/23 07:20 59 L 06/08/23 07:19 61 20 91 06/08/23 07:04 06/08/23 03:35 36.5 C 62 20 106/58 L 93 06/08/23 03:23 80 20 91 O2 Del Method O2 Flow Rate 06/08/23 11:39 Nasal Cannula 4 06/08/23 10:55 Nasal Cannula 4 06/08/23 07:45 Nasal Cannula 4 06/08/23 07:20 06/08/23 07:19 Nasal Cannula 4 06/08/23 07:04 Nasal Cannula 4 06/08/23 03:35 CPAP 4 06/08/23 03:23 4 all noted and reviewed including below
[2023-06-08] MEDS ORDERED: ALBUT/IPRATROP 3MG/0.5MG NEB 3 ML VIAL ONE (15:07)
[2023-06-08] MEDS ORDERED: FORMOTEROL 20 MCG/2 ML VIAL ONE (19:18)
[2023-06-08] MEDS: MONTELUKAST SODIUM 10 MG TABLET PO SCH (21:17)
[2023-06-09 05:39] LABS: Calcium 9.2 mg/dl (8.6-10.3); Creatinine Clr Calc Pharmacy 144.9 ml/min; Est GFR (African American) 114.4 ml/min; Est GFR (Non-African American) 98.7 ml/min; Potassium 3.8 mmol/L (3.5-5.1)
[2023-06-09] MEDS: LEVOTHYROXINE SODIUM 137 MCG TABLET PO SCH (06:17)
[2023-06-09] MEDS: guaiFENesin/DEXTROM SYRUP 200MG/20MG 10ML UDC PO SCH ×3 (06:17→20:49)
[2023-06-09] MEDS ORDERED: FORMOTEROL 20 MCG/2 ML VIAL ONE (07:03)
[2023-06-09] MEDS: ALBUT/IPRATROP 3MG/0.5MG NEB 3 ML VIAL NEB SCH ×4 (07:20→19:43)
[2023-06-09] MEDS: BUDESONIDE 0.5 MG/2 ML VIAL (PULMICORT) NEB SCH ×2 (07:22→19:43)
[2023-06-09] MEDS: FORMOTEROL 20 MCG/2 ML VIAL NEB SCH ×2 (07:22→19:43)
[2023-06-09] MEDS: SENNA 8.6 MG TAB PO SCH (08:16)
[2023-06-09] MEDS: busPIRone 5 MG TAB PO SCH ×3 (08:16→20:49)
[2023-06-09] MEDS: carvediloL 12.5 MG TAB PO SCH ×2 (08:17→17:15)
[2023-06-09] MEDS: amLODIPine BESYLATE 5 MG TAB PO SCH (08:17)
[2023-06-09] MEDS: predniSONE 20 MG TAB PO SCH (08:17)
[2023-06-09] MEDS: SERTRALINE HCL 100 MG TABLET PO SCH (08:17)
[2023-06-09] MEDS: FUROSEMIDE 20 MG TAB PO SCH (08:18)
[2023-06-09] MEDS: lisinopril 40 MG TAB PO SCH (08:18)
[2023-06-09] MEDS: LOVASTATIN 20 MG TAB PO SCH (08:18)
[2023-06-09] MEDS: BENZTROPINE MESYLATE 1 MG TAB PO SCH (08:18)
[2023-06-09] MEDS: POLYETHYLENE (MIRALAX) 17 GM PACK PO SCH ×2 (08:19→09:09)
[2023-06-09] MEDS: INSULIN ASPART PER UNIT CHARGE SC SCH ×4 (08:28→20:46)
--- NOTE | 2023-06-09 15:35 | Hospitalist Progress Note ---
Date of Service June 09, 2023 Assessment & Plan (1) COPD exacerbation: Plan: per previous hospitalist notes with addendum: 63 yo M w/ hypertension, hypothyroidism, prediabetes, COPD, moderate persistent asthma, history of hypertrophic obstructive cardiomyopathy, grade 1 diastolic dysfunction, chronic respiratory failure with hypoxia on home oxygen therapy as per [facility] but patient states that he is not on oxygen at home. Morbid obesity, alcoholic dependence in remission, Schizoaffective disorder, medical marijuana use, comes in because of shortness of breath going on for last few days. Acute hypoxic resp. failure COPD/asthma exacerbation + RSV DuoNebs scheduled and as needed IV Solu-Medrol 40 mg 3 times daily initially Procalcitonin negative Closely monitor Two-step home oxygen evaluation prior to discharge 05/31 increased oxygen requirement from 3L previously to 8L sputum cultx unrevealing repeat CXR w/o changes from previous CT PE - no PE, however poss. PNA, started ceftriaxone and doxy. Pulmonary consulted - transitioned Breo elliptica to nebulized formoterol and budesonide while in the hospital. Continue DuoNebs. Cont. p.o. prednisone. Cont. hypertonic saline. Add mucomyst. Start acetazolamide. Repeat ABG tmrw AM. Cont. antibiotics. Will need sleep study as outpt. Repeat CT chest in 2 months. 06/02 currently on 12 L of O2 Wean off oxygen, down to 10 06/04 remains on 9 L NC continue Perforomist +Pulmicort Prednisone 40mg daily Ceftri + Doxy #4 encouraged to use Incentive spirometer and Flutter Valve 06/06 improving now on 7 L 02 continue Guaifenesin/DM Ceftri + Doxy Prednisone taper 06/07 continues to improve now on 5 L O2 continue present regimen 06/08 Improving gradually Currently on 4 L Continue prednisone 20 mg daily number 3 out of 5 then 10 mg daily x 5 days Continue DuoNeb 06/09 improving currently on 2 L NC Continue prednisone 20 mg daily number 3 out of 5 then 10 mg daily x 5 days Continue DuoNeb Metabolic Alkalosis Resolved Received acetazolamide RSV droplet precautions Supportive care History of hypertrophic obstructive cardiomyopathy Grade 1 diastolic dysfunction Has lower extremity edema on admission Had mild chest discomfort that resolved now serial cardiac enzymes negative echo -EF 65 to 70%. There is mild concentric LVH. Grade 1 diastolic dysfunction. Poorly visualized valvular anatomy without significant stenosis or regurg. Lasix resumed Currently appears euvolemic Hypertension Lisinopril, Coreg and amlodipine stable Hypothyroidism cont Synthroid Hyperlipidemia On statin Diabetes Hold metformin sliding scale Will monitor Schizoaffective disorder Continue home meds DVT prophylaxis Lovenox Disposition Med/tele Full code Admission and Anticipated Discharge Date Admission Date: May 29, 2023 Subjective ff up for RSV, etc seen resting in bed, comfortable states he feels fine overall breathing improving no other symptoms Review of Systems Review of Systems: all noted and negative except for above Physical Exam Physical Exam: General- oriented x 3, not in distress, speaks in sentences with no effort or accessory muscle use Eyes- anicteric Neck- no JVD Lungs- faint rhonchi, intermittent Heart- normal rate, regular rhythm; no murmurs Abdomen- normal bowel sounds, nondistended, soft, nontender Extremities- no pretibial edema, no calf tenderness Neuro- alert, oriented x 3; no gross focal neurologic deficits Skin- warm & dry Results & Data Results & Data Vital Signs (Past 12 Hours) Vital Signs Temp Pulse Pulse Resp BP Pulse Ox O2 Del Method 06/09/23 14:05 62 06/09/23 11:32 37.2 C 64 18 120/73 90 Nasal Cannula 06/09/23 11:27 65 20 93 Nasal Cannula 06/09/23 09:11 Nasal Cannula 06/09/23 07:52 37 C 61 18 128/76 91 Nasal Cannula 06/09/23 07:22 61 22 90 Nasal Cannula 06/09/23 05:59 60 06/09/23 04:02 36.8 C 58 L 22 137/70 90 Room Air O2 Flow Rate 06/09/23 14:05 06/09/23 11:32 2 06/09/23 11:27 3 06/09/23 09:11 2 06/09/23 07:52 2 06/09/23 07:22 2 06/09/23 05:59 06/09/23 04:02 all noted and reviewed including below
[2023-06-09] MEDS: MONTELUKAST SODIUM 10 MG TABLET PO SCH (20:49)
[2023-06-10] MEDS: LEVOTHYROXINE SODIUM 137 MCG TABLET PO SCH (05:56)
[2023-06-10] MEDS: guaiFENesin/DEXTROM SYRUP 200MG/20MG 10ML UDC PO SCH (05:56)
[2023-06-10] MEDS: BUDESONIDE 0.5 MG/2 ML VIAL (PULMICORT) NEB SCH (07:27)
[2023-06-10] MEDS: ALBUT/IPRATROP 3MG/0.5MG NEB 3 ML VIAL NEB SCH ×2 (07:27→10:52)
[2023-06-10] MEDS: FORMOTEROL 20 MCG/2 ML VIAL NEB SCH (07:27)
[2023-06-10] MEDS: busPIRone 5 MG TAB PO SCH (08:01)
[2023-06-10] MEDS: SERTRALINE HCL 100 MG TABLET PO SCH (08:02)
[2023-06-10] MEDS: BENZTROPINE MESYLATE 1 MG TAB PO SCH (08:02)
[2023-06-10] MEDS: POLYETHYLENE (MIRALAX) 17 GM PACK PO SCH (08:03)
[2023-06-10] MEDS: LOVASTATIN 20 MG TAB PO SCH (08:03)
[2023-06-10] MEDS: FUROSEMIDE 20 MG TAB PO SCH (08:03)
[2023-06-10] MEDS: amLODIPine BESYLATE 5 MG TAB PO SCH (08:03)
[2023-06-10] MEDS: lisinopril 40 MG TAB PO SCH (08:03)
[2023-06-10] MEDS: SENNA 8.6 MG TAB PO SCH (08:04)
[2023-06-10] MEDS: INSULIN ASPART PER UNIT CHARGE SC SCH (08:51)
[2023-06-10] MEDS: carvediloL 12.5 MG TAB PO SCH (08:57)
--- NOTE | 2023-06-10 10:56 | Hospitalist Progress Note ---
Date of Service June 10, 2023 Assessment & Plan (1) COPD exacerbation: Plan: per previous hospitalist notes with addendum: 63 yo M w/ hypertension, hypothyroidism, prediabetes, COPD, moderate persistent asthma, history of hypertrophic obstructive cardiomyopathy, grade 1 diastolic dysfunction, chronic respiratory failure with hypoxia on home oxygen therapy as per [facility] but patient states that he is not on oxygen at home. Morbid obesity, alcoholic dependence in remission, Schizoaffective disorder, medical marijuana use, comes in because of shortness of breath going on for last few days. Acute hypoxic resp. failure COPD/asthma exacerbation + RSV DuoNebs scheduled and as needed IV Solu-Medrol 40 mg 3 times daily initially Procalcitonin negative Closely monitor Two-step home oxygen evaluation prior to discharge 05/31 increased oxygen requirement from 3L previously to 8L sputum cultx unrevealing repeat CXR w/o changes from previous CT PE - no PE, however poss. PNA, started ceftriaxone and doxy. Pulmonary consulted - transitioned Breo elliptica to nebulized formoterol and budesonide while in the hospital. Continue DuoNebs. Cont. p.o. prednisone. Cont. hypertonic saline. Add mucomyst. Start acetazolamide. Repeat ABG tmrw AM. Cont. antibiotics. Will need sleep study as outpt. Repeat CT chest in 2 months. 06/02 currently on 12 L of O2 Wean off oxygen, down to 10 06/04 remains on 9 L NC continue Perforomist +Pulmicort Prednisone 40mg daily Ceftri + Doxy #4 encouraged to use Incentive spirometer and Flutter Valve 06/06 improving now on 7 L 02 continue Guaifenesin/DM Ceftri + Doxy Prednisone taper 06/07 continues to improve now on 5 L O2 continue present regimen 06/08 Improving gradually Currently on 4 L Continue prednisone 20 mg daily number 3 out of 5 then 10 mg daily x 5 days Continue DuoNeb 06/10 improved clinically currently on 2-3 L NC Continue prednisone 20 mg daily number 4 out of 5 then 10 mg daily x 3 days Continue DuoNeb, Performist, Bud[place]ide Other Radiation Officer recommendations: Repeat CT chest in 2 months Recommend outpatient polysomnography. If patient is going to rehab would recommend the same BiPAP setting which she is on right now. Try to keep O2 saturation between 90-92% Taper prednisone off Continue with Mucinex-DM [id number] Discontinue hypertonic saline as well as Mucomyst Continue with BiPAP nightly and as needed shortness of breath Metabolic Alkalosis Resolved Received acetazolamide RSV droplet precautions ordered Supportive care History of hypertrophic obstructive cardiomyopathy Grade 1 diastolic dysfunction Has lower extremity edema on admission Had mild chest discomfort that resolved now serial cardiac enzymes negative echo -EF 65 to 70%. There is mild concentric LVH. Grade 1 diastolic dysfunction. Poorly visualized valvular anatomy without significant stenosis or regurg. continue Lasix 20mg po daily monitor volume status, adjust accordingly Hypertension Lisinopril, Coreg and amlodipine stable Hypothyroidism cont Synthroid Hyperlipidemia On statin Diabetes A1c 6.0 continue Metformin Schizoaffective disorder Continue home meds DVT prophylaxis Lovenox Disposition discharge to Acute Rehab ff up with PCP in 1 week Admission and Anticipated Discharge Date Admission Date: May 29, 2023 Subjective ff up for RSV, pneumonia, etc seen resting in bed, comfortable on 3 L nasal cannula breathing is much better no cough no chest pain, dyspnea, palpitations, dizziness no abdominal pain, nausea/vomiting no other new symptom Review of Systems Review of Systems: all noted and negative except for above Physical Exam Physical Exam: General- oriented x 3, not in distress, speaks in sentences with no effort or accessory muscle use Eyes- anicteric Neck- no JVD Lungs- clear breath sounds bilaterally, no crackles/wheezing Heart- normal rate, regular rhythm; no murmurs Abdomen- normal bowel sounds, nondistended, soft, nontender Extremities- mild pretibial edema, no calf tenderness Neuro- alert, oriented x 3; no gross focal neurologic deficits Skin- warm & dry Results & Data Results & Data Vital Signs (Past 12 Hours) Vital Signs Temp Pulse Pulse Resp BP BP Pulse Ox 06/10/23 10:54 70 18 90 06/10/23 07:54 36.5 C 58 L 18 134/87 92 06/10/23 07:31 58 L 18 92 06/10/23 07:14 06/10/23 05:58 61 06/10/23 03:06 36.7 C 56 L 18 130/62 92 06/09/23 23:44 57 L 06/09/23 23:13 36.6 C 60 103/64 91 O2 Del Method O2 Flow Rate 06/10/23 10:54 Nasal Cannula 2.5 06/10/23 07:54 Nasal Cannula 3 06/10/23 07:31 Nasal Cannula 3 06/10/23 07:14 Nasal Cannula 3 06/10/23 05:58 06/10/23 03:06 Nasal Cannula 4 06/09/23 23:44 06/09/23 23:13 Nasal Cannula 5 all noted and reviewed including below
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
== END 2023-06-10 13:17 | DRG 190 ==
LOC: ED 02:34 → SUATTDRO 06:25 → EDINP 06:25 → 2W 11:52

== ENCOUNTER 2023-09-24 21:49 | Observation (INO) ==
[2023-09-24 22:36] LABS: Basophils # (auto) 0.05 K/uL (0.00-0.20); Basophils % (auto) 0.5 %; Eosinophils # (auto) 0.15 K/uL (0.00-0.50); Eosinophils % (auto) 1.4 %; Hematocrit (blood only) 49.5 % (42.0-52.0); Hemoglobin 16.7 g/dl (14.0-18.0); Immature Granulocytes # (auto) 0.05 K/uL (0.01-0.20); Immature Granulocytes % (auto) 0.5 %; Lymphocytes % (auto) 18.5 %; Mean Corpuscular Hemoglobin 28.6 pg (25.0-34.0); Mean Corpuscular Hgb Conc 33.7 g/dL (32.0-36.0); Mean Corpuscular Volume 84.9 fL (80.0-100.0); Mean Platelet Volume 8.7 fL (9.4-12.4); Monocytes # (auto) 0.95 K/uL (0.11-0.59); Monocytes % (auto) 8.8 %; Neutrophils # (auto) 7.64 K/uL (1.40-6.50); Neutrophils % (auto) 70.3 %; Platelet Count 319 K/uL (130-400); RDW Coefficient of Variation 14.6 % (11.5-14.5); RDW Standard Deviation 44.5 fL (36.4-46.3); Red Blood Count 5.83 M/uL (4.70-6.10); White Blood Count 10.84 K/ul (4.8-10.8)
[2023-09-24 22:47] LABS: Base Excess VBG 3.7 mEq/L; HCO3 VBG 30 mmol/L; Oxygen Saturation VBG 86.5 %; PCO2 VBG 49 mmHg (38-50); PO2 VBG 53 mmHg; pH VBG 7.39 (7.36-7.41)
[2023-09-24 22:53] LABS: Albumin Globulin Ratio 1.5 (0.9-2); Albumin Level 3.9 gm/dl (3.4-5.0); BUN Creatinine Ratio 16.9 (10-20); Bilirubin,Total 0.4 mg/dl (0.2-1.0); Calcium 9.1 mg/dl (8.6-10.3); Creatinine Clr Calc Pharmacy 174.4 ml/min; Est GFR (African American) 124.9 ml/min; Est GFR (Non-African American) 107.7 ml/min; Globulin 2.6 gm/dl (2.5-4.0); Total Protein 6.5 gm/dl (6.0-8.3)
[2023-09-24 22:57] LABS: iSTAT Creatinine 0.5 mg/dl (0.6-1.3); iSTAT Hemoglobin 16.3 g/dl (14.0-18.0); iSTAT Ionized Calcium 1.17 mmol/l (1.12-1.32); iSTAT Potassium 4.1 mmol/L (3.3-5.0)
[2023-09-24 23:05] LABS: Prothrombin Time 10.8 Seconds (9.0-12.0)
--- NOTE | 2023-09-24 23:15 | Emergency Department Note ---
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 effusions, stable to minimally increased from prior exam. ACT 112: Negative or not required by law. Electronically signed by: Omi Mock M.D. 09/25/2023 7:55 AM Chest CTA 09/24/23 22:51 CT angio chest PE protocol CLINICAL HISTORY: chest tightness, copd, r/o PE TECHNIQUE: Multidetector row helical CT of the chest was performed with angiographic protocol. Coronal and sagittal reformations were obtained. Coronal and sagittal MIPS were obtained from the axial data set and were submitted for review. Automated dose lowering techniques and/or adjustment according to patient size were utilized for this exam. CT DOSE: 902.94 mGy.cm Comparison: Comparison is made to CT chest 05/31/2023 FINDINGS: Lungs and pleura: Atelectasis is seen. Bronchial wall thickening is noted. There are a few pulmonary cysts. Heart and pericardium: Heart size is normal. No pericardial effusion. Vessels: No evidence of pulmonary embolism. Mild atherosclerotic disease is seen. Mediastinum and solomon: Subcentimeter lymph nodes are seen. Chest wall and lower neck: Unremarkable. Abdomen: Right renal cysts are seen. Bones: Degenerative changes of the thoracic spine. Old healed rib fractures are seen. IMPRESSION: No acute abnormality and in particular no evidence of pulmonary embolus. A few cystic changes are seen. Bronchial wall thickening is compatible with infectious/inflammatory airways process. No evidence of pneumonia. ACT 112: Negative or not required by law. Electronically signed by: Omi Mock M.D. 09/25/2023 6:35 AM Discharge Plan Visit Data Chief Complaint: Shortness of Breath/Dyspnea Stated Complaint: SOB ED Provider: Willis Joseph Discharge Problem: COPD (chronic obstructive pulmonary disease), Hypoxia, Chest tightness Patient Disposition: Admitted As Inpatient Discharge Instructions Interventions: ED Discharge Assessment Last Done: 09/25/23 02:06 Discharge Problem: COPD (chronic obstructive pulmonary disease) Qualifiers: COPD type: COPD with acute exacerbation Qualified Code(s): J44.1 - Chronic obstructive pulmonary disease with (acute) exacerbation
[2023-09-24] MEDS: methylPREDNISolone 125 MG/2 ML VIAL IV STA (23:29)
[2023-09-24] MEDS: ALBUT/IPRATROP 3MG/0.5MG NEB 3 ML VIAL NEB STA (23:29)
[2023-09-24] MEDS: guaiFENesin 600 MG TABCR PO STA (23:29)
[2023-09-24 23:40] LABS: Adenovirus PCR Not Detected (NotDetected); Bordetella parapertussis PCR Not Detected (NotDetected); Bordetella pertussis PCR Not Detected (NotDetected); Chlamydia pneumoniae PCR Not Detected (NotDetected); Coronavirus 229E PCR Not Detected (NotDetected); Coronavirus CoV-2 (COVID19)PCR Not Detected (NotDetected); Coronavirus HKU1 PCR Not Detected (NotDetected); Coronavirus NL63 PCR Not Detected (NotDetected); Coronavirus OC43PCR Not Detected (NotDetected); Human Metapneumovirus PCR Not Detected (NotDetected); Influenza A PCR Not Detected (NotDetected); Influenza B PCR Not Detected (NotDetected); Mycoplasma pneumoniae PCR Not Detected (NotDetected); Parainfluenza Virus 1 PCR Not Detected (NotDetected); Parainfluenza Virus 2 PCR Not Detected (NotDetected); Parainfluenza Virus 3 PCR Not Detected (NotDetected); Parainfluenza Virus 4 PCR Not Detected (NotDetected); Respiratory Syncytial VirusPCR Not Detected (NotDetected); Rhinovirus/Enterovirus PCR Not Detected (NotDetected)
[2023-09-25] MEDS: OPTIRAY 320 125ml IV ONE (00:11)
[2023-09-25] MEDS: SODIUM CHLORIDE 0.9% 500 ML IV ONE (00:36)
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
[2023-09-25] MEDS ORDERED: PROMETHAZINE HCL 12.5 MG in SODIUM CHLORIDE 0.9% 50 ML IV PRN (01:17)
[2023-09-25] MEDS ORDERED: oxyCODONE HCL IR 5 MG TAB (IMMEDIATE RELEASE) PO PRN (01:17)
[2023-09-25] MEDS ORDERED: ACETAMINOPHEN 325 MG TAB PO PRN (01:17)
[2023-09-25] MEDS ORDERED: POLYETHYLENE (MIRALAX) 17 GM PACK PO PRN (02:07)
[2023-09-25 04:43] LABS: Basophils # (auto) 0.02 K/uL (0.00-0.20); Basophils % (auto) 0.2 %; Hematocrit (blood only) 51.3 % (42.0-52.0); Hemoglobin 16.9 g/dl (14.0-18.0); Immature Granulocytes # (auto) 0.03 K/uL (0.01-0.20); Immature Granulocytes % (auto) 0.4 %; Lymphocytes # (auto) 0.73 K/uL (1.20-3.40); Lymphocytes % (auto) 9.1 %; Mean Corpuscular Hemoglobin 27.9 pg (25.0-34.0); Mean Corpuscular Hgb Conc 32.9 g/dL (32.0-36.0); Mean Corpuscular Volume 84.7 fL (80.0-100.0); Mean Platelet Volume 8.8 fL (9.4-12.4); Monocytes # (auto) 0.12 K/uL (0.11-0.59); Monocytes % (auto) 1.5 %; Neutrophils # (auto) 7.13 K/uL (1.40-6.50); Neutrophils % (auto) 88.8 %; Platelet Count 297 K/uL (130-400); RDW Coefficient of Variation 14.7 % (11.5-14.5); RDW Standard Deviation 44.9 fL (36.4-46.3); Red Blood Count 6.06 M/uL (4.70-6.10); White Blood Count 8.03 K/ul (4.8-10.8)
[2023-09-25 04:54] LABS: BUN Creatinine Ratio 16.9 (10-20); Calcium 9.1 mg/dl (8.6-10.3); Creatinine Clr Calc Pharmacy 174.4 ml/min; Est GFR (African American) 124.9 ml/min; Est GFR (Non-African American) 107.7 ml/min; Potassium 4.4 mmol/L (3.5-5.1)
[2023-09-25] MEDS: LEVOTHYROXINE SODIUM 137 MCG TABLET PO SCH (06:30)
--- NOTE | 2023-09-25 06:37 | CT Scan Report ---
CT angio chest PE protocol CLINICAL HISTORY: chest tightness, copd, r/o PE TECHNIQUE: Multidetector row helical CT of the chest was performed with angiographic protocol. Rain l and sagittal reformations were obtained. Coronal and sagittal MIPS were obtained from the axial carmella a set and were submitted for review. Automated dose lowering techniques and/or adjustment according to patient size were utilized for this exam. CT DOSE: 902.94 mGy.cm Comparison: Comparison is made to CT chest 05/31/2023 FINDINGS: Lungs and pleura: Atelectasis is seen. Bronchial wall thickening is noted. There are a few pulmonary cysts. Heart and pericardium: Heart size is normal. No pericardial effusion. Vessels: No evidence of pulmonary embolism. Mild atherosclerotic disease is seen. Mediastinum and solomon: Subcentimeter lymph nodes are seen. Chest wall and lower neck: Unremarkable. Abdomen: Right renal cysts are seen. Bones: Degenerative changes of the thoracic spine. Old healed rib fractures are seen. IMPRESSION: No acute abnormality and in particular no evidence of pulmonary embolus. A few cystic changes are see n. Bronchial wall thickening is compatible with infectious/inflammatory airways process. No evidence of pneumonia. ACT 112: Negative or not required by law. Electronically signed by: Omi Mock M.D. 09/25/2023 6:35 AM
--- NOTE | 2023-09-25 07:56 | XRay Report ---
XR chest 1V portable CLINICAL HISTORY: Chest pain, nonspecific TECHNIQUE: Single frontal radiograph of the chest was obtained. Comparison: Comparison is made to chest radiograph 06/05/2023 FINDINGS: No lines and tubes are seen. The cardiomediastinal silhouette is normal. The lungs are clear. Small r ight and trace left pleural effusions. IMPRESSION: Small right and trace left pleural effusions, stable to minimally increased from prior exam. ACT 112: Negative or not required by law. Electronically signed by: Omi Mock M.D. 09/25/2023 7:55 AM
--- NOTE | 2023-09-25 08:04 | Electrocardiogram Report ---
Test Reason : Blood Pressure : / mmHG Vent. Rate : 064 BPM Atrial Rate : 064 BPM P-R Int : 174 ms QRS Dur : 084 ms QT Int : 438 ms P-R-T Axes : 049 067 041 degrees QTc Int : 451 ms Normal sinus rhythm Normal ECG When compared with ECG of 29-MAY-2023 02:39, No significant change was found Confirmed by Aamir Crespo ([id number]) on 09/25/2023 8:03:55 AM Referred By: REFERRED SELF Confirmed By:Lance Crespo
[2023-09-25] MEDS: busPIRone 5 MG TAB PO SCH (08:22)
[2023-09-25] MEDS: carvediloL 12.5 MG TAB PO SCH (08:22)
[2023-09-25] MEDS: predniSONE 20 MG TAB PO SCH (08:22)
[2023-09-25] MEDS: lisinopril 40 MG TAB PO SCH (08:23)
[2023-09-25] MEDS: amLODIPine BESYLATE 5 MG TAB PO SCH (08:23)
[2023-09-25] MEDS: BENZTROPINE MESYLATE 1 MG TAB PO SCH (08:23)
[2023-09-25] MEDS: ENOXAPARIN INJ 40 MG/0.4 ML SYR SQ SCH (08:23)
[2023-09-25] MEDS: hydrOXYzine HCl 25 MG TAB PO SCH (08:23)
[2023-09-25] MEDS: MONTELUKAST SODIUM 10 MG TABLET PO SCH (08:23)
[2023-09-25] MEDS: ALBUT/IPRATROP 3MG/0.5MG NEB 3 ML VIAL NEB SCH (10:44)
--- NOTE | 2023-09-25 11:49 | Communication Note ---
Date of Service: September 25, 2023 63-year-old male with PMH of HFpEF, HOCM, COPD, nocturnal hypoxemia on home oxygen at night, chronic hyponatremia, hypothyroidism, prediabetes, morbid obesi ty, schizoaffective disorder, mood disorder, past tobacco/alcohol abuse presented to the ED 09/23 with complaint of progressive shortness of breath for few days [employer] with usual cough symptoms productive of clear sputum, no chest pain or fluid retention. He is being managed for the following: COPD exacerbation Hypoxia Patient was having progressive shortness of breath for few days [employer]BR[employer]GE [employer], noted to be saturating in 80s at ED. Patient not noted to be in respiratory distress per ED and H&P exam, hence no respiratory failure at presentation. Admitting WBC minimally elevated, likely secondary to acute distress. Admitting VBG fairly WNL. Respiratory viral panel negative. Patient utilizes 2 L oxygen at night, needing 4 L oxygen currently. Received solu-Medrol at presentation. Continue nebs RTC, steroid course patient reports feeling better, wean down oxygen as tolerated. Encouraged flutter valve and incentive spirometer. Monitor off antibiotics. Other chronic medical conditions: Continue with/resume home meds as and when able. diastolic dysfunction (65 to 70%, TTE 2023), patient euvolemic hx HOCM nocturnal hypoxemia on home O2 at night, sleep disordered breathing likely MARTA chronic hyponatremia, on fluid restriction as per records hypothyroidism, euthyroid as of last months TSH prediabetes, hemoglobin A1c of 6 last May 2023 schizoaffective disorder/mood disorder, stable past tobacco/alcohol abuse DVT prophylaxis with Lovenox subcu Full code Text document was generated using [employer] voice recognition software. It may contain grammatical or spelling errors. Kindly contact undersigned for clarification of any documentation item in question.
[2023-09-25] MEDS: LOVASTATIN 20 MG TAB PO SCH (17:30)
[2023-09-25] MEDS: SERTRALINE HCL 100 MG TABLET PO SCH (21:15)
--- OUTSIDE RECORDS SUMMARY | 2023-09-26 04:36 | External Medical Summary | Summary of Care ---
Author Name Unknown Organization [facility] Address [address] [place] [address] Phone [phone] Care Team Providers Care Mining Engineering Technologist Name Role Phone Rodo Pineda Primary Care Provider Reason for Visit * Reason Comments Medical Nutrition Therapy Follow Up Encounter Details Date Type Department Care Team (Late st Contact Info) Description 09/02/2023 2:30 PM EDT Telemedicine Nutrition, [facility] [address] [place] [address] Barbara Mukherjee RDN [address] [place] [address] Prediabetes*; Body mass index (BMI) of 50.0 to 59.9 in adult ([facility]); Dyslipidemia, goal LDL below 70; HTN, goal below 130/80; Schizoaffective disorder, chronic condition ([facility]) Allergies Active Allergy Reactions Criticality Noted Date Comments Bee Stings Hives Medium 03/08/2009 Niacin Itching High 03/26/2011 Penicillin V Potassium 08/26/2007 Pt told as a child he was allergic to it documented as of this encounter (statuses as of 09/02/2023) Medications Medication Sig Dispensed Refills Start Date End Date Status BENZTROPINE MESYLATE 1 MG PO TABSIndications:S chizoaffective disorder, chronic condition ([facility]) 1 tab daily 30 5 09/02/2007 Active [...] continuous . 1 Each 0 10/17/2021 Active metFORMIN HCl ER 500 MG Oral Tablet Extended Release 24 Hour (Glucophage XR) Take 2 Tablets by mouth at bedtime. 180 Tablet 3 11/19/2022 Active Trelegy Ellipta 100-62.5-25 MCG/ACT Aerosol Powder Breath Activated (Fluticasone-Umec lidinium-Vilanter ol) Inhale 1 Puff by mouth in the morning. 180 Blister Dosing Unit 2 05/16/2023 Active Montelukast Sodium 10 MG Oral Tablet (Singulair)Indica tions:COPD, severity to be determined (HCC) TAKE 1 TABLET DAILY 90 Tablet 2 05/19/2023 Active Lisinopril 40 MG Oral TabletIndications :HTN, goal below 130/80 TAKE 1 TABLET DAILY 90 Tablet 2 05/19/2023 Active Furosemide 20 MG Oral Tablet (Lasix) take 1 tablet by mouth Daily 30 Tablet 0 06/15/2023 Active Additional Information Patient not taking.Reported on 08/06/2023 Trelegy Ellipta 100-62.5-25 MCG/ACT Aerosol Powder Breath Activated (Fluticasone-Umec lidinium-Vilanter ol) inhale 1 puff by mouth daily daily 60 Each 0 06/15/2023 Active amLODIPine Besylate 5 MG Oral Tablet (Norvasc) TAKE 1 TABLET DAILY 90 Tablet 3 06/24/2023 Active Lovastatin 40 MG Oral TabletIndications :Dyslipidemia, goal LDL below 70 TAKE 1 TABLET DAILY 90 Tablet 3 06/24/2023 Active Levothyroxine Sodium 137 MCG Oral Tablet Take 1 Tablet by mouth daily. 0 07/24/2023 Active Carvedilol 12.5 MG Oral Tablet (Coreg)Indication s:HOCM (hypertrophic obstructive cardiomyopathy) (HCC) TAKE 1 TABLET TWICE A DAY 180 Tablet 1 08/15/2023 Active Albuterol Sulfate HFA 108 (90 Base) MCG/ACT Inhalation Aerosol Solution Inhale 2 Puffs by mouth every 6 hours as needed for Dyspnea or Wheezing. 18 g 2 08/27/2023 11/25/2023 Active documented as of this encounter (statuses as of 09/02/2023) Active Problems Problem Noted Date Diagnosed Date Morbid obesity due to excess calories 08/06/2023 Body mass index (BMI) of 45.0 to [...] as of this encounter (statuses as of 09/02/2023) Resolved Problems Problem Noted Date Diagnosed Date [...] as of this encounter (statuses as of 09/02/2023) Immunizations Name Administration Dates Next Due COVID-19 mRNA, LNP-s, No Pre serve, 2-Dose Series (Moderna) 07/25/2020,06/27/2020 HEP A - Hepatitis A (Adult > 18 yrs) 09/09/2002, 04/11/2002 Hepatitis B, 20+ yrs 09/09/2002,05/12/2002,04/11 PPD 09/08/2006 Pneumococcal Conjugate Vacci ne, 20-valent ([id number]) 11/14/2021 Pneumococcal Polysaccharide PPV23 (Pneumovax) 04/17/2003 Seasonal [...] on file documented as of this encounter Patient Instructions * Patient Instructions* Barbara Mukherjee RDN - 09/02/2023 2:58 PM EDT Patient will increase activity level to 5 days a week of walking or other light activity. Patient will continue with present meal regimen. Be sure to include a low-carb vegetable with at least 1 meal daily. documented in this encounter Progress Notes * Barbara Mukherjee RDN - 09/02/2023 2:32 PM EDT NUTRITION FOLLOW-UP NOTE - OUTPATIENT [facility] Name: Will Bearden Location: [facility] Date: 09/02/2023 Time: 2:32 PM Patient was identified by name and date. After connecting to the patient via telephone, the patient was identified by name and date of . Patient was then informed that this was a telephone call only visit. The patient agreed to participate. Visit Disposition: Routine follow-up Total call duration was 29 minutes. Reason for Nutrition Follow-up: Prediabetes NUTRITION ASSESSMENT: Client History Patient is a 63 year old male being seen for above issue. States he had a recent hospital stay at [facility] with RSV and pneumonia. States following this he had a short rehab stay at [facility]. Patient is now at home. Support System: sister, cousin, friends Barriers to Learning: mental health-schizophrenia. States he doesn't function well in public places. Special Education Needs: None Physical Activity: walking around in driveway Food/Nutrition-Related History Describes typical diet history/24 hr recall Breakfast: 5-7 AM 1/2-1 full banana Second breakfast: 8-9 AM 1 full egg or egg whites, oatmeal with flax seed or Cheerios with whole milk Snacks: 10:30 AM Scottish muffin or bite of kielbasa Lunch: biggest meal-pork chop or fish or chicken and corn, vegetables or PB and low-salt crackers Snacks: sometimes handful of Chex mix or handful of Ritz crackers or goldfish crackers Dinner: light 5-6:30 PM meat and vegetable or 1 slice of pizza Snacks: sometimes if hungry Cheerios with whole milk Drinks: decaf tea, water, coffee Restaurant meals: rare Alcohol: decreased intake of beer from a couple days a week Tobacco Use: chews snuff daily, occasional smoking of cigars Drug Use: medical marijuana Diet Recall/Food Logs Indicate: AREAS FOR IMPROVEMENT: Inadequate fiber intake Inadequate fruit and vegetable intake POSITIVE: Portion control Uses calorie free beverages Adequate fluid intake Food and Nutrient Intake and other pertinent information: Patient reports watching his portion sizes of foods, aiming for 1/2 cup portions of high-CHO foods. He has been including some low-CHO vegetables with his meals also. States prior to hospital stay, he had been doing well with his activity goal. He notes decreasing his intake of high-sodium crackers and chips. States he has been limiting his calcium intake-1 glass of milk daily- saying he has increased calcium deposits. Medications Changes/Updates: no significant med changes related to Nutrition-Focused Physical Findings Deferred due to telephonic visit Anthropometric Measurements Current Weight: Wt Readings from Last 1 Encounters: 08/27/23 (!) 138.3 kg (305 lb) Wt Readings from Last 4 Encounters: 08/27/23 (!) 138.3 kg (305 lb) 08/06/23 (!) 142 kg (313 lb) 03/04/23 (!) 150.7 kg (332 lb 4 oz) 02/28/23 (!) 152 kg (335 lb) Weight Change: decreased by 30 pounds in the past 6 months per [facility] BMI Readings from Last 1 Encounters: 08/27/23 45.04 kg/m Biochemical Data, Medical Tests, and Procedures Latest Reference Range & Units 11/19/22 12:18 03/04/23 14:15 08/06/23 12:05 Hemoglobin A1C 4.0 - 5.6 % 6.1 (H) 6.0 (H) 5.7 (H) (H): Data is abnormally high Above levels reviewed and pt aware. Previous Nutrition Diagnosis: Overweight/obesity related to High calorie, high fat and/or high sugar selections, Inconsistent carbohydrate intake, Inadequate fiber intake, Inadequate fruit and vegetable intake as evidenced by Reported diet and/or activity recall, Body mass index is 50.25 kg/m. Progress towards goals: Patient will increase activity level by walking at least 3 times a week. Do 20 minute sessions if able or do 2- 10 minute sessions daily. Partially MET Patient will monitor serving sizes of high-CHO foods to no more than 1/2 cup portions. MET Patient will include a low-carb vegetable at least 1 serving a day most days of the week. MET CURRENT NUTRITION DIAGNOSIS Altered nutrition-related laboratory values related to prediabetes as evidenced by elevated Hgb [id number]. Overweight/obesity related to presumed previous excessive energy intake compared to estimated needsas evidenced by There is no height or weight on file to calculate BMI. NUTRITION INTERVENTION: NUTRITION EDUCATION Initial/brief nutrition education NUTRITION COUNSELING Strategies Nutrition Prescription: Diet: Consistent Carbohydrate Weight Management Daily Calorie Needs: 9323-2653 Kcals Daily Protein Needs: 75-80 Grams protein Current Goals: Patient will increase activity level to 5 days a week of walking or other light activity. Patient will continue with present meal regimen. Be sure to include a low-carb vegetable with at least 1 meal daily. Dietitian Action: Encouraged patient to continue with present meal regimen, and to also include more low-CHO vegetables in his meal regimen-briefly reviewed these with him. Discussed working on activity level-pt states he would like to increase this. Discussed benefit of activity on overall health.Patient asking about taking a dose of vinegar. Discussed that this is okay but no research is available to support use of this for glucose management or weight management. Other Education Material: list of low-CHO vegetables These materials will be mailed and/or portal messaged to the participant. Recommendations to Ordering Provider: Continue current plan of nutrition care. NUTRITION MONITORING AND EVALUATION: The following will be monitored and evaluated at the next visit: Monitor weight. Monitor goals and progress. Monitor activity regimen. Plan: Patient scheduled to return in 6 months. 30 minutes Medical Nutrition Therapy Time In: 1431 (09/02/23 1431) Time Out: 1501 (09/02/23 1738) 15 min (8-22 min) 30 min (23-37 min) 45 min (38-52 min) 60 min (53-67 min) 75 min (68-82 min) 90 min (83-97 min) 105 min (98-113 min) Barbara Mukherjee RDN NUTRITION, [facility] documented in this encounter Plan of Treatment Upcoming Encounters Date Type Department Care Team (Late st Contact Info) Description 10/15/2023 1:00 PM EDT [facility] [address] [place] [address] [place], [address] [address] [place] [address] 10/20/2023 12:00 PM EDT [facility] [address] [facility] [place] [address] Attila Hussein MD [address] [facility] [address] 10/24/2023 11:20 AM EDT Office Visit Sleep Disorders Ctr [facility] [address] [place] [phone] Celestina Pineda DO [address] [place] [address] 11/05/2023 11:20 AM EDT Office Visit Family Practice [facility] [address] [place] [address] Renae Costello CRNP [address] [place] [address] 11/05/2023 12:00 PM EDT Imaging Radiology [facility] [address] [place] [address] 12/03/2023 2:20 PM EDT Office Visit Sleep Disorders Ctr [facility] [address] [place] [phone] Alivia Mccann, DO [address] [place] [address] 03/04/2024 1:30 PM EDT Telemedicine Nutrition, [facility] [address] [place] [address] Barbara Mukherjee, ISABELN [address] [place] [address] 03/10/2024 12:20 PM EDT Office Visit Family Practice [facility] [address] [place] [address] Rodo Pineda, DO [address] [place] [address] Scheduled Procedures Name Priority Associated Diagnoses Date/Ti me COLONOSCOPY FLEXIBLE PROXIMAL DIAGNOSTIC Recall History of colon polyps Health Maintenance Due Date Last Done Comments DTaP,Tdap,and Td Vaccines (2 - Td or Tdap) 04/15/2022 04/15/2012, 04/28/2006 COVID-19 Vaccine (3 - 2022- season) 2023 07/25/2020, 06/27/2020 COLONOSCOPY-EVERY 3 YRS AGES 18-100 09/09/2023 09/08/2020, 08/29/2015, 08/29/2015, Additional history exists Depression Screening 11/20/2023 11/19/2022 GFR 08/05/2024 08/06/2023, 05/14, 03/04/2023, Additional history exists HbA1c 08/05/2024 08/06/2023, 02/10, 11/19/2022, Additional history exists TSH 08/05/2024 08/06/2023, 10/2023, 03/04/2023, Additional history exists O2 ASSESSMENT COMPLETED IN PAST YEAR FOR COPD 08/26/2024 08/27/2023 Albumin/Creatinine Ratio 05/14/2025 05/14/2022 Lipid Panel 08/05/2028 08/06/2023, 02/10, 11/14/2021, Additional history exists Hepatitis B Completed 09/09/2002, 05/2002, 04/11/2002 COLONOSCOPY-EVERY 5 YRS AGES 18-100 Discontinued 09/08/2020, 08/29/2015, 08/29/2015, Additional history exists Alpha-1 Antitrypsin Completed 07/31/2021 Pneumococcal Vaccine: Pediatrics (0 to 5 Years) and At-Risk Patients (6 to 64 Years) Completed 11/14/2021, 04/17/2003 Zoster Vaccines Completed 11/14/2021, 07/31/2021 Lung Cancer Screening Completed 07/30/2022 , 07/16/2021, 07/14/2018, Additional history exists Influenza Vaccine (FLU shot) Completed 03/04/2023, 02/21/2022, 02/19/2022, Additional history exists GARDASIL-HPV IMMUNIZATION SERIES Aged Out No longer eligible based on patient's age to complete this topic MENINGOCOCCAL (MENACTRA/MENVEO) Aged Out No longer eligible based on patient's age to complete this topic documented as of this encounter Medical Devices Implanted Type Area Banquet Line Cook Device Identifier Shelf Expiration Date Model / Serial / Lot Mesh Supramesh [id number] - [id number] Implanted:Qty: 1 on 05/27/[address] [facility] N/A: Abdomen CR BARD : DAVOL 03/12/2011 [id number] / / [id number] documented as of this encounter Visit Diagnoses [...] and were consensually agreed upon. Care Teams Mining Engineering Technologist Relationship Specialty Start Date End Date Rodo Pineda DO [address] [place] [address] PCP - General Family Medicine 12/17/17 documented as of this encounter
--- OUTSIDE RECORDS SUMMARY | 2023-09-26 04:36 | External Medical Summary | Summary of Care ---
Author Name Unknown Organization [facility] Address [address] [address] Phone [phone] Care Team Providers Care Communications Marketing Intern Name Role Phone Rodo Pineda DO Primary Care Provider Reason for Visit * Reason Onset Date Comments Oxygen Assessment 09/16/2023 NPO Encounter Details Date Type Department Care Team (Late st Contact Info) Description 09/16/2023 Telephone Pulmonary Medicine, [facility] [address] [place] [address] Attila Hussein MD [address] [place] [address] Oxygen Assessment (NPO) Allergies Active Allergy Reactions Criticality Noted Date Comments Bee Stings Hives Medium 03/08/2009 Niacin Itching High 03/26/2011 Penicillin V Potassium 08/26/2007 Pt told as a child he was allergic to it documented as of this encounter (statuses as of 09/17/2023) Medications Medication Sig Dispensed Refills Start Date [...] as of this encounter (statuses as of 09/17/2023) Active Problems Problem Noted Date Diagnosed Date [...] as of this encounter (statuses as of 09/17/2023) Resolved Problems Problem Noted Date Diagnosed Date [...] as of this encounter (statuses as of 09/17/2023) Immunizations Name Administration Dates Next Due COVID-19 mRNA, LNP-s, No Pre serve, 2-Dose Series (Moderna) 07/25/2020,06/27/2020 HEP A - Hepatitis A (Adult > 18 yrs) 09/09/2002, 04/11/2002 Hepatitis B, 20+ yrs 09/09/2002,05/12/2002,04/11 PPD 09/08/2006 Pneumococcal Conjugate Vacci ne, 20-valent ([id number]) 11/14/2021 Pneumococcal Polysaccharide PPV23 (Pneumovax) 04/17/2003 Seasonal [...] encounter Miscellaneous Notes * Telephone Encounter - Attila Hussein MD - 09/17/2023 7:38 AM EDT Positive nocturnal oximetry study 2 L nasal cannula oxygen being ordered. * Telephone Encounter - Bria Bueno LPN - 09/16/2023 9:03 AM EDT Pt's NPO results have been scanned into the chart. Please review and advise documented in this encounter Plan of Treatment Upcoming Encounters Date Type Department Care Team (Late st Contact Info) Description 10/15/2023 1:00 PM EDT PulmDiagnostic Pulmonary Function Lab, [facility] [address] [facility] [place] [address] [place], [address] [facility] [place] [address] 10/20/2023 12:00 PM EDT Office Visit Pulmonary Medicine, [facility] [address] [facility] [place] [address] Attila Hussein MD [address] [place] [address] 10/24/2023 11:20 AM EDT Office Visit Sleep Disorders Ctr [facility] [address] [facility] [place] [phone] Celestina Pineda, DO [address] [place] [address] 11/05/2023 11:20 AM EDT Office Visit Family Practice [facility] [address] [place] [address] Renae Costello CRNP [address] [place] [address] 11/05/2023 12:00 PM EDT [facility] [address] [place] [address] 12/03/2023 2:20 PM EDT Office Visit Sleep Disorders Ctr [facility] [address] [place] [phone] Alivia Mccann, DO [address] [place] [address] 03/04/2024 1:30 PM EDT Telemedicine Nutrition, [facility] [address] [place] [address] Barbara Mukherjee, RDN [address] [place] [address] 03/10/2024 12:20 PM EDT Office Visit [facility] [address] [place] [address] Rodo Pineda, DO [address] [place] [address] Scheduled Procedures Name Priority Associated Diagnoses Date/Ti me COLONOSCOPY FLEXIBLE PROXIMAL DIAGNOSTIC Recall History of colon polyps Health Maintenance Due Date Last Done Comments Cologuard 2005 Fecal Occult Blood Test 2005 Sigmoidoscopy 2005 DTaP,Tdap,and Td Vaccines (2 - Td or Tdap) 04/15/2022 04/15/2012, 04/28/2006 COVID-19 Vaccine (3 - 2023-24 season) 2023 07/25/2020, 06/27/2020 Colonoscopy 09/09/2023 09/08/2020, 08/10, 08/29/2015, Additional history exists Colorectal Cancer Screening 09/09/2023 Depression Screening 11/20/2023 11/19/2022 GFR 08/05/2024 08/06/2023, 05/14, 03/04/2023, Additional history exists HbA1c 08/05/2024 08/06/2023, 02/10, 11/19/2022, Additional history exists TSH 08/05/2024 08/06/2023, 10/2023, 03/04/2023, Additional history exists O2 ASSESSMENT COMPLETED IN PAST YEAR FOR COPD 08/26/2024 08/27/2023 Albumin/Creatinine Ratio 05/14/2025 05/14/2022 Lipid Panel 08/05/2028 08/06/2023, 02/10, 11/14/2021, Additional history exists Hepatitis B Completed 09/09/2002, 05/2002, 04/11/2002 RETIRED - COLONOSCOPY-EVERY 5 YRS AGES 18-100 Discontinued 09/08/2020, [...] this encounter Medical Devices Implanted Type Area Senior Manufacturing Engineer Device Identifier Shelf Expiration Date Model / Serial / Lot Mesh Supramesh [id number] - [id number] Implanted:Qty: 1 on 05/27/2009 at OR [facility] N/A: Abdomen CR BARD : DAVOL 03/12/2011 [id number] / / [id number] documented as of this encounter Visit Diagnoses Diagnosis Chronic respiratory failure with hypoxia (HCC)- Primary Chronic respiratory failure documented in this encounter Advance Directives Latest [...] and were consensually agreed upon. Care Teams Communications Marketing Intern Relationship Specialty Start Date End Date Rodo Pineda DO [address] [place] [address] PCP - General Family Medicine 12/17/17 documented as of this encounter
--- OUTSIDE RECORDS SUMMARY | 2023-09-26 04:36 | External Medical Summary | Summary of Care ---
Author Name Unknown Organization [facility] Address [address] [place] [address] Phone [phone] Care Team Providers Care Associate Drafter Name Role Phone Rodo Pineda Primary Care Provider Reason for Referral * Evaluate & Treat - Unlimited Visits (Within 3 days (urgent)) - Authorized Specialty Diagnoses / Procedures Referred By Contjessenia t Referred To Contact Dietitian Diagnoses Prediabetes Body mass index (BMI) of 50.0 to 59.9 in adult (HCC) Barbara Mukherjee RDN [address] [place] [address] Referral ID Status Reason Start Date Expiration Date Visits Requested Visits Authorized [id number] Authorized Specialty Services Required 09/03/[phone] Question Answer Referral Priority Within 3 days (urgent) Where should this appointment be scheduled? [facility] Comments This referral/annual renewal order is for Medical Nutrition Therapy (MNT) or Diabetes Self-Management Training (DSMT). MNT is provided by a Registered Dietitian Dope Worker. MNT is an evidence-based medical approach to treating certain chronic conditions through the use of an individually-tailored nutrition, lifestyle changes and behavior modification plan. Diabetes Self-Management Training (DSMT) is provided by a recognized [place] [employer] (ADA) consumer educator: Nurse (RN), Registered Dietitian Dope Worker (RDN), and/or Diabetes Medical Nutrition Therapy (MNT) Management (dietitian only). Diabetes educators are responsible for assessing the participant's diabetes education needs, and providing diabetes self-management training in accordance with the standards set by the ADA for DSMT. Any adjustment in diabetes therapy will be made within the guidelines of standards of practice and [facility] approved policies and procedures. I understand that the consumer educator will keep me informed. Areas of Education: Pathophysiology Nutrition Physical Activity Medications Monitoring Acute Complications Chronic Complications Psychosocial Management Promote Health/Behavior Change Participant will be offered 1:1 education training if there is a lack of classes available within 2 months. Providers can also order 1:1 training if indicated for participant for the following reasons: 1:1 Training for Insulin Initiation Participant Inappropriate for Class Setting By my electronic signature, I understand that my patient will be offered the comprehensive ADA content area above unless deemed not appropriate of I specify otherwise here: Reason for Visit * Reason Onset Date Comments Referral 09/02/2023 Encounter Details Date Type Department Care Team (Late st Contact Info) Description 09/02/2023 Telephone Tegan Muniz [address] [place] [address] Barbara Mukherjee RDN [address] [place] [address] Referral Allergies Active Allergy Reactions Criticality Noted Date Comments Bee Stings Hives Medium 03/08/2009 Niacin Itching High 03/26/2011 Penicillin V Potassium 08/26/2007 Pt told as a child he was allergic to it documented as of this encounter (statuses as of 09/03/2023) Medications Medication Sig Dispensed Refills Start Date [...] Tablet (Singulair)Indica tions:COPD, severity to be determined ([facility]) TAKE 1 TABLET DAILY 90 Tablet 2 [...] as of this encounter (statuses as of 09/03/2023) Active Problems Problem Noted Date Diagnosed Date [...] as of this encounter (statuses as of 09/03/2023) Resolved Problems Problem Noted Date Diagnosed Date [...] as of this encounter (statuses as of 09/03/2023) Immunizations Name Administration Dates Next Due COVID-19 mRNA, LNP-s, No Pre serve, 2-Dose Series (Moderna) 07/25/2020,06/27/2020 HEP A - Hepatitis A (Adult > 18 yrs) 09/09/2002, 04/11/2002 Hepatitis B, 20+ yrs 09/09/2002,05/12/2002,04/11 PPD 09/08/2006 Pneumococcal Conjugate Vacci ne, 20-valent ([id number]) 11/14/2021 Pneumococcal Polysaccharide PPV23 (Pneumovax) 04/17/2003 Seasonal [...] encounter Miscellaneous Notes * Telephone Encounter - Barbara Mukherjee RDN - 09/02/2023 5:41 PM EDT Due to new calendar year, need current Clinical Nutrition referral. Please sign pended order. Thank you. Barbara Mukherjee RDN, Clinical Dietitian II, [facility] Clinical Nutrition Services [facility] [address] [place] [address] Available via [employer] Portal documented in this encounter Plan of Treatment Upcoming Encounters Date Type Department Care Team (Late st Contact Info) Description 10/15/2023 1:00 PM EDT PulmDiagnostic Pulmonary Function Lab, [facility] [address] [facility] [place] [address] [place], [place] [address] [facility] [place] [address] 10/20/2023 12:00 PM EDT Office Visit Pulmonary Medicine, [facility] [address] [facility] [place] [address] Attila Hussein MD [address] [place] [address] 10/24/2023 11:20 AM EDT Office Visit Sleep Disorders Ctr [facility] [address] [facility] [place] [phone] Celestina Pineda, [address] [facility] [place] [address] 11/05/2023 11:20 AM EDT Office Visit [facility] [address] [place] [address] Renae Costello CRNP [address] [place] [address] 11/05/2023 12:00 PM EDT Imaging Radiology [facility] 1st Floor, [place] [address] [place] [address] 12/03/2023 2:20 PM EDT Office Visit Sleep Disorders Ctr [facility] [address] [place] [phone] Alivia Mccann, DO [address] [place] [address] 03/04/2024 1:30 PM EDT Telemedicine Nutrition, [facility] [address] [place] [address] Barbara Mukherjee, ELIECER [address] [place] [address] 03/10/2024 12:20 PM EDT Office Visit [facility] [address] [place] [address] Rodo Pineda, DO [address] [place] [address] Scheduled Procedures Name Priority Associated Diagnoses Date/Ti me COLONOSCOPY FLEXIBLE PROXIMAL DIAGNOSTIC Recall History of colon polyps Scheduled Referrals Name Type Priority Associated Diagnoses Orde r Schedule CLINICAL NUTRITION AND DIABETES EDUCATION ANNUAL RENEWAL Referral Within 3 days (urgent) Prediabetes Body mass index (BMI) of 50.0 to 59.9 in adult (HCC) Ordered: 09/03/2023 Health Maintenance Due Date Last Done Comments DTaP,Tdap,and Td Vaccines (2 - Td or Tdap) 04/15/2022 04/15/2012, 04/28/2006 COVID-19 Vaccine (3 2022-24 season) 2023 07/25/2020, 06/27/2020 COLONOSCOPY-EVERY 3 YRS [...] this encounter Medical Devices Implanted Type Area Mine Safety Engineer Device Identifier Shelf Expiration Date Model / Serial / Lot Mesh Marielena 4x8 [id number] - [id number] Implanted:Qty: 1 on 05/27/2009 at OR [facility] [place] [place] N/A: Abdomen CR BARD : DAVOL 03/12/2011 [id number] / / [id number] documented as of this encounter Visit Diagnoses Diagnosis Prediabetes- Primary Other abnormal glucose Body mass index (BMI) of 50.0 to 59.9 in adult (HCC) documented in this encounter Advance Directives Latest [...] and were consensually agreed upon. Care Teams Associate Drafter Relationship Specialty Start Date End Date Rodo Pineda DO [address] [place] [address] PCP - General Family Medicine 12/17/17 documented as of this encounter
--- OUTSIDE RECORDS SUMMARY | 2023-09-26 04:36 | External Medical Summary | Summary of Care ---
Author Name Unknown Organization [facility] [address] [facility] [address] Phone [phone] Care Team Providers Care Berry Grower Name Role Phone Rodo Pineda DO Primary Care Provider Reason for Visit * Reason Onset Date Comments Oxygen Assessment 09/16/2023 NPO Encounter Details Date Type Department Care Team (Late st Contact Info) Description 09/16/2023 Telephone Pulmonary Medicine, [facility] [address] [place] [address] Attila Hussein MD [address] [place] [address] Oxygen Assessment (NPO) Allergies Active Allergy Reactions [...] PPD 09/08/2006 Pneumococcal Conjugate Vacci ne, 20-valent ([id number]) 11/14/2021 Pneumococcal Polysaccharide PPV23 (Pneumovax) 04/17/2003 Seasonal [...] encounter Miscellaneous Notes * Telephone Encounter - Bria Bueno LPN - 09/17/2023 4:10 PM EDT Pt aware of the results. Order was sent to . * Telephone Encounter - Attila Hussein MD [...] 1:00 PM EDT PulmDiagnostic Pulmonary Function Lab, [facility] [address] [facility] [place] [address] [address], [address] [place] [address] 10/20/2023 12:00 PM EDT Office Visit Pulmonary Medicine, [facility] [address] [place] [address] Attila Hussein MD [address] [facility] [place] [address] 10/24/2023 11:20 AM EDT Office Visit Sleep Disorders Ctr [facility] [address] [place], [place] [phone] Celestina Pineda, DO [address] [place] [address] 11/05/2023 11:20 AM EDT Office Visit [facility] [address] [place] [address] Renae Costello, LOAN INSPECTOR [address] [place] [address] 11/05/2023 12:00 PM EDT Imaging Radiology [facility] 1st [facility] [place] [address] [place] [address] 12/03/2023 2:20 PM EDT Office Visit Sleep Disorders Ctr [facility] [address] [place] [phone] Alivia Mccann, DO [address] [place] [address] 03/04/2024 1:30 PM EDT Telemedicine [facility], [facility] [address] [place] [address] Barbara Mukherjee, ISABELN [address] [place] [address] 03/10/2024 12:20 PM EDT Office Visit [facility] [address] [place] [address] Rodo Pineda, DO [address] [place] [address] Scheduled Procedures Name Priority Associated Diagnoses Date/Ti me COLONOSCOPY FLEXIBLE PROXIMAL DIAGNOSTIC Recall History of colon polyps Health Maintenance Due Date Last Done Comments Cologuard 2005 Fecal Occult Blood Test 2005 Sigmoidoscopy 2005 DTaP,Tdap,and Td Vaccines (2 - Td or Tdap) 04/15/2022 04/15/2012, 04/28/2006 COVID-19 Vaccine (3 - 2022- season) 2023 07/25/2020, 06/27/2020 Colonoscopy 09/09/2023 09/08/2020, [...] this encounter Medical Devices Implanted Type Area Aqua Ammonia Operator Device Identifier Shelf Expiration Date Model / Serial / Lot Mesh Marielena 4x8 [id number] - [id number] Implanted:Qty: 1 on 05/27/2009 [place] [facility] [place]A: Abdomen CR BARD : DAVOL 03/12/2011 [id number] / / [id number] documented as of this encounter Visit Diagnoses [...] and were consensually agreed upon. Care Teams Berry Grower Relationship Specialty Start Date End Date Rodo Pineda DO [address] [place] [address] PCP - General Family Medicine 12/17/17 documented as of this encounter
--- OUTSIDE RECORDS SUMMARY | 2023-09-26 04:36 | External Medical Summary | Summary of Care ---
Author Name Unknown Organization [facility] Address [address] [facility] [address] Phone [phone] Care Team Providers Care Chart Writer Name Role Phone Rodo Pineda DO Primary Care Provider Reason for Visit * Reason Onset Date Comments Oxygen Assessment 09/16/2023 NPO Encounter Details Date Type Department Care Team (Late st Contact Info) Description 09/16/2023 Telephone Pulmonary Medicine, [facility] [address] [place] [address] Attila Hussein MD [address] [place] [address] Oxygen Assessment (NPO) Allergies Active Allergy Reactions [...] PPD 09/08/2006 Pneumococcal Conjugate Vacci ne, 20-valent ([id number]) 11/14/2021 Pneumococcal Polysaccharide PPV23 (Pneumovax) 04/17/2003 Seasonal [...] 1:00 PM EDT PulmDiagnostic Pulmonary Function Lab, [facility] [address] [facility] [place] [address] [place], [address] [facility] [place] [address] 10/20/2023 12:00 PM EDT Office Visit Pulmonary Medicine, [facility] [address] [facility] [place] [address] Attila Hussein MD [address] [place] [address] 10/24/2023 11:20 AM EDT Office Visit Sleep Disorders Ctr [facility] [address] [facility] [place] [phone] Celestina Pineda, DO [address] [place] [address] 11/05/2023 11:20 AM EDT Office Visit Family Practice [facility] [address] [place] [address] Renae Costello CRNP [address] [place] [address] 11/05/2023 12:00 PM EDT [facility] [address] [place] [address] 12/03/2023 2:20 PM EDT Office Visit Sleep Disorders Ctr [facility] [address] [place] [phone] Alivia Mccann, DO [address] [place] [address] 03/04/2024 1:30 PM EDT Telemedicine Nutrition, [facility] [address] [place] [address] Barbara Mukherjee, RDN [address] [place] [address] 03/10/2024 12:20 PM EDT Office Visit [facility] [address] [place] [address] Rodo Pineda, DO [address] [place] [address] Scheduled Procedures Name Priority Associated Diagnoses Date/Ti [...] this encounter Medical Devices Implanted Type Area Supervisor Ski Production Device Identifier Shelf Expiration Date Model / Serial / Lot Mesh Supramesh 4x8 [id number] - [id number] Implanted:Qty: 1 on 05/27/[address] [facility] [place] N/A: Abdomen CR BARD : DAVOL 03/12/2011 [id number] / / [id number] documented as of this encounter Visit Diagnoses [...] and were consensually agreed upon. Care Teams Chart Writer Relationship Specialty Start Date End Date Rodo Pineda DO [address] [place] [address] PCP - General Family Medicine 12/17/17 documented as of this encounter
--- OUTSIDE RECORDS SUMMARY | 2023-09-26 04:37 | External Medical Summary ---
Author Name Unknown Address Unknown Organization K01:[facility] [place] - [address] [place] [address] Laboratory Report Ordering Provider Test Date Status LASHA CERONAlverot 08/06/2023 12:05:52 Final Observation Date Value Abnormality Reference (Units ) Status HbA1C 08/06/2023 12:05:52 5.7 Above high normal 4. 0-5.6 (%) Final The use of HbA1c to monitor glycemic status is based on normal hemoglobin and HbA composition. This test should not be used in patients with abnormal hemoglobin that affects the half life of the red blood cell or the in vivo glycation rates. Glucose, estimated average 08/06/2023 12:05:52 117 <126 (mg/dL) Final Performing Location [facility] - [address] [place] [id number]
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
--- OUTSIDE RECORDS SUMMARY | 2023-09-26 04:37 | External Medical Summary ---
Author Name Unknown Address Unknown Organization [id number]:[facility]AT[facility] - [address] [facility] [place] [address] Laboratory Report Ordering Provider Test Date Status LASHA CEROND 08/06/2023 12:05:52 Final Observation Date Value Abnormality Reference (Units ) Status Triglyceride 08/06/2023 12:05:52 137 <=174 ( mg/dL) Final Triglyceride Reference Range s (mg/dL):
<150 Acceptable
150-174 Borderline high
175-499 High
>=500 Very high Cholesterol 08/06/2023 12:05:52 145 <200 (mg /dL) Final Total Cholesterol Reference Ranges (mg/dL):
<200 Desirable
200-239 Borderline high
>=240 High HDL 08/06/2023 12:05:52 40 >39 (mg/dL ) Final HDL Cholesterol Reference Ra nges (mg/dL):
>=60 High (Desirable)
<50 Low (Undesirable) For Females
<40 Low (Undesirable) For Males NON-HDL CHOLESTEROL 08/06/2023 12:05:52 105 <=159 (mg/dL) Final Non-HDL Cholesterol Referenc e Range (mg/dL):
<100 Target level for high risk ASCVD patient
<130 Optimal for general population
130-159 Near optimal for general population
160-189 Borderline High
190-219 High
>=220 Very High LDL, (calculated) 08/06/2023 12:05:52 78 <= 129 (mg/dL) Final LDL Cholesterol Reference Ra nges (mg/dL):
<70 Target level for high risk ASCVD patient
<100 Optimal for general population
100-129 Near optimal for general population
130-159 Borderline high
160-189 High
>=190 Very high Performing Location [facility] - [address] [facility] [address]
--- OUTSIDE RECORDS SUMMARY | 2023-09-26 04:37 | External Medical Summary ---
Author Name Unknown Address Unknown Organization [id number]:[facility] - [address] [place] [address] Laboratory Report Ordering Provider Test Date Status LEOLA CERON 08/06/2023 12:05:52 Final Observation Date Value Abnormality Reference (Units ) Status BUN 08/06/2023 12:05:52 8 6-20 (mg/dL) Final Creatinine 08/06/2023 12:05:52 0.8 0.6-1.2 (mg/dL) Final Glomerular filtration rate/1.73 sq M.predicted [Volume Rate/Area] in Serum, Plasma or Blood by Creatinine-based formula (CKD-EPI) 08/06/2023 12:05:52 >90 >=60 (mL/min) Final eGFR is calculated based on the CKD-EPI 2020 equation Sodium 08/06/2023 12:05:52 137 135-146 (m mol/L) Final Potassium 08/06/2023 12:05:52 4.2 3.5-5.1 (m mol/L) Final Cl 08/06/2023 12:05:52 98 98-107 (mm ol/L) Final CO2 08/06/2023 12:05:52 28 22-32 (mmo l/L) Final Anion gap 08/06/2023 12:05:52 11 7-15 (mmol /L) Final Glucose 08/06/2023 12:05:52 106 70-120 (mg /dL) Final Calcium 08/06/2023 12:05:52 9.8 8.4-10.2 ( mg/dL) Final [facility] [address] [place] [address]
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
--- OUTSIDE RECORDS SUMMARY | 2023-09-26 04:37 | External Medical Summary ---
Author Name Unknown Address Unknown Organization K01:[facility] [address] [place] [address] Laboratory Report Ordering Provider Test Date Status OSMANYLEOLA 08/06/2023 12:05:52 Final Observation Date Value Abnormality Reference (Units ) Status PSA 08/06/2023 12:05:52 1.47 <4.10 (ng/ mL) Final Performing Location [facility] - [address] [place] [address]
--- OUTSIDE RECORDS SUMMARY | 2023-09-26 04:37 | External Medical Summary ---
Author Name Unknown Address Unknown Organization K01[place] [place] [address] [place] [address] Laboratory Report Ordering Provider Test Date Status LASHA CERONAlverto 08/06/2023 12:05:52 Final Observation Date Value Abnormality Reference (Units ) Status TSH 08/06/2023 12:05:52 1.14 0.27-4.20 (uIU/mL) Final Performing Location [facility] - [address] [place] [id number]
--- OUTSIDE RECORDS SUMMARY | 2023-09-26 04:37 | External Medical Summary ---
Author Name Unknown Address Unknown Organization [id number]:[facility]ORY [facility] [place] [address] [facility] [place] [address] Laboratory Report Ordering Provider Test Date Status LEOLA CERON 08/06/2023 12:05:52 Final Observation Date Value Abnormality Reference (Units ) Status WBC, Total 08/06/2023 12:05:52 8.50 4.00-10.8 0 (K/uL) Final RBC 08/06/2023 12:05:52 5.35 4.50-5.25 (M/uL) Final Hemoglobin 08/06/2023 12:05:52 15.6 14.0-16.8 (g/dL) Final Anemia reflex testing trigge rs on a HGB < 12.0 for Females and HGB < 13.0 for Males in accordance with the WHO Anemia Guidelines
Anemia reflex testing triggers on a HGB < 12.0 for Females and HGB < 13.0 for Males in accordance with the WHO Anemia Guidelines HCT 08/06/2023 12:05:52 48.3 40.0-48.4 (%) Final MCV 08/06/2023 12:05:52 90.3 82.0-99.5 (fL) Final MCH 08/06/2023 12:05:52 29.2 27.0-34.0 (pg) Final MCHC 08/06/2023 12:05:52 32.3 32.0-36.0 (g/dL) Final RDW 08/06/2023 12:05:52 15.6 11.5-15.5 (%) Final Platelets 08/06/2023 12:05:52 358 140-400 (K /uL) Final MPV 08/06/2023 12:05:52 9.1 6.6-11.1 ( fL) Final Nucleated erythrocytes/100 leukocytes [Ratio] in Blood by Automated count 08/06/2023 12:05:52 0 <=0 (/100 WBCs) Fi nal Performing Location LAB[facility]ATORY [facility] [place] - [address] [facility] [address]
--- OUTSIDE RECORDS SUMMARY | 2023-09-26 04:37 | External Medical Summary | Summary of Care ---
Author Name Unknown Organization [facility] Address [address] [place] [address] Phone [phone] Care Team Providers Care Pit Hoist Operator Name Role Phone Elsie Pinedar Mark Primary Care Provider Reason for Visit * Reason Comments Outpatient Testing Encounter Details Date Type Department Care Team (Late st Contact Info) Description 08/06/2023 12:00 PM EDT Laboratory Laboratory, [facility] [address] [facility] [place] [phone] [facility] [address] [facility] [place] [address] Prediabetes; DYSLIPIDEMIA, GOAL LDL BELOW 70; Grade I diastolic dysfunction; HOCM (hypertrophic obstructive cardiomyopathy) ([facility]); Nocturia; Abnormal findings on diagnostic imaging of other specified body structures; Moderate persistent asthma without complication Allergies Active Allergy Reactions Criticality Noted Date [...] (Ipratropium-Albut rodri)Indications:C OPD, severity to be determined ([facility]) USE 1 INHALATION ORALLY 4 TIMES DAILY NEEDED FOR COUGH OR WHEEZING 12 g 3 04/30/2022 Active metFORMIN HCl ER 500 MG Oral Tablet Extended Release 24 Hour (Glucophage XR) Take 2 Tablets by mouth at bedtime. 180 Tablet 3 11/19/2022 Active Carvedilol 12.5 MG Oral Tablet (Coreg)Indications :HOCM (hypertrophic obstructive cardiomyopathy) ([facility]) TAKE 1 TABLET TWICE A DAY 180 Tablet 1 02/08/2023 Active Trelegy Ellipta 100-62.5-25 MCG/ACT Aerosol Powder Breath Activated (Fluticasone-Umecl idinium-Vilanterol ) Inhale 1 Puff by mouth in the morning. 180 Blister Dosing Unit 2 05/16/2023 Active Montelukast Sodium 10 MG Oral Tablet (Singulair)Indicat ions:COPD, severity to be determined ([facility]) TAKE 1 TABLET DAILY 90 Tablet 2 [...] PPD 09/08/2006 Pneumococcal Conjugate Vacci ne, 20-valent ([id number]) 11/14/2021 Pneumococcal Polysaccharide PPV23 (Pneumovax) 04/17/2003 Seasonal [...] 1:00 PM EDT Office Visit Pulmonary Medicine, [facility] [address] [place] [address] Attila Hussein MD [address] [place] [address] 09/02/2023 2:30 PM EDT Telemedicine Nutrition, [facility] [address] [place] [address] Barbara Mukherjee RDN [address] [place] [address] 10/24/2023 11:20 AM EDT Office Visit [facility] Disorders [facility]tr [facility] [address] [facility] [place] [phone] Celestina Pineda DO [address] [place] [address] 11/05/2023 11:20 AM EDT Office Visit Family [facility] [address] [place] [address] Renae Costello CRNP [address] [place] [address] 03/10/2024 12:20 PM EDT Office Visit [facility] [address] [place] [address] Rodo Pineda, [address] [place] [address] Pending Results Name Type Priority Associated Diagnoses Date /Time HEMOGLOBIN A1C Lab Routine Prediabetes 08/06/2023 12:05 PM EDT LIPID PANEL WITH DIRECT LDL IF TG IS HIGH Lab Routine DYSLIPIDEMIA, GOAL LDL BELOW 70 08/06/2023 12:05 PM EDT BASIC METABOLIC PANEL Lab Routine Grade I diastolic dysfunction HOCM (hypertrophic obstructive cardiomyopathy) (HCC) 08/06/2023 12:05 PM EDT PSA Lab Routine Nocturia 08/06/2023 12:05 PM EDT TSH WITH FREE T4 IF INDICATED Lab Routine HOCM (hypertrophic obstructive cardiomyopathy) (HCC) Abnormal findings on diagnostic imaging of other specified body structures 08/06/2023 12:05 PM EDT CBC WITH WBC DIFFERENTIAL AND ANEMIA REFLEX WORKUP Lab Routine Moderate persistent asthma without complication 08/06/2023 12:05 PM EDT ANEMIA CBC Lab Routine Moderate persistent asthma without complication 08/06/2023 12:05 PM EDT DIFFERENTIAL, AUTOMATED Lab Routine Moderate persistent asthma without complication 08/06/2023 12:05 PM EDT ANEMIA REFLEX CHEMISTRY HOLD Lab Routine Moderate persistent asthma without complication 08/06/2023 12:05 PM EDT Scheduled Procedures Name Priority Associated [...] 03/04/2024 03/04/2023, 11/09, 05/14/2022, Additional history exists GFR 06/11/2024 06/11/2023, 02/10, 11/19/2022, Additional history exists TSH 06/17/2024 06/17/2023, 02/10, 01/07/2023, Additional history exists O2 ASSESSMENT COMPLETED IN [...] 07/31/2021 LUNG CANCER SCREENING - USE SMARTSET [id number] Completed 07/30/2022, 07/16/2021, 07/14/2018, Additional history exists Influenza Vaccine (FLU shot) Completed 03/04/2023, 02/21/2022, 02/19/2022, Additional history exists GARDASIL-HPV IMMUNIZATION SERIES Aged Out No longer eligible based on patient's age to complete this topic MENINGOCOCCAL (MENACTRA/MENVEO) Aged Out No longer eligible based on patient's age to complete this topic documented as of this encounter Medical Devices Implanted Type Area Loss Control Technician Device Identifier Shelf Expiration Date Model / Serial / Lot Mesh Supramesh 4x8 [id number] - [id number] Implanted:Qty: 1 on 05/27/2009 at OR [facility] N/A: Abdomen CR BARD : DAVOL 03/12/2011 [id number] / / [id number] documented as of this encounter Visit Diagnoses Diagnosis Prediabetes Other abnormal glucose DYSLIPIDEMIA, GOAL LDL BELOW 70 Other and unspecified hyperlipidemia Grade I diastolic dysfunction HOCM (hypertrophic obstructive cardiomyopathy) (HCC) Hypertrophic obstructive cardiomyopathy Nocturia Abnormal findings on diagnostic imaging of other specified body structures Moderate persistent asthma without complication Unspecified asthma documented in this encounter Advance Directives Latest [...] and were consensually agreed upon. Care Teams Pit Hoist Operator Relationship Specialty Start Date End Date Rodo Pineda DO [address] [place] [address] PCP - General Family Medicine 12/17/17 documented as of this encounter
--- OUTSIDE RECORDS SUMMARY | 2023-09-26 04:37 | External Medical Summary ---
Author Name Unknown Address Unknown Organization [id number]:LABORATORY [facility] [place] - 100 [facility] [place] [address] Laboratory Report Ordering Provider Test Date Status LEOLA CERON 08/06/2023 12:05:52 Final Observation Date Value Abnormality Reference (Units ) Status SYNC LEUKOCYTES IN BLOOD BY AUTOMATED COUNT 08/06/2023 12:05:52 8.50 4.00-10.80 (K/uL) Final Segs 08/06/2023 12:05:52 72.9 40.0-75.0 (%) Final Lymphs % 08/06/2023 12:05:52 17.8 Below low normal 18.0-42.0 (%) Final Monos 08/06/2023 12:05:52 6.4 1.0-11.0 (%) Final Eosinophils 08/06/2023 12:05:52 1.3 0.0-6.0 (%) Final Basos 08/06/2023 12:05:52 0.5 0.0-2.0 (%) Final Immature Granulocyte, Percent 08/06/2023 12:05:52 1.1 0.0-2.0 (%) Final Absolute Segs 08/06/2023 12:05:52 6.21 1.80-7.70 (K/uL) Final Lymphs, absolute 08/06/2023 12:05:52 1.51 1.00-4.80 (K/ul) Final Monos, Abs 08/06/2023 12:05:52 0.54 0.00-1.10 (K/uL) Final Eos, Abs 08/06/2023 12:05:52 0.11 0.00-0.70 (K/uL) Final Basos, Abs 08/06/2023 12:05:52 0.04 0.00-0.20 (K/uL) Final Immature Granulocytes, Number 08/06/2023 12:05:52 0.09 0.00-0.20 (K/uL) Final Performing Location LABORATORY [facility] [place] - [facility] [place] [address]
--- OUTSIDE RECORDS SUMMARY | 2023-09-26 04:37 | External Medical Summary | Summary of Care ---
Author Name Unknown Organization [facility] Address [address] [facility] [address] Phone [phone] Care Team Providers Care Sports Centre Manager Name Role Phone Rodo Pineda Primary Care Provider Reason for Visit * Reason Onset Date Comments Test Results 08/12/2023 Encounter Details Date Type Department Care Team (Late st Contact Info) Description 08/12/2023 Telephone Family Practice [facility] [address] [place] [address] Renae Costello CRNP [address] [place] [phone] Test Results Allergies Active Allergy Reactions Criticality Noted Date Comments Bee Stings Hives Medium 03/08/2009 Niacin Itching High 03/26/2011 Penicillin V Potassium 08/26/2007 Pt told as a child he was allergic to it documented as of this encounter (statuses as of 08/12/2023) Medications Medication Sig Dispensed Refills Start Date [...] (Ipratropium-Albut rodri)Indications:C OPD, severity to be determined ([facility]) USE 1 INHALATION ORALLY 4 TIMES DAILY NEEDED FOR COUGH OR WHEEZING 12 g 3 04/30/2022 Active metFORMIN HCl ER 500 MG Oral Tablet Extended Release 24 Hour (Glucophage XR) Take 2 Tablets by mouth at bedtime. 180 Tablet 3 11/19/2022 Active Carvedilol 12.5 MG Oral Tablet (Coreg)Indications :HOCM (hypertrophic obstructive cardiomyopathy) ([facility]) TAKE 1 TABLET TWICE A DAY 180 Tablet 1 02/08/2023 Active Trelegy Ellipta 100-62.5-25 MCG/ACT Aerosol Powder Breath Activated (Fluticasone-Umecl idinium-Vilanterol ) Inhale 1 Puff by mouth in the morning. 180 Blister Dosing Unit 2 05/16/2023 Active Montelukast Sodium 10 MG Oral Tablet (Singulair)Indicat ions:COPD, severity to be determined ([facility]) TAKE 1 TABLET DAILY 90 Tablet 2 [...] as of this encounter (statuses as of 08/12/2023) Active Problems Problem Noted Date Diagnosed Date [...] as of this encounter (statuses as of 08/12/2023) Resolved Problems Problem Noted Date Diagnosed Date [...] as of this encounter (statuses as of 08/12/2023) Immunizations Name Administration Dates Next Due COVID-19 mRNA, LNP-s, No Pre serve, 2-Dose Series (Moderna) 07/25/2020,06/27/2020 HEP A - Hepatitis A (Adult > 18 yrs) 09/09/2002, 04/11/2002 Hepatitis B, 20+ yrs 09/09/2002,05/12/2002,04/11 PPD 09/08/2006 Pneumococcal Conjugate Vacci ne, 20-valent ([id number]) 11/14/2021 Pneumococcal Polysaccharide PPV23 (Pneumovax) 04/17/2003 Seasonal [...] Telephone Encounter - Venita Fallon LPN - 08/12/2023 4:39 PM EDT Pt aware. * Telephone Encounter - Renae Costello CRNP - 08/12/2023 11:25 AM EDT Please notify patient: Blood count normal- no evidence of anemia Diabetes is well controlled Thyroid normal Liver and kidney functions normal Cholesterol looks good. Psa normal No change in meds Watson.Pawan, MSN, [facility] Medicine documented in this encounter Plan of Treatment Upcoming Encounters Date Type Department Care Team (Late st Contact Info) Description 08/27/2023 1:00 PM EDT Office Visit Pulmonary Medicine, [facility] [address] [facility] [place] [address] Attila Hussein MD [address] [place] [address] 09/02/2023 2:30 PM EDT Telemedicine Nutrition, [facility] [address] [place] [address] Barbara Mukherjee RDN 132 [facility] [place] [address] 10/24/2023 11:20 AM EDT Office Visit Sleep Disorders Ctr [facility] [address] [place], [place] [phone] Celestina Pineda, DO [address] [place] [address] 11/05/2023 11:20 AM EDT Office Visit [facility] [address] [place] [address] Renae Costello CRNP [address] [place] [address] 03/10/2024 12:20 PM EDT Office Visit [facility] [address] [place] [address] Rodo Pineda, DO [address] [place] [address] Scheduled Procedures Name Priority Associated Diagnoses Date/Ti [...] 08/05/2024 08/06/2023, 02/10, 11/19/2022, Additional history exists O2 ASSESSMENT COMPLETED IN PAST YEAR FOR COPD 08/05/2024 08/06/2023 TSH 08/05/2024 08/06/2023, 02/0 10/2023, 03/04/2023, Additional history exists Albumin/Creatinine Ratio 05/14/2025 05/14/2022 Lipid Panel 08/05/2028 08/06/2023, 02/10, 11/14/2021, Additional history exists Hepatitis B Completed 09/09/2002, 05/2002, 04/11/2002 COLONOSCOPY-EVERY 5 YRS AGES 18-100 Discontinued 09/08/2020, 08/29/2015, 08/29/2015, Additional history exists Alpha-1 Antitrypsin Completed 07/31/2021 Pneumococcal Vaccine: Pediatrics (0 to 5 Years) and At-Risk Patients (6 to 64 Years) Completed 11/14/2021, 04/17/2003 Zoster Vaccines Completed 11/14/2021, 07/31/2021 LUNG CANCER SCREENING - USE SMARTSET 16445 Completed 07/30/2022, 07/16/2021, 07/14/2018, Additional history exists Influenza Vaccine (FLU shot) Completed 03/04/2023, 02/21/2022, 02/19/2022, Additional history exists GARDASIL-HPV IMMUNIZATION SERIES Aged Out No longer eligible based on patient's age to complete this topic MENINGOCOCCAL (MENACTRA/MENVEO) Aged Out No longer eligible based on patient's age to complete this topic documented as of this encounter Medical Devices Implanted Type Area Wheel Borer Device Identifier Shelf Expiration Date Model / Serial / Lot Mesh Supramesh 4x8 [id number] - [id number] Implanted:Qty: 1 on 05/27/2009 at OR [facility] [place] N/A: Abdomen CR BARD : DAVOL 03/12/2011 [id number] / / [id number] documented as of this encounter Advance Directives [...] and were consensually agreed upon. Care Teams Sports Centre Manager Relationship Specialty Start Date End Date Rodo Pineda DO [address] [place] [address] PCP - General Family Medicine 12/17/17 documented as of this encounter
--- OUTSIDE RECORDS SUMMARY | 2023-09-26 04:37 | External Medical Summary | Summary of Care ---
Author Name Unknown Organization [facility] Address [address] [facility] [address] Phone [phone] Care Team Providers Care Computer Tech Name Role Phone Tyrell Pineda DO Primary Care Provider Reason for Visit * Reason Comments eRx-Medication Refill Encounter Details Date Type Department Care Team (Late st Contact Info) Description 08/15/2023 Refill Family Practice [facility] [address] [place] [address] Tyrell Pineda DO [address] [place] [address] HOCM (hypertrophic obstructive cardiomyopathy) ([facility]) Allergies Active Allergy Reactions Criticality Noted Date Comments Bee Stings Hives Medium 03/08/2009 Niacin Itching High 03/26/2011 Penicillin V Potassium 08/26/2007 Pt told as a child he was allergic to it documented as of this encounter (statuses as of 08/15/2023) Medications Medication Sig Dispensed Refills Start Date End Date Status BENZTROPINE MESYLATE 1 MG PO TABSIndications: Schizoaffective disorder, chronic condition ([facility]) 1 tab daily 30 5 09/02/2007 Active LOXAPINE SUCCINATE 50 MG PO CAPSIndications: Schizoaffective disorder, chronic condition ([facility]) 1 cap at bedtime 60 Cap [...] Aerosol Powder Breath Activated (Fluticasone-Ume clidinium-Vilant rodri) inhale 1 puff by mouth daily daily 60 Each 0 06/15/2023 Active amLODIPine Besylate 5 MG Oral Tablet (Norvasc) TAKE 1 TABLET DAILY 90 Tablet 3 06/24/2023 Active Lovastatin 40 MG Oral TabletIndication s:Dyslipidemia, goal LDL below 70 TAKE 1 TABLET DAILY 90 Tablet 3 06/24/2023 Active Levothyroxine Sodium 137 MCG Oral Tablet Take 1 Tablet by mouth daily. 0 07/24/2023 Active Carvedilol 12.5 MG Oral Tablet (Coreg)Indicatio ns:HOCM (hypertrophic obstructive cardiomyopathy) (HCC) TAKE 1 TABLET TWICE A DAY 180 Tablet 1 08/15/2023 Active Carvedilol 12.5 MG Oral Tablet (Coreg)Indicatio ns:HOCM (hypertrophic obstructive cardiomyopathy) (HCC) TAKE 1 TABLET TWICE A DAY 180 Tablet 1 02/08/2023 08/15/19 24 Discontinued documented as of this encounter (statuses as of 08/15/2023) Active Problems Problem Noted Date Diagnosed Date [...] as of this encounter (statuses as of 08/15/2023) Resolved Problems Problem Noted Date Diagnosed Date [...] as of this encounter (statuses as of 08/15/2023) Immunizations Name Administration Dates Next Due COVID-19 mRNA, LNP-s, No Pre serve, 2-Dose Series (Moderna) 07/25/2020,06/27/2020 HEP A - Hepatitis A (Adult > 18 yrs) 09/09/2002, 04/11/2002 Hepatitis B, 20+ yrs 09/09/2002,05/12/2002,04/11 PPD 09/08/2006 Pneumococcal Conjugate Vacci ne, 20-valent ([id number]) 11/14/2021 Pneumococcal Polysaccharide PPV23 (Pneumovax) 04/17/2003 Seasonal [...] encounter Miscellaneous Notes * Telephone Encounter - Harper Woodward RPh - 08/15/2023 3:18 PM EDT Signed Prescriptions: Disp Refills Carvedilol 12.5 MG Oral Tablet (Coreg) 180 Ta*1 Sig: TAKE 1 TABLET TWICE A DAYAuthorizing Provider: TYRELL PINEDA User: HARPER WOODWARD----- documented in this encounter Plan of Treatment Upcoming Encounters Date Type Department Care Team (Late st Contact Info) Description 08/27/2023 1:00 PM EDT Office Visit Pulmonary Medicine, [facility] [address] [place] [address] Attila Hussein MD [address] [place] [phone] 09/02/2023 2:30 PM EDT Telemedicine Nutrition, [facility] [address] [place] [address] Barbara Mukherjee, ELIECER 132 [facility] [place] [address] 10/24/2023 11:20 AM EDT Office Visit [facility] Ctr [facility] [address] [place] [phone] Celestina Pineda, DO [address] [place] [address] 11/05/2023 11:20 AM EDT Office Visit [facility] [address] [place] [address] Renae Costello CRNP [address] [place] [address] 03/10/2024 12:20 PM EDT Office Visit [facility] [address] [place] [address] Tyrell Pineda, DO [address] [place] [address] Scheduled Procedures Name Priority Associated Diagnoses Date/Ti me COLONOSCOPY FLEXIBLE PROXIMAL DIAGNOSTIC Recall History of colon polyps Health Maintenance Due Date Last Done Comments DTaP,Tdap,and Td Vaccines (2 - Td or Tdap) 04/15/2022 04/15/2012, 04/28/2006 COVID-19 Vaccine ( season) 2023 07/25/2020, 06/27/2020 COLONOSCOPY-EVERY 3 YRS AGES 18-100 09/09/2023 09/08/2020, 08/29/2015, 08/29/2015, Additional history exists Depression Screening 11/20/2023 11/19/2022 GFR 08/05/2024 08/06/2023, 05/14, 03/04/2023, Additional history exists HbA1c 08/05/2024 08/06/2023, 02/10, 11/19/2022, Additional history exists O2 ASSESSMENT COMPLETED IN PAST YEAR FOR COPD 08/05/2024 08/06/2023 TSH 08/05/2024 08/06/2023, 10/2023, 03/04/2023, Additional history exists Albumin/Creatinine Ratio [...] 07/31/2021 LUNG CANCER SCREENING - USE SMARTSET [id number] Completed 07/30/2022, 07/16/2021, 07/14/2018, Additional history exists Influenza Vaccine (FLU shot) Completed 03/04/2023, 02/21/2022, 02/19/2022, Additional history exists GARDASIL-HPV IMMUNIZATION SERIES Aged Out No longer eligible based on patient's age to complete this topic MENINGOCOCCAL (MENACTRA/MENVEO) Aged Out No longer eligible based on patient's age to complete this topic documented as of this encounter Medical Devices Implanted Type Area Statistical Secretary Device Identifier Shelf Expiration Date Model / Serial / Lot Mesh Supramesh 4x8 [id number] - [id number] Implanted:Qty: 1 on 05/27/2009 at OR [facility] [place] N/A: Abdomen CR BARD : DAVOL 03/12/2011 [id number] / / [id number] documented as of this encounter Visit Diagnoses [...] and were consensually agreed upon. Care Teams Computer Tech Relationship Specialty Start Date End Date Tyrell Pineda DO [address] [place] [address] PCP - General Family Medicine 12/17/17 documented as of this encounter
--- OUTSIDE RECORDS SUMMARY | 2023-09-26 04:38 | External Medical Summary ---
Author Name Unknown Address Unknown Organization K09:LABORATORY [place] [address] Laboratory Report Ordering Provider Test Date Status AMRIT FLORES 06/11/2023 05:40:00 Final Observation Date Value Abnormality Reference (Units ) Status BUN 06/11/2023 05:40:00 15 6-20 (mg/dL) Final Creatinine 06/11/2023 05:40:00 0.8 0.6-1.2 (mg/dL) Final Glomerular filtration rate/1.73 sq M.predicted [Volume Rate/Area] in Serum, Plasma or Blood by Creatinine-based formula (CKD-EPI) 06/11/2023 05:40:00 >90 >=60 (mL/min) Final eGFR is calculated based on the CKD-EPI 2020 equation SODIUM 06/11/2023 05:40:00 137 135-146 (m mol/L) Final Potassium 06/11/2023 05:40:00 4.4 3.5-5.1 (m mol/L) Final Cl 06/11/2023 05:40:00 98 98-107 (mm ol/L) Final CO2 06/11/2023 05:40:00 29 22-32 (mmo l/L) Final Anion gap 06/11/2023 05:40:00 10 7-15 (mmol /L) Final Glucose 06/11/2023 05:40:00 104 70-120 (mg /dL) Final Calcium 06/11/2023 05:40:00 9.4 8.4-10.2 ( mg/dL) Final Performing Location [facility] [place] [address]
--- OUTSIDE RECORDS SUMMARY | 2023-09-26 04:38 | External Medical Summary ---
Author Name Unknown Address Unknown Organization K01:[facility] [place] [address] [place] [address] Laboratory Report Ordering Provider Test Date Status LUIS MANUEL MORALES 06/17/2023 05:34:36 Final Observation Date Value Abnormality Reference (Units ) Status TSH 06/17/2023 05:34:36 2.17 0.27-4.20 (uIU/mL) Final Performing Location LABORATORY [facility] - [address] [place] [id number]
--- OUTSIDE RECORDS SUMMARY | 2023-09-26 04:38 | External Medical Summary ---
Author Name Unknown Address Unknown Organization K09:[facility]ATORY [place] [address] Laboratory Report Ordering Provider Test Date Status AMRIT FLORES 06/11/2023 05:40:00 Final Observation Date Value Abnormality Reference (Units ) Status WBC, Total 06/11/2023 05:40:00 15.29 Above high normal 4 .00-10.80 (K/uL) Final RBC 06/11/2023 05:40:00 5.98 4.50-5.25 (M/uL) Final Hemoglobin 06/11/2023 05:40:00 16.4 14.0-16.8 (g/dL) Final HCT 06/11/2023 05:40:00 52.2 Above high normal 40 .0-48.4 (%) Final MCV 06/11/2023 05:40:00 87.3 82.0-99.5 (fL) Final MCH 06/11/2023 05:40:00 27.4 27.0-34.0 (pg) Final MCHC 06/11/2023 05:40:00 31.4 32.0-36.0 (g/dL) Final RDW 06/11/2023 05:40:00 15.8 11.5-15.5 (%) Final Platelets 06/11/2023 05:40:00 263 140-400 (K /uL) Final MPV 06/11/2023 05:40:00 9.7 6.6-11.1 ( fL) Final Performing Location [facility] [place] [address]
--- OUTSIDE RECORDS SUMMARY | 2023-09-26 04:38 | External Medical Summary | Summary of Care ---
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 Name Role Phone Tyrell Pineda Primary Care Provider Reason for Visit * Reason Comments eRx-Medication Refill Encounter Details Date Type Department Care Team (Late st Contact Info) Description 06/23/2023 Refill Family Practice [facility] [address] [place] [address] Ramsey Rincon DO [address] [place] [id number] Dyslipidemia, goal LDL below 70 Allergies Active Allergy Reactions Criticality Noted Date Comments Bee Stings Hives Medium 03/08/2009 Niacin Itching High 03/26/2011 Penicillin V Potassium 08/26/2007 Pt told as a child he was allergic to it documented as of this encounter (statuses as of 06/24/2023) Medications Medication Sig Dispensed Refills Start Date [...] (Ipratropium-Alb uterol)Indicatio ns:COPD, severity to be determined ([facility]) USE 1 INHALATION ORALLY 4 TIMES DAILY [...] Tablet (Singulair)Indic ations:COPD, severity to be determined ([facility]) TAKE 1 TABLET DAILY 90 Tablet 2 05/19/2023 Active Lisinopril 40 MG Oral TabletIndication s:HTN, goal below 130/80 TAKE 1 TABLET DAILY 90 Tablet 2 05/19/2023 Active Furosemide 20 MG Oral Tablet (Lasix) take 1 tablet by mouth Daily 30 Tablet 0 06/15/2023 Active Trelegy Ellipta 100-62.5-25 MCG/ACT Aerosol Powder Breath Activated (Fluticasone-Ume clidinium-Vilant rodri) inhale 1 puff by mouth daily daily 60 Each 0 06/15/2023 Active amLODIPine Besylate 5 MG Oral Tablet (Norvasc) TAKE 1 TABLET DAILY 90 Tablet 3 06/24/2023 Active Lovastatin 40 MG Oral TabletIndication s:Dyslipidemia, goal LDL below 70 TAKE 1 TABLET DAILY 90 Tablet 3 06/24/2023 Active amLODIPine Besylate 5 MG Oral Tablet (Norvasc) TAKE 1 TABLET DAILY 90 Tablet 3 07/05/2022 06/24/19 24 Discontinued Lovastatin 40 MG Oral TabletIndication s:Dyslipidemia, goal LDL below 70 TAKE 1 TABLET DAILY 90 Tablet 3 07/05/2022 06/24/19 24 Discontinued documented as of this encounter (statuses as of 06/24/2023) Active Problems Problem Noted Date Diagnosed Date [...] as of this encounter (statuses as of 06/24/2023) Resolved Problems Problem Noted Date Diagnosed Date [...] goal below 140/90 08/26/200702/28 HYPOTHYROIDISM NOS 08/26/2007 Asthma, allergic 08/26/2007 11/02/2009 Mixed dyslipidemia 08/26/2007 9 Overview: Per Lipid Taxonomy. Obesity, BMI not known 08/26/200708/08 Overview: Per Obesity Taxonomy History of tobacco use 08/26/200711/14 documented as of this encounter (statuses as of 06/24/2023) Immunizations Name Administration Dates Next Due COVID-19 mRNA, LNP-s, No Pre serve, 2-Dose Series (Moderna) 07/25/2020,06/27/2020 HEP A - Hepatitis A (Adult > 18 yrs) 09/09/2002, 04/11/2002 Hepatitis B, 20+ yrs 09/09/2002,05/12/2002,04/11 PPD 09/08/2006 Pneumococcal Conjugate Vacci ne, 20-valent ([id number]) 11/14/2021 Pneumococcal Polysaccharide PPV23 (Pneumovax) 04/17/2003 Seasonal [...] encounter Miscellaneous Notes * Telephone Encounter - Hal Cruz [facility] - 06/24/2023 10:25 AM EST Signed Prescriptions: Disp Refills amLODIPine Besylate 5 MG Oral Tablet (Norv*90 Tab*3 Sig: TAKE 1 TABLET DAILYAuthorizing Provider: TYRELL PINEDAOrdering User: HAL CRUZ Lovastatin 40 MG Oral Tablet 90 Tab*3 Sig: TAKE 1 TABLET DAILYAuthorizing Provider: TYRELL PINEDA Ordering User: HAL CRUZ documented in this encounter Plan of Treatment Upcoming Encounters Date Type Department Care Team (Late st Contact Info) Description 07/02/2023 2:20 PM EST Office Visit Pulmonary Medicine, [facility] [address] [place] [address] Attila Hussein MD [address] [place] [address] 09/02/2023 2:30 PM EDT Telemedicine Nutrition, [facility] [address] [place] [address] Barbara Mukherjee, ELIECER [address] [facility] [place] [address] Scheduled Procedures Name Priority Associated Diagnoses Date/Ti [...] IN PAST YEAR FOR COPD 11/20/2023 11/19/2022 HbA1c 03/04/2024 03/04/2023, 11/09, 05/14/2022, Additional history exists GFR 06/11/2024 06/11/2023, 02/10, 11/19/2022, Additional history exists Albumin/Creatinine Ratio 05/14/2025 05/14/2022 [...] 07/31/2021 LUNG CANCER SCREENING - USE SMARTSET [id number] Completed 07/30/2022, 07/16/2021, 07/14/2018, Additional history exists Influenza Vaccine (FLU shot) Completed 03/04/2023, 02/21/2022, 02/19/2022, Additional history exists GARDASIL-HPV IMMUNIZATION SERIES Aged Out No longer eligible based on patient's age to complete this topic MENINGOCOCCAL (MENACTRA/MENVEO) Aged Out No longer eligible based on patient's age to complete this topic documented as of this encounter Medical Devices Implanted Type Area Mirror Painter Device Identifier Shelf Expiration Date Model / Serial / Lot Mesh Marielena [id number] - [id number] [place] 05/27/2009 [place] [facility] [place] Abdomen CR BARD : DAVOL 03/12/2011 [id number] / / [id number] documented as of this encounter Visit Diagnoses Diagnosis Dyslipidemia, goal LDL below 70 Other and unspecified hyperlipidemia documented in [...] and were consensually agreed upon. Care Teams Crabbing Machine Operator Relationship Specialty Start Date End Date Tyrell Pineda DO [address] [place] [address] PCP - General Family Medicine 12/17/17 documented as of this encounter
[2023-09-26] MEDS: NYSTATIN POWDER 15GM BTL EXT SCH (06:08)
[2023-09-26 06:48] LABS: Hematocrit (blood only) 48.1 % (42.0-52.0); Hemoglobin 15.8 g/dl (14.0-18.0); Mean Corpuscular Hgb Conc 32.8 g/dL (32.0-36.0); Mean Corpuscular Volume 85.1 fL (80.0-100.0); Mean Platelet Volume 8.9 fL (9.4-12.4); Platelet Count 319 K/uL (130-400); RDW Coefficient of Variation 14.7 % (11.5-14.5); RDW Standard Deviation 45.9 fL (36.4-46.3); Red Blood Count 5.65 M/uL (4.70-6.10); White Blood Count 15.51 K/ul (4.8-10.8)
[2023-09-26 07:04] LABS: BUN Creatinine Ratio 20.6 (10-20); Calcium 8.9 mg/dl (8.6-10.3); Creatinine Clr Calc Pharmacy 162.6 ml/min; Est GFR (African American) 121.6 ml/min; Est GFR (Non-African American) 104.9 ml/min; Magnesium 2.2 mg/dl (1.7-2.4); Potassium 3.6 mmol/L (3.5-5.1)
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
[2023-09-26] MEDS: bisacodyL 10 MG SUPP PR STA (12:56)
--- NOTE | 2023-09-26 13:54 | Communication Note ---
Date of Service: September 26, 2023 By CMS guidelines, a determination that the admission or continued stay is not medically necessary has been made by a member of the UR committee and a physic boy for this hospital stay, therefore a Code 44 will be completed and the Inpatient admission will be changed to outpatient.
== END 2023-09-26 16:41 | disposition home or self-care (01) | DRG 191 ==
LOC: ED 21:49 → INTOOBSV 09-25 01:11 → EDINP 09-25 01:11 → 2N 09-25 02:06